=== PATIENT | female | born 1940 | race Caucasian/White ===

== ENCOUNTER 2023-04-06 23:38 | Emergency (ER) | payer MEDICARE, SELFPAY ==
[2023-04-06 23:49] VITALS: BP 177/73; PULSE 83; RESP 16; TEMP 36.4; O2SAT 98; BMI 25.0
--- NOTE | 2023-04-07 00:27 | ED.ABDPAIN ---
HPI - Abdominal Pain General Time Seen by Provider: 00:12 <Khushbu Higginbotham Filed: 04/07/23 02:26> Date Seen: 04/07/23 <Khushbu Higginbotham Filed: 04/07/23 02:26> Chief Complaint: Abdominal Pain <Khushbu Higginbotham Filed: 04/07/23 02:26> Stated Complaint: stomach ache, vomitting <Khushbu Luna Last Filed: 04/07/23 02:26> Time Seen by Provider: 04/06/23 23:41 <Khushbu Higginbotham Filed: 04/07/23 02:26> Source: patient <Khushbu Higginbotham Filed: 04/07/23 02:26> Mode of arrival: ambulatory <Khushbu Higginbotham Filed: 04/07/23 02:26> Limitations: no limitations <Khushbu Higginbotham Filed: 04/07/23 02:26> History of Present Illness HPI narrative: Patient is an 83-year-old female who presents with 1 episode of lower left-sided abdominal pain beginning this evening at 8:00 p.m. She notes the pain was diffuse and radiated around to her back. Patient described the pain as being ?stabbing? and lasted for approximately 1-2 hours. She tried taking 1 times and drinking water but was unable to keep that down and had 1 episode of emesis. Her pain was a 10/10 at that time but has since subsided to a 4/10. She has a history of appendectomy, hysterectomy, and a hernia that has never been operated on. Daughter states that at the time of the patients pain her abdomen was distended and hard as a rock. Patient denies any fevers, chills, chest pain, palpitations, shortness of breath, hematemesis, constipation, or any other complaints at this time. Denies any recent ill contacts. No recent travel. <Khushbu Higginbotham Filed: 04/07/23 02:26> Related Data Home Medications: Home Medications Medication Instructions Recorded Confirmed alendronate 70 mg tablet mg PO 04/06/23 amlodipine 5 mg tablet 5 mg PO DAILY 04/06/23 04/06/23 losartan 100 mg tablet 100 mg PO DAILY 04/06/23 04/06/23 metoprolol succinate 25 mg 25 mg PO DAILY 04/06/23 04/06/23 tablet,extended release 24 hr <Khushbu Zayas Filed: 04/07/23 02:26> Allergies/Adverse Reactions: Allergies Allergy/AdvReac Type Severity Reaction Status Date / Time No Known Drug Allergies Allergy Verified 04/06/23 23:53 <Khushbu Zayas Filed: 04/07/23 02:26> Review of Systems Const Denies: fever, chills or fatigue <Khushbu Miralupa Filed: 04/07/23 02:26> Cardio Denies: chest pain, palpitations, lightheadedness, shortness of breath with exertion or shortness of breath when lying down <Khushbu Miralupa - Last Filed: 04/07/23 02:26> Resp Denies: shortness of breath or cough <Khushbu Miralupa Filed: 04/07/23 02:26> GI Reports: abdominal pain, nausea and vomiting (one episode); Denies: heartburn, constipation or excessive passing of gas <Khushbu Miralupa Filed: 04/07/23 02:26> Denies: urinary frequency, urinary urgency or urinary incontinence <Khushbu Miralupa Filed: 04/07/23 02:26> Musculo Reports: back pain (resolved) <Khushbu [employer] Filed: 04/07/23 02:26> Endo Denies: fatigue <Khushbu Miralupa Filed: 04/07/23 02:26> PFSH PFSH Social History: Social History Smoking Status: Never smoker Do you use any of these nicotine containing products: None How often do you have a drink containing alcohol: never AUDIT-C Alcohol total score: 0 Non-prescribed substance use: denies use <Khushbu [employer] Filed: 04/07/23 02:26> Exam Const: Vital Signs, click to edit/add: Vital Signs - 24 hr 04/06/23 23:49 04/07/23 02:13 Temperature 97.6 F 97.6 F Pulse Rate [Pulse Oximeter] 83 74 Respiratory Rate 16 16 Blood Pressure [Ri ght Upper Arm] 177/73 H 155/74 H Pulse Oximetry 98 98 Oxygen Delivery Me thod Room Air Room Air <[employer] Last Filed: 04/07/23 02:26> Vital Signs, click to edit/add: Vital Signs - 24 hr 04/06/23 23:49 04/07/23 02:13 Temperature 97.6 F 97.6 F Pulse Rate [Pulse Oximeter] 83 74 Respiratory Rate 16 16 Blood Pressure [Ri ght Upper Arm] 177/73 H 155/74 H Pulse Oximetry 98 98 Oxygen Delivery Me thod Room Air Room Air <Addi Gauthier MD - Last Filed: 04/07/23 02:31> Documenting provider has reviewed patient's vital signs: yes <[employer] Last Filed: 04/07/23 02:26> Common normals: no apparent distress, average body habitus, oriented x3, no limitations, healthy appearing, alert and well nourished <[employer] Last Filed: 04/07/23 02:26> General appearance: well developed <[employer] Last Filed: 04/07/23 02:26> HENMT: Common normals: normocephalic, head/scalp atraumatic, hearing grossly normal bilaterally, external ears normal, external nose normal, moist oral mucous membranes, oropharynx normal, dentition normal and gingiva normal <[employer] Last Filed: 04/07/23 02:26> Head and scalp: normocephalic and atraumatic <[employer] Last Filed: 04/07/23 02:26> Nose: external nose normal <[employer] Last Filed: 04/07/23 02:26> External ear: external ears normal <[employer] Last Filed: 04/07/23 02:26> Neck & C-Spine: Common normals: no JVD <[employer] Last Filed: 04/07/23 02:26> Chest: Common normals: inspection of chest normal, palpation of chest normal, inspection of breasts normal and palpation of breasts normal <[employer] Last Filed: 04/07/23 02:26> Resp: Common normals: normal respiratory effort, no retractions, no use of accessory muscles and clear to auscultation bilaterally <[employer] Last Filed: 04/07/23 02:26> Auscultation: clear to auscultation bilaterally <Khushbu Miralupa - Last Filed: 04/07/23 02:26> Cardio: Common normals: no JVD, regular rate, regular rhythm, S1 normal heart sound, S2 normal heart sound, no gallops, no clicks, no murmurs, no rub and peripheral pulses 2+ throughout <[employer] Last Filed: 04/07/23 02:26> Rate: regular rate <Khushbu Miralupa - Last Filed: 04/07/23 02:26> Rhythm: regular rhythm <Khushbu Miralupa - Last Filed: 04/07/23 02:26> Heart sounds: S1 normal and S2 normal <Khushbu Miralupa - Last Filed: 04/07/23 02:26> Peripheral pulses: pulses 2+ throughout <Khushbu Miralupa - Last Filed: 04/07/23 02:26> GI: Common normals: Normal to inspection, nondistended, normoactive bowel sounds present and soft to palpation <Khushbu [employer] Last Filed: 04/07/23 02:26> Palpation: soft and hernia (reproducible left inguinal or femoral); non-tender, no guarding and not rigid <Khushbu [employer] Last Filed: 04/07/23 02:26> : Common normals: no CVA tenderness <Khushbu Miralupa - Last Filed: 04/07/23 02:26> Bladder/kidney exam: no CVA tenderness <[employer] Last Filed: 04/07/23 02:26> External Female Exam: hernia (reproducible left inguinal or femoral) <Khushbu [employer] Last Filed: 04/07/23 02:26> Back & Pelvis: Common normals: no CVA tenderness <Khushbu Miralupa - Last Filed: 04/07/23 02:26> Neuro: Common normals: oriented x3 <[employer] Last Filed: 04/07/23 02:26> Sensorium/orientation: alert <[employer] Last Filed: 04/07/23 02:26> Speech: speech normal <[employer] Last Filed: 04/07/23 02:26> Skin: Common normals: no rashes or lesions noted <Khushbu Gall - Last Filed: 04/07/23 02:26> General skin exam: no rashes or lesions noted <Khushbu Chana - Last Filed: 04/07/23 02:26> Course Course ED Course: I agree with the documentation above, I personally saw the patient, and was part of the HPI examination and treatment of this patient. All questions were answered for both the patient the patient's daughter. <Addi Gauthier MD - Last Filed: 04/07/23 02:31> Reevaluation(s) Time of Reevaluation #1: 00:26 <Khushbudavey Zayas - Last Filed: 04/07/23 02:26> Reevaluation #1: Patient evaluated by Dr. Gauthier, family updated on plan. <Khushbu Chana - Last Filed: 04/07/23 02:26> Time of Reevaluation #2: 02:00 <Khushbu Chana - Last Filed: 04/07/23 02:26> Reevaluation #2: Updated patient with lab and imaging results. Patient is doing well with mild residual discomfort at this time with resolved nausea. Discussed plan for follow-up and return precautions advised. <Khushbu Chana - Last Filed: 04/07/23 02:26> Vital Signs Vital signs: Initial Vital Signs Temperature 97.6 F 04/06/23 23:49 Temperature Source Temporal Artery Scan 04/06/23 23:49 Pulse Rate 83 04/06/23 23:49 Respiratory Rate 16 04/06/23 23:49 Blood Pressure 177/73 H 04/06/23 23:49 Blood Pressure Mean 107 H 04/06/23 23:49 Blood Pressure Position Sitting 04/06/23 23:49 Pulse Oximetry 98 04/06/23 23:49 Oxygen Delivery Method Room Air 04/06/23 23:49 Vital Signs Temperature 97.6 F 04/06/23 23:49 Pulse Rate 83 04/06/23 23:49 Respiratory Rate 16 04/06/23 23:49 Blood Pressure 177/73 H 04/06/23 23:49 Pulse Oximetry 98 04/06/23 23:49 Oxygen Delivery Method Room Air 04/06/23 23:49 Temperature 97.6 F 04/07/23 02:13 Pulse Rate 74 04/07/23 02:13 Respiratory Rate 16 04/07/23 02:13 Blood Pressure 155/74 H 04/07/23 02:13 Pulse Oximetry 98 04/07/23 02:13 Oxygen Delivery Method Room Air 04/07/23 02:13 <Khushbu Zayas - Last Filed: 04/07/23 02:26> Initial Vital Signs Temperature 97.6 F 04/06/23 23:49 Temperature Source Temporal Artery Scan 04/06/23 23:49 Pulse Rate 83 04/06/23 23:49 Respiratory Rate 16 04/06/23 23:49 Blood Pressure 177/73 H 04/06/23 23:49 Blood Pressure Mean 107 H 04/06/23 23:49 Blood Pressure Position Sitting 04/06/23 23:49 Pulse Oximetry 98 04/06/23 23:49 Oxygen Delivery Method Room Air 04/06/23 23:49 Vital Signs Temperature 97.6 F 04/06/23 23:49 Pulse Rate 83 04/06/23 23:49 Respiratory Rate 16 04/06/23 23:49 Blood Pressure 177/73 H 04/06/23 23:49 Pulse Oximetry 98 04/06/23 23:49 Oxygen Delivery Method Room Air 04/06/23 23:49 Temperature 97.6 F 04/07/23 02:13 Pulse Rate 74 04/07/23 02:13 Respiratory Rate 16 04/07/23 02:13 Blood Pressure 155/74 H 04/07/23 02:13 Pulse Oximetry 98 04/07/23 02:13 Oxygen Delivery Method Room Air 04/07/23 02:13 <Addi Gauthier MD - Last Filed: 04/07/23 02:31> MDM - Abdominal Pain MDM Narrative Medical decision making narrative: Patient is an 83-year-old female with a pertinent medical history of hypertension, hysterectomy, appendectomy, and known hernia who presents with one episode of diffuse stabbing abdominal pain radiating to her back beginning this evening at 20:00 lasting 1-2 hours. Patient tried 1 Tums tablet with no relief, followed by an episode of emesis. Her pain has since subsided and she is no longer nauseous. On exam, patient is afebrile and in no acute distress. Vitals are stable, but she is hypertensive upon arrival. Abdomen is soft, nontender and nondistended with normoactive bowel sounds. A reproducible left inguinal or femoral hernia was appreciated and reducible on exam. Will order Troponin, ECG, CBC, CRP, CMP, Lactate, Lipase, and CT abdomen to rule out SBO or bowel herniation. Will start patient on fluids for now as her pain is well controlled at this time. Discussed plan with patient and family, they understand and are in agreement. Lactate WNL. POC Troponin WNL, will repeat due to episode of emesis. Hgb, WBC, and RBCs mildly decreased. Glucose mildly elevated. Otherwise, no significant abnormal labs. CT findings consistent with a left inguinal hernia. Low suspicion of incarceration due to physical exam findings, patients level of pain, and absence of nausea and vomiting at this time. Patient passed ambulatory test. Accidental finding of a 4.4 cm adnexal cyst noted on CT, patient is aware and has been following with her PCP. Discussed the importance of following up with general surgery to discuss options for the hernia. Return precautions advised including fever, chills, increasing abdominal pain, nausea, and/or vomiting. Patient and family understand and are in agreement with the plan. <Khushbu Higginbotham Filed: 04/07/23 02:26> Differential Diagnosis Differential diagnosis: Likely abdominal pain, constipation, pancreatitis and small bowel obstruction <Khushbu Higginbotham Filed: 04/07/23 02:26> Lab Data Attestation: I reviewed the patient's lab results. <Khushbu Higginbotham Filed: 04/07/23 02:26> Labs: Lab Results 04/07/23 04/07/23 04/07/23 Range/Units 00:15 00:18 01:45 WBC 4.41 L (4.50-11.00) K/uL RBC 3.91 L (4.00-5.20) m/uL Hgb 10.5 L (12.0-16.0) gm/dL Hct 33.3 (33.0-51.0) % MCV 85 (80-100) fL MCH 27 (26-34) pg MCHC 32 (32-36) gm/dL RDW Coeff of Guillermo 14.1 (11.5-15.5) % Plt Count 155 (140-440) K/uL Neut % (Auto) 70.5 (42.0-72.0) % Lymph % (Auto) 16.6 L (20-44) % Simpson % (Auto) 7.7 (0.0-11.0) % Eos % (Auto) 4.5 (0.0-7.0) % Baso % (Auto) 0.7 (0.0-3.0) % Neut # (Auto) 3.10 (1.7-7.0) K/uL Lymph # (Auto) 0.70 L (0.90-2.90) K/uL Simpson # (Auto) 0.30 (0.00-0.90) K/UL Eos # (Auto) 0.20 (0.00-0.50) K/uL Baso # (Auto) 0.00 (0.00-0.30) K/uL Abs Immat Gran (auto) 0.00 (0.00-0.30) K/uL Imm/Tot Granulo (auto) 0.0 % Sodium 135 (135-149) mmol/L Potassium 3.6 (3.6-5.1) mmol/L Chloride 100 (96-114) mmol/L Carbon Dioxide 24 (20-32) mmol/L Anion Gap 11 (7-15) mEq/L BUN 28 (7-30) mg/dL Creatinine 0.7 (0.5-1.5) mg/dL Estimated Creat Clear 36.52 Estimated GFR 85 ml/min Glucose 182 H (60-115) mg/dL Lactate 0.9 (0.5-1.9) mmol/L Calcium 9.4 (8.4-10.6) mg/dL Total Bilirubin 0.3 (0.1-1.5) mg/dL Direct Bilirubin 0.0 (0.0-0.5) mg/dL AST 28 (12-35) U/L ALT 24 (4-35) U/L Alkaline Phosphatase 63 (40-150) U/L C-Reactive Protein 0.6 (0.5-1.0) mg/dL Total Protein 7.4 (6.0-8.3) g/dL Albumin 4.6 (3.3-5.0) g/dL Lipase 292 (23-300) U/L POC Troponin I 0.02 0.01 (0.01-0.04) ng/ml <Khushbu Zayas - Last Filed: 04/07/23 02:26> Lab Results 11/04/07/23 04/07/23 Range/Units 00:15 00:18 01:45 WBC 4.41 L (4.50-11.00) K/uL RBC 3.91 L (4.00-5.20) m/uL Hgb 10.5 L (12.0-16.0) gm/dL Hct 33.3 (33.0-51.0) % MCV 85 (80-100) fL MCH 27 (26-34) pg MCHC 32 (32-36) gm/dL RDW Coeff of Guillermo 14.1 (11.5-15.5) % Plt Count 155 (140-440) K/uL Neut % (Auto) 70.5 (42.0-72.0) % Lymph % (Auto) 16.6 L (20-44) % Simpson % (Auto) 7.7 (0.0-11.0) % Eos % (Auto) 4.5 (0.0-7.0) % Baso % (Auto) 0.7 (0.0-3.0) % Neut # (Auto) 3.10 (1.7-7.0) K/uL Lymph # (Auto) 0.70 L (0.90-2.90) K/uL Simpson # (Auto) 0.30 (0.00-0.90) K/UL Eos # (Auto) 0.20 (0.00-0.50) K/uL Baso # (Auto) 0.00 (0.00-0.30) K/uL Abs Immat Gran (auto) 0.00 (0.00-0.30) K/uL Imm/Tot Granulo (auto) 0.0 % Sodium 135 (135-149) mmol/L Potassium 3.6 (3.6-5.1) mmol/L Chloride 100 (96-114) mmol/L Carbon Dioxide 24 (20-32) mmol/L Anion Gap 11 (7-15) mEq/L BUN 28 (7-30) mg/dL Creatinine 0.7 (0.5-1.5) mg/dL Estimated Creat Clear 36.52 Estimated GFR 85 ml/min Glucose 182 H (60-115) mg/dL Lactate 0.9 (0.5-1.9) mmol/L Calcium 9.4 (8.4-10.6) mg/dL Total Bilirubin 0.3 (0.1-1.5) mg/dL Direct Bilirubin 0.0 (0.0-0.5) mg/dL AST 28 (12-35) U/L ALT 24 (4-35) U/L Alkaline Phosphatase 63 (40-150) U/L C-Reactive Protein 0.6 (0.5-1.0) mg/dL Total Protein 7.4 (6.0-8.3) g/dL Albumin 4.6 (3.3-5.0) g/dL Lipase 292 (23-300) U/L POC Troponin I 0.02 0.01 (0.01-0.04) ng/ml <Addi Gauthier MD - Last Filed: 04/07/23 02:31> ECG Data Attestation: I personally reviewed and interpreted this ECG as follows: <Addi Gauthier MD - Last Filed: 04/07/23 02:31> Prior ECG tracings: not available for review <Addi Gauthier MD - Last Filed: 04/07/23 02:31> Interpretation: EKG shows normal sinus rhythm with a normal ventricular rate, some non does script ST wave abnormalities are notable laterally inferiorly. <Addi Gauthier MD - Last Filed: 04/07/23 02:31> Discharge Plan Discharge Clinical Impression: Inguinal hernia of left side without obstruction or gangrene <Khushbu Luna Last Filed: 04/07/23 02:26> Patient Disposition: Home w/ Parent or Adult <Khushbu Luna Last Filed: 04/07/23 02:26> Condition: Stable <Khushbu Luna Last Filed: 04/07/23 02:26> Instructions: Open Herniorrhaphy (DC), Laparoscopic Herniorrhaphy (DC), Inguinal Hernia (ED), Inguinal Hernia Repair (DC) <Khushbu Luna Last Filed: 04/07/23 02:26> Additional Instructions: Home, rest, follow-up with general surgery, return here if increasing abdominal pain vomiting, or other issues. Recommend clear fluids times 12 hours, then and slowly increase diet <Khushbu Luna Last Filed: 04/07/23 02:26> Activity Level: Light activity <Khushbu Zayas - Last Filed: 04/07/23 02:26> Light activity <Addi Gauthier MD - Last Filed: 04/07/23 02:31> Prescriptions: No Action alendronate 70 mg tablet PO Patient Comments: PLEASE SEE ATTACHED FOR DETAILED DIRECTIONS amlodipine 5 mg tablet 5 mg PO DAILY metoprolol succinate 25 mg tablet extended release 24 hr 25 mg PO DAILY losartan 100 mg tablet 100 mg PO DAILY <Khushbu Zayas - Last Filed: 04/07/23 02:26> Follow Up/Referrals: Maritza Silva MD [Staff Physician] - Gui Woo MD [Staff Physician] - Krys Murillo PA-C [Primary Care Provider] - Juli Poole MD [Staff Physician] - <Khushbu Zayas - Last Filed: 04/07/23 02:26> Stand Alone Forms: MyHealth Info Instructions <Khushbu Zayas - Last Filed: 04/07/23 02:26>
--- NOTE | 2023-04-07 00:34 | CRLHL7_ITS ---
For Patients: As a result of the Century Cures Act, medical imaging exams and procedure reports are released immediately into your electronic medical record. You may view this report before your referring provider. If you have questions, please contact your health care provider. INDICATION: Left lower quadrant pain. TECHNIQUE: CT abdomen and pelvis without contrast. COMPARISON: None. FINDINGS: Lower chest: Scattered atelectasis. 5 millimeter right middle lobe pulmonary nodule. Liver: Normal in size and attenuation. No suspicious masses. Gallbladder and bile ducts: No stones or inflammation. No biliary dilatation. Pancreas: Unremarkable. No mass or inflammation. Spleen: Normal in size. No masses. Adrenal glands: Normal in size. No nodules. Kidneys: Normal in size. No suspicious masses, stones, or hydronephrosis. GI tract: Colonic diverticulosis. Normal in caliber. No sign of mass or inflammation. Vasculature: Moderate aorto iliac arterial calcifications. Abdominal aorta is normal in caliber. Lymph nodes: No lymphadenopathy. Peritoneum/Abdominal Wall: Left inguinal hernia containing a loop of small bowel without obstruction. No sign of mass or infiltration. No free air or significant free fluid. Pelvis: Incidental 4.4 centimeter multiloculated cystic lesion in the right adnexa.. No pelvic masses. Bones: Right hip arthroplasty causing streak artifact. Degenerative changes. IMPRESSION: Left inguinal hernia containing loop of small bowel without obstruction. Unfortunately unable to evaluate for strangulation/ischemia secondary to the noncontrast nature of the study, although no secondary findings seen on this examination. Recommend correlation with lactic acid and with physical examination to evaluate for incarceration. Colonic diverticulosis without diverticulitis. Incidental 4.4 centimeter multiloculated cystic lesion in the right adnexa. Recommend correlation with prior imaging if available. If not, consider outpatient nonemergent pelvic ultrasound. Please note that all CT scans at this facility use dose modulation, iterative reconstruction, and/or weight-based dosing when appropriate to reduce radiation dose to as low as reasonably achievable. Dictated by Ladarius Zaidi MD @ 04/07/2023 1:45:14 AM (Electronically Signed)
[2023-04-07 00:38] LABS: Troponin, Point-of-Care* 0.02 ng/ml (0.01-0.04)
[2023-04-07 00:48] LABS: Lactate* 0.9 mmol/L (0.5-1.9)
[2023-04-07 00:50] LABS: Basophils Percent Auto 0.7 % (0.0-3.0); Eosinophils Percent Auto 4.5 % (0.0-7.0); Hematocrit 33.3 % (33.0-51.0); Hemoglobin* 10.5 gm/dL (12.0-16.0); Lymphocytes Percent Auto 16.6 % (20-44); Mean Corpuscular HGB Conc 32 gm/dL (32-36); Mean Corpuscular Hemoglobin 27 pg (26-34); Mean Corpuscular Volume 85 fL (80-100); Monocytes Percent Auto 7.7 % (0.0-11.0); Neutrophils Percent Auto 70.5 % (42.0-72.0); Platelet Count* 155 K/uL (140-440); RDW Coefficient of Variation % 14.1 % (11.5-15.5); Red Blood Count 3.91 m/uL (4.00-5.20); White Blood Count* 4.41 K/uL (4.50-11.00)
[2023-04-07 00:58] LABS: Albumin* 4.6 g/dL (3.3-5.0); Chloride* 100 mmol/L (96-114)
[2023-04-07 00:59] LABS: Sodium* 135 mmol/L (135-149)
[2023-04-07 01:00] LABS: Potassium* 3.6 mmol/L (3.6-5.1)
[2023-04-07 01:01] LABS: Creatinine* 0.7 mg/dL (0.5-1.5); Est. Creatinine Clearance* 36.52; Estimated Glomerular Filt Rate 85 ml/min
[2023-04-07 01:02] LABS: Alanine Aminotransferase* 24 U/L (4-35); Alkaline Phosphatase* 63 U/L (40-150); Anion Gap 11 mEq/L (7-15); Aspartate Amino Transferase* 28 U/L (12-35); Bilirubin Total* 0.3 mg/dL (0.1-1.5); Blood Urea Nitrogen* 28 mg/dL (7-30); Calcium* 9.4 mg/dL (8.4-10.6); Carbon Dioxide* 24 mmol/L (20-32); Glucose* 182 mg/dL (60-115); Lipase* 292 U/L (23-300); Total Protein* 7.4 g/dL (6.0-8.3)
[2023-04-07 01:05] LABS: C Reactive Protein* 0.6 mg/dL (0.5-1.0); Slide Review Reflex No
[2023-04-07 01:57] LABS: Troponin, Point-of-Care* 0.01 ng/ml (0.01-0.04)
[2023-04-07 02:13] VITALS: BP 155/74; PULSE 74; RESP 16; TEMP 36.4; O2SAT 98
== END 2023-04-07 02:20 | disposition home or self-care (01) ==
PROVIDERS: Emergency Provider Family Medicine; PCP Physician Assistant
DX: K40.90 Unilateral inguinal hernia, without obstruction or gangrene, not specified as recurrent (principal)
CPT/HCPCS: 36415; 74176; 80048; 80076; 83605; 83690; 84484; 85025; 86140; 93005; 99284; 99285

== ENCOUNTER 2023-05-09 12:49 | Emergency (ER) | payer MEDICARE, SELFPAY ==
[2023-05-09 13:03] VITALS: BP 185/87; PULSE 85; RESP 18; TEMP 36.6; O2SAT 96; BMI 24.8
--- OUTSIDE RECORDS SUMMARY | 2023-05-09 13:19 | XMS_ITS | Continuity of Care Document ---
Author Name Unknown Organization [facility] Address [address] [address] [place] [address] Phone Care Team Providers Care Water Filter Cleaner Name Role Phone Unavailable Unavailable Unavailable Allergies, Adverse Reactions, Alerts Substance Reaction Status Criticality No Known Allergies Active No Inform ation Medications Medication Instructions Dosage Effective Dates (start - stop) Status Comments estradiol 0.01% (0.1 mg/gram) vaginal cream insert (1G) by vaginal route every week 1 G - Active losartan 100 mg tablet take 1 tablet by oral route every day 100 MG - Active amlodipine 5 mg tablet take 1 tablet by oral route every day 5 MG - Active Co Q-10 100 mg capsule take 1 by oral route every evening 1 - Active Vitamin D3 50 mcg (2,000 unit) capsule - Active Tylenol Extra Strength 500 mg tablet take 2 tablet by oral route 2 times every day as needed 1000 MG - Active Vazalore 81 mg capsule take 1 capsule by oral route every day 81 MG - Active Dulcolax Stool Softener (docusate) 100 mg capsule take 1 capsule by oral route every day at bedtime as needed 100 MG - Active Procedures Procedure Date Offic/outpt E&m Estab Mod-hi 2 22 Ugi Endo; W/us Guid Asp/bx Advance Directives Directive Yes / No Effective Date File Name No Information Encounters Encounter Description Practice Location Reason(s) For Visit Diagnoses Date Provider Providers Copied on Encounter Offic/outpt E&m Estab Mod-hi 2 [facility], [address] [address], [place], [id number], [place] tel:[phone] [facility] GI Symptoms or Concerns (chief complaint) Pancreas cystGeneralized abdominal painRight ovarian cyst 2 No Information Referring Provider: Referral Self, USE FOR SELF REFERRALS. [facility], [address] [address], [place], [id number], [place] tel:[phone] [facility] Pancreas cyst Jan-0 1 Oscar Melendez [address] [facility], [facility] [address], [place], [address], [place]. tel:[phone] [facility], [address] [address], [place], [id number], [place] tel:[phone] [facility] No Information 1 Oscar Melendez [address] [facility], [facility] [address], [place], [place], [id number], [place]. tel:[phone] Referring Provider: Kandis Moore MD, [address] [facility] [address], [place], [address] . tel:[phone] [facility], [address] [address], [place], [id number], [place] tel:[phone] [facility] No Information 1 Oscar Melendez [address] [place] [address], [facility] [address], [place], [id number], [place]. tel:[phone] Family History Family Member Type Diagnosis Age At Onset Brother Problem (finding) Cancer, skin Immunizations Vaccine Date Status Comments influenza, high dose seasona l, preservative-free administered Note: [facility] bi-direct ional interface ; Source: Other Registry influenza, high dose seasona l, preservative-free administered Note: [facility] bi-direct ional interface ; Source: Other Registry influenza, high dose seasona l, preservative-free administered Note: [facility] bi-direct ional interface ; Source: Other Registry Influenza, seasonal, injecta ble, preservative free administered Note: [facility] bi-direct ional interface ; Source: Other Registry Novel [id number], injectable administered Note: [facility] bi-direct ional interface ; Source: Other Registry Influenza, seasonal, injecta ble, preservative free administered Note: [facility] bi-direct ional interface ; Source: Other Registry Influenza, seasonal, injecta ble, preservative free administered Note: [facility] bi-direct ional interface ; Source: Other Registry Influenza, seasonal, injecta ble, preservative free administered Note: [facility] bi-direct ional interface ; Source: Other Registry Influenza, seasonal, injectable administe red Note: [facility] bi- directional interface ; Source: Other Registry Influenza, seasonal, injectable administe red Note: [facility] bi- directional interface ; Source: Other Registry tetanus and diphtheria toxoi ds, adsorbed, preservative free, for adult use (2 Lf of tetanus toxoid and 2 Lf of diphtheria toxoid) administered Note: [facility] bi-direct ional interface ; Source: Other Registry Pneumovax 23 administered Note: [facility] bi-d irectional interface ; Source: Other Registry Influenza, seasonal, injectable administe red Note: [facility] bi- directional interface ; Source: Other Registry Influenza, seasonal, injectable administe red Note: [facility] bi- directional interface ; Source: Other Registry Influenza, seasonal, injectable administe red Note: [facility] bi- directional interface ; Source: Other Registry Payers Payer name Insurance type Covered alliance party ID Authoriza tion(s) Blue [employer] Medicare Advantage [id number] Social History Type Description Quantity Date Captured Comments Alcohol Use Details No Caffeine Use Details Unknown Tobacco Use Status undefined Smoking Status Former smoker Sex Female Vital Signs Date / Time: Height Weight BMI Pulse Rate Blood Pressure Temperature Respiratory Rate Body Surface Area Head Circumference Head Circ. Percentile Wt./David. Percentile BMI percentile Pulse Ox Inhaled Ox 1:49 PM 60.00 in 58.786 kg (129.60 lbs) 25.3 1 kg/m eter (2) 81 /min 158/72 mm[Hg] Chief Complaint And Reason For Visit From encounter dated '05/11/2022 14:15'. GI Symptoms or Concerns (chief complaint). Description: Sarah is a pleasant 82-year-old female who is an established patient with our service having last had a endoscopy with ultrasound 01/22/[address] Moore for evaluation of pancreatic cyst. Pt returns today for recurrent symptoms of abdominal pain. Patient describes a 5-6 month history of abdominal pain that had increased severity 2 weeks ago. Due to increased pain she presented to her primary care provider. She describes symptoms as feeling heavy and was aggravated with standing. She also stated that at times she would feel her abdomen was bloated and hard. She denies changes in her bowel pattern noting that she has a bowel movement every day. She denies bloody or black stools. She denies nausea or vomiting. Patient is symptom-free today noting symptoms spontaneously resolved one week ago. Reviewed 05/05/22 abdominal x-ray negativefor bowel obstruction. Reports unchanged from previous x-ray 10/30/2020.Reviewed 2020 MRI with pancr eatic cyst measuring 16 millimeters in the uncinate process of the pancreas. Communication with themain pancreatic duct was suspected. This was followed by the above noted EUS biopsy was negative for cancer in the pancreas cyst. Due to presenting symptoms PCP ordered repeat CT of her abdomen and pelvis scheduled on 05/12/2022. There was an ultrasound of the pelvis complete transabdominal and transvaginal also recommended for evaluation of noted right ovarian cyst. At the end of our conversation the patient then noted that she thought she was here for evaluation of that ovarian cyst. Reason For Referral Reason For Referral No Information Plan Of Treatment Date Type Action Status Referral Ordered: MRI Pancreas WITH Contrast Appointment date/timeframe: 04/23/2021 ordered History Of Present Illness Encounter Date Complaint History Of Prese nt Illness GI Symptoms or Concerns Sarah is a pleasant 82-year-old female who is an established patient with our service having last had a endoscopy with ultrasound 01/22/[address] Moore for evaluation of pancreatic cyst. Pt returns today for recurrent symptoms of abdominal pain. Patient describes a 5-6 month history of abdominal pain that had increased severity 2 weeks ago. Due to increased pain she presented to her primary care provider. She describes symptoms as feeling heavy and was aggravated with standing. She also stated that at times she would feel her abdomen was bloated and hard. She denies changes in her bowel pattern noting that she has a bowel movement every day. She denies bloody or black stools. She denies nausea or vomiting. Patient is symptom-free today noting symptoms spontaneously resolved one week ago. Reviewed 05/05/22 abdominal x-ray negative for bowel obstruction. Reports unchanged from previous x-ray 10/30/2020.Reviewed 2020 MRI with pancreatic cyst measuring 16 millimeters in the uncinate process of the pancreas. Communication with the main pancreatic duct was suspected. This was followed by the above noted EUS biopsy was negative for cancer in the pancreas cyst. Due to presenting symptoms PCP ordered repeat CT of her abdomen and pelvis scheduled on 05/12/2022. There was an ultrasound of the pelvis complete transabdominal and transvaginal also recommended for evaluation of noted right ovarian cyst. At the end of our conversation the patient then noted that she thought she was here for evaluation of that ovarian cyst. Functional Status Date Functional Assessmen t No Information Instructions Date Instruction Additional Infor jazlyn Sarah it was nice leonardo ting you today. I am glad to hear your symptoms have improved and you are feeling well. I will have you proceed with the abdominal CT scan and US of the pelvis with TA and TV as recommended/ordered by your primary provider. Follow up is pending review of these imaging studies. If there are changes or progression of the pancreatic cyst evaluation with endoscopic ultrasound could be considered. For your suspected ovarian cyst I will have you follow up with gynecology specialty or whomever your primary recommends. As discussed I Related to Generalized abdominal pain Assessments Type Assessment Date assessment Pancreas cyst assessment Generalized abdominal pain Apr- assessment Right ovarian cyst impression 82-year-old female s elf-referred for complaints of persistent on and off abdominal pain. Patient has history of previous noted pancreatic cyst evaluated by our service on 01/22/2021 with EUS biopsy negative for cancer. Patient presents to clinic asymptomatic. She states that she is had no abdominal symptoms now for 1 week. She is questioning if symptoms could be related to either the known pre-existing pancreatic cyst or the ovarian cyst. Patient has abdominal CT scan scheduled for 05/12/2022 for further evaluation also noted is order for an ultrasound transabdominal and transvaginal to evaluate the ovarian cyst. I encouraged patient to follow-up with her primary care provider in regards to both of the result of these tests if further follow-up or evaluation needs to be completed through our office she was instructed to give us a call.Advised pt pending results of pelvic ultrasound, follow up with gynecology would be most appropriate. Patient Care Teams Name Effective Dates (start - stop) Status Members No Information
--- OUTSIDE RECORDS SUMMARY | 2023-05-09 13:19 | XMS_ITS | Continuity of Care Document ---
Author Name Unknown Organization [facility] Address [address] [address] [place] [address] Phone Care Team Providers Care Therapist Rrt Name Role Phone Unavailable Unavailable Unavailable Allergies, [...] on Encounter Offic/outpt E&m Estab Mod-hi 2 [facility], [address] [address], [place], [id number], [place] tel:[phone] [facility] GI Symptoms or Concerns (chief complaint) Pancreas cystGeneralized abdominal painRight ovarian cyst 2 No Information Referring Provider: Referral Self, USE FOR SELF REFERRALS. [facility], [address] [address], [place], [id number], [place] tel:[phone] [facility] Pancreas cyst Jan-0 1 Oscar Melendez [address] [facility], [facility] [address], [place], [id number], [place]. tel:[phone] [facility], [address] [address], [place], [id number], [place] tel:[phone] [facility] No Information 1 Oscar Melendez [address] [facility], [facility] [address], [place], [place], [id number], [place]. tel:[phone] Referring Provider: Kandis Moore MD, [address] [facility] [address], [place], [address] . tel:[phone] [facility], [address] [address], [place], [id number], [place] tel:[phone] [facility] No Information 1 Oscar Melendez [address] [place] [address], [facility] [address], [place], [id number], [place]. tel:[phone] Family History Family Member Type Diagnosis Age [...] ional interface ; Source: Other Registry Novel [id number], injectable administered Note: [facility] bi-direct ional interface [...] Registry Payers Payer name Insurance type Covered democrat ID Authoriza tion(s) Blue Cross Medicare Advantage [id number] Social History Type Description Quantity Date [...]
--- NOTE | 2023-05-09 13:22 | ED_ITS ---
HPI - General Adult General Date Seen: 05/09/23 Chief complaint: Abdominal Pain Stated complaint: hernia pain Time Seen by Provider: 05/09/23 12:57 Source: patient Mode of arrival: ambulatory Limitations: no limitations History of Present Illness HPI narrative: Patient is an 83-year-old female that she of hypertension, presenting to the emergency department for left groin pain. She is scheduled to have hernia repair tomorrow but noticed left lower groin pain that started this morning around 08:00. Roughly 30 minutes prior to arrival she noticed swelling in a hard mass in her left inguinal region. She has been unable to reduce the area. She states the only time she has had this mass was a month ago when she came in for the hernia initially. It was reducible at that time. Denies fevers, chills, diarrhea, constipation, lightheadedness, dizziness, weakness, fatigue. Related Data Home Medications Medication Instructions Recorded Confirmed alendronate 70 mg tablet mg PO 04/06/23 04/13/23 amlodipine 5 mg tablet 5 mg PO DAILY 04/06/23 04/13/23 losartan 100 mg tablet 100 mg PO DAILY 04/06/23 04/13/23 aspirin 81 mg tablet 81 mg PO DAILY 05/05/23 05/05/23 calcium carbonate 600 mg calcium 300 mg PO DAILY 05/05/23 05/05/23 (1,500 mg) tablet cholecalciferol (vitamin D3) .ROUTE 05/05/23 coenzyme Q10 100 mg capsule 100 mg PO DAILY 05/05/23 05/05/23 docusate sodium 100 mg capsule 100 mg PO DAILY 05/05/23 05/05/23 (Colace) estradiol 0.01% (0.1 mg/gram) 2 g vaginal DAILY 05/05/23 05/05/23 vaginal cream (Estrace) hydrocortisone 2.5 % topical cream 1 applic topical DAILY PRN 05/05/23 05/05/23 losartan 100 mg tablet 100 mg PO DAILY 05/05/23 05/05/23 prednisolone acetate 1 % eye 1 drp ophthalmic (eye) QID 05/05/23 05/05/23 drops,suspension Allergies Allergy/AdvReac Type Severity Reaction Status Date / Time phenytoin Allergy Seizure Verified 05/05/23 09:53 Review of Systems Status of ROS: Reports: 10 or more systems reviewed and unremarkable except as noted in History and below PFSH PFSH Surgical History History of lumpectomy of right breast ?Z98.890 - Other specified postprocedural states (ICD-10) Hx of tonsillectomy ?Z90.89 - Acquired absence of other organs (ICD-10) History of open reduction and internal fixation (ORIF) procedure ?Z98.890 - Other specified postprocedural states (ICD-10) History of left knee replacement ?Z96.652 - Presence of left artificial knee joint (ICD-10) History of right hip replacement ?Z96.641 - Presence of right artificial hip joint (ICD-10) Hx of hysterectomy ?Z90.710 - Acquired absence of both cervix and uterus (ICD-10) Hx of bilateral cataract extraction ?Z98.41 - Cataract extraction status, right eye (ICD-10) ?Z98.42 - Cataract extraction status, left eye (ICD-10) History of appendectomy ?Z90.49 - Acquired absence of other specified parts of digestive tract (ICD- 10) History of radiofrequency ablation (RFA) procedure for cardiac arrhythmia ?Z98.890 - Other specified postprocedural states (ICD-10) S/P hysterectomy ?Z90.710 - Acquired absence of both cervix and uterus (ICD-10) Social History Narrative: Patient lives independently. 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 Smoking Status: Never smoker Do you use any of these nicotine containing products: None How often do you have a drink containing alcohol: never AUDIT-C Alcohol total score: 0 Non-prescribed substance use: denies use Exam Narrative: Exam Narrative: Const: Well-nourished, Well-developed, in mild distress Eyes: PERRL, no conjunctival injection, and symmetrical lids HENT: Atraumatic external nose and ears. Moist mucous membranes. Neck: Symmetric, trachea midline, No thyromegaly. CVS: RRR, No murmurs or gallops. Peripheral pulses 2+ and equal in all extremities RESP: Unlabored respiratory effort. Clear to auscultation bilaterally. GI: Tender left inguinal hernia that is not reducible and tender to palpation. Masses hard but no overlying skin changes. MSK:Extremities w/o deformity, Normal Active ROM Skin: Warm, Dry. No rashes or lesions. Neuro: Normal Muscle tone, No focal neurological deficits. Psych: Awake, Alert, & Oriented x3. Appropriate mood and affect. Const: Vital Signs, click to edit/add: Vital Signs - 24 hr 05/09/23 13:03 Temperature 98 F Pulse Rate [Pulse Oximeter] 85 Respiratory Rate 18 Blood Pressure [Le ft Upper Arm] 185/87 H Pulse Oximetry 96 Oxygen Delivery Me thod Room Air Course Vital Signs Vital signs: Initial Vital Signs Temperature 98 F 05/09/23 13:03 Temperature Source Temporal Artery Scan 05/09/23 13:03 Pulse Rate 85 05/09/23 13:03 Pulse Rhythm Regular 05/09/23 13:03 Respiratory Rate 18 05/09/23 13:03 Blood Pressure 185/87 H 05/09/23 13:03 Blood Pressure Mean 119 H 05/09/23 13:03 Blood Pressure Position Supine 05/09/23 13:03 Pulse Oximetry 96 05/09/23 13:03 Oxygen Delivery Method Room Air 05/09/23 13:03 Vital Signs Temperature 98 F 05/09/23 13:03 Pulse Rate 85 05/09/23 13:03 Respiratory Rate 18 05/09/23 13:03 Blood Pressure 185/87 H 05/09/23 13:03 Pulse Oximetry 96 05/09/23 13:03 Oxygen Delivery Method Room Air 05/09/23 13:03 Temperature 98 F 05/09/23 13:03 Pulse Rate 85 05/09/23 13:03 Respiratory Rate 18 05/09/23 13:03 Blood Pressure 185/87 H 05/09/23 13:03 Pulse Oximetry 96 05/09/23 13:03 Oxygen Delivery Method Room Air 05/09/23 13:03 Medications Administered Medications: Discontinued Medications Generic Name Dose Route Start Last Admin Trade Name Freq PRN Reason Stop Dose Admin Morphine Sulfate 4 mg 05/09/23 13:13 05/09/23 13:51 Morphine 4 Mg/Ml Inj IVP 05/09/23 13:14 4 mg ONCE ONE Administration Medical Decision Making MDM Narrative Medical decision making narrative: Patient is a 3-year-old female presenting for an incarcerated left inguinal hernia. At this time and does not appear to be strangulated hernia I was unable to initially reduce the hernia so patient was placed in Trendelenburg with an ice pack and given IV morphine. But time we got the IV and gave her morphine the hernia reduced started own and her symptoms have resolved. I did o rder order CBC and BMP for possible eating CT scan and to look for signs of elevated white count as that could be another sign of strangulation. We then ambulated the patient in to tolerate this well. The hernia did come back out but is easily reducible with no pain. I informed the patient she needs to reduce the hernia every time she gets up and moves around. She does have surgery tomorrow so I do not believe is necessary to keep her in the hospital for this and she is with her son. CBC and BMP showed no concerning abnormalities other than a slightly low sodium at 129. This is abnormal for her but she is not having any symptoms from this and I do not believe this has to be worked up further at this time. She will be discharged home. Lab Data Labs: Lab Results 05/09/23 Range/Units 13:40 WBC 4.50 (4.50-11.00) K/uL RBC 4.23 (4.00-5.20) m/uL Hgb 11.4 L (12.0-16.0) gm/dL Hct 35.3 (33.0-51.0) % MCV 84 (80-100) fL MCH 27 (26-34) pg MCHC 32 (32-36) gm/dL RDW Coeff of Guillermo 14.5 (11.5-15.5) % Plt Count 246 (140-440) K/uL Neut % (Auto) 69.5 (42.0-72.0) % Lymph % (Auto) 17.6 L (20-44) % [place] % (Auto) 8.2 (0.0-11.0) % Eos % (Auto) 3.1 (0.0-7.0) % Baso % (Auto) 0.9 (0.0-3.0) % Neut # (Auto) 3.13 (1.7-7.0) K/uL Lymph # (Auto) 0.80 L (0.90-2.90) K/uL [place] # (Auto) 0.40 (0.00-0.90) K/UL Eos # (Auto) 0.14 (0.00-0.50) K/uL Baso # (Auto) 0.04 (0.00-0.30) K/uL Abs Immat Gran (auto) 0.03 (0.00-0.30) K/uL Imm/Tot Granulo (auto) 0.7 % Sodium 129 L (135-149) mmol/L Potassium 4.0 (3.6-5.1) mmol/L Chloride 95 L (96-114) mmol/L Carbon Dioxide 21 (20-32) mmol/L Anion Gap 13 (7-15) mEq/L BUN 17 (7-30) mg/dL Creatinine 0.6 (0.5-1.5) mg/dL Estimated Creat Clear 36.23 Estimated GFR 88 ml/min Glucose 122 H (60-115) mg/dL Calcium 9.9 (8.4-10.6) mg/dL Discharge Plan Discharge Clinical Impression: Hernia, inguinal, left Patient Disposition: Home, Self-Care Condition: Improved Instructions: Inguinal Hernia (ED) Additional Instructions: Make sure every time he get up and walk around that when he sits down again or lay down to reduce the hernia. If you are unable to reduce it return to emergency department for re-evaluation. Of note your sodium was also low. Is not at a concerning point at this time but do recommend follow-up with primary care provider for this Prescriptions: No Action alendronate 70 mg tablet PO Patient Comments: PLEASE SEE ATTACHED FOR DETAILED DIRECTIONS amlodipine 5 mg tablet 5 mg PO DAILY losartan 100 mg tablet 100 mg PO DAILY aspirin 81 mg tablet 81 mg PO DAILY calcium carbonate 600 mg calcium (1,500 mg) tablet 300 mg PO DAILY cholecalciferol (vitamin D3) .ROUTE coenzyme Q10 100 mg capsule 100 mg PO DAILY docusate sodium [Colace] 100 mg capsule 100 mg PO DAILY estradiol [Estrace] 0.01 % (0.1 mg/gram) cream 2 g vaginal DAILY Rx Instructions: for 7 days hydrocortisone 2.5 % cream 1 applic topical DAILY PRN losartan 100 mg tablet 100 mg PO DAILY prednisolone acetate 1 % drops,suspension 1 drp ophthalmic (eye) QID Follow Up/Referrals: Krys Murillo PA-C [Primary Care Provider] - Stand Alone Forms: Celery Info Instructions
[2023-05-09] MEDS: MORPHINE 4 MG/ML INJ IVP (13:51)
[2023-05-09 14:02] LABS: Basophils Absolute Auto 0.04 K/uL (0.00-0.30); Basophils Percent Auto 0.9 % (0.0-3.0); Eosinophils Absolute Auto 0.14 K/uL (0.00-0.50); Eosinophils Percent Auto 3.1 % (0.0-7.0); Hematocrit 35.3 % (33.0-51.0); Hemoglobin* 11.4 gm/dL (12.0-16.0); Immature Granulocytes Abs Auto 0.03 K/uL (0.00-0.30); Immature Granulocytes Pct Auto 0.7 %; Lymphocytes Percent Auto 17.6 % (20-44); Mean Corpuscular HGB Conc 32 gm/dL (32-36); Mean Corpuscular Hemoglobin 27 pg (26-34); Mean Corpuscular Volume 84 fL (80-100); Monocytes Percent Auto 8.2 % (0.0-11.0); Neutrophils Absolute Auto 3.13 K/uL (1.7-7.0); Neutrophils Percent Auto 69.5 % (42.0-72.0); Platelet Count* 246 K/uL (140-440); RDW Coefficient of Variation % 14.5 % (11.5-15.5); Red Blood Count 4.23 m/uL (4.00-5.20)
[2023-05-09 14:16] LABS: Slide Review Reflex No
[2023-05-09 14:28] LABS: Chloride* 95 mmol/L (96-114); Sodium* 129 mmol/L (135-149)
[2023-05-09 14:31] LABS: Anion Gap 13 mEq/L (7-15); Blood Urea Nitrogen* 17 mg/dL (7-30); Carbon Dioxide* 21 mmol/L (20-32); Creatinine* 0.6 mg/dL (0.5-1.5); Est. Creatinine Clearance* 36.23; Estimated Glomerular Filt Rate 88 ml/min
[2023-05-09 14:32] LABS: Calcium* 9.9 mg/dL (8.4-10.6); Glucose* 122 mg/dL (60-115)
== END 2023-05-09 14:45 | disposition home or self-care (01) ==
PROVIDERS: Emergency Provider Student in an Organized Health Care Education/Training Program; PCP Physician Assistant
DX: K40.31 Unilateral inguinal hernia, with obstruction, without gangrene, recurrent (principal)
CPT/HCPCS: 36415; 80048; 85025; 96374; 99283; J2270

== ENCOUNTER 2023-05-10 06:03 | Day surgery (SDC) | payer MEDICARE, SELFPAY ==
--- OUTSIDE RECORDS SUMMARY | 2023-05-10 06:07 | XMS_ITS | Continuity of Care Document ---
Author Name Unknown Organization [facility] Address [address] [address] [place] [address] Phone Care Team Providers Care Homeland Security Program Specialist Name Role Phone Unavailable Unavailable Unavailable Allergies, [...] on Encounter Offic/outpt E&m Estab Mod-hi 2 [facility], [address] [address], [place], [id number], [place] tel:[phone] [facility] GI Symptoms or Concerns (chief complaint) Pancreas cystGeneralized abdominal painRight ovarian cyst 2 No Information Referring Provider: Referral Self, USE FOR SELF REFERRALS. [facility], [address] [address], [place], [id number], [place] tel:[phone] [facility] Pancreas cyst Jan-0 1 Oscar Melendez [address] [facility], [facility] [address], [place], [id number], [place]. tel:[phone] [facility], [address] [address], [place], [id number], [place] tel:[phone] [facility] No Information 1 Oscar Melendez [address] [facility], [facility] [address], [place], [place], [id number], [place]. tel:[phone] Referring Provider: Kandis Moore MD, [address] [facility] [address], [place], [address] . tel:[phone] [facility], [address] [address], [place], [id number], [place] tel:[phone] [facility] No Information 1 Oscar Melendez [address] [place] [address], [facility] [address], [place], [id number], [place]. tel:[phone] Family History Family Member Type Diagnosis Age [...] ional interface ; Source: Other Registry Novel [id number], injectable administered Note: [facility] bi-direct ional interface [...] Registry Payers Payer name Insurance type Covered constitution party ID Authoriza tion(s) Blue [employer] Medicare Advantage [id number] Social History Type Description Quantity Date [...]
--- OUTSIDE RECORDS SUMMARY | 2023-05-10 06:07 | XMS_ITS | Continuity of Care Document ---
Author Name Unknown Organization [facility] Address [address] [address] [place] [address] Phone Care Team Providers Care Psychology Assistant Name Role Phone Unavailable Unavailable Unavailable Allergies, [...] on Encounter Offic/outpt E&m Estab Mod-hi 2 [facility], [address] [address], [place], [id number], [place] tel:[phone] [facility] GI Symptoms or Concerns (chief complaint) Pancreas cystGeneralized abdominal painRight ovarian cyst 2 No Information Referring Provider: Referral Self, USE FOR SELF REFERRALS. [facility], [address] [address], [place], [id number], [place] tel:[phone] [facility] Pancreas cyst Jan-0 [address] [facility], [facility] [address], [place], [id number], [place]. tel:[phone] [facility], [address] [address], [place], [id number], [place] tel:[phone] [facility] No Information [address] [facility], [facility] [address], [place], [place], [id number], [place]. tel:[phone] Referring Provider: Kandis Moore MD, [address] [facility] [address], [place], [address] . tel:[phone] [facility], [address] [address], [place], [id number], [place] tel:[phone] [facility] No Information 1 Oscar Melendez [address] [place] [address], [facility] [address], [place], [id number], [place]. tel:[phone] Family History Family Member Type Diagnosis Age [...] ional interface ; Source: Other Registry Novel [id number], injectable administered Note: [facility] bi-direct ional interface [...] Registry Payers Payer name Insurance type Covered republican ID Authoriza tion(s) Blue Cross Medicare Advantage [id number] [id number] Social History Type Description Quantity Date [...]
[2023-05-10] MEDS: LACTATED RINGERS 1000 ML 1,000 ML 100 ML IV (06:10)
[2023-05-10] MEDS: SODIUM CHLORIDE 0.9 % (FLUSH) 10 ML SYRINGE IVF (06:25)
[2023-05-10 06:31] VITALS: BP 139/67; PULSE 65; RESP 16; TEMP 37.2; O2SAT 96; BMI 24.8
--- NOTE | 2023-05-10 07:24 | W.PM.H&PU ---
History & Physical Update History & Physical Update H&P Reviewed and patient assessed: No changes noted
--- NOTE | 2023-05-10 07:24 | PM.GSPRC ---
Operative Note Date of procedure: 05/10/23 Pre-op diagnosis: 1. Symptomatic left inguinal hernia Post-op diagnosis: 1. Incarcerated left inguinal hernia containing small bowel. Type of Procedure: 1. Open left inguinal hernia repair with mesh. Indications: 83-year-old female was seen in clinic after she presented to emergency room with incarcerated left inguinal hernia. Patient had a known history of left inguinal hernia for at least 1 year. She was seen in the emergency room after her left inguinal bulge became painful and she was vomiting. By the time she came to the emergency room, her pain improved. An abdominal CT was obtained that showed an incarcerated hernia containing large intestine with no evidence of obstruction. Patient was discharged home. Patient states that she usually notices a small left inguinal bulge. She does not do heavy lifting. Her bowel movements are almost daily but she usually takes laxatives. On clinical exam in the left lower quadrant she had a moderately-sized inguinal bulge that was reducible. Patient did not have any pain with reduction. Given patient's clinical history and her physical exam, I recommended to proceed with an open left inguinal hernia repair. The procedure was discussed in detail. The risks associated procedure including infection, bleeding, injury to intra-abdominal organs, and hernia recurrence were all discussed with the patient, and she agreed to proceed. Procedure Description: After discussing the risks and benefits of the procedure, the patient signed informed consent.? The operative site was marked and the patient was brought to the operating room and placed on the operating table in supine position.? Care was taken to pad the patient's pressure points.?? The patient was then sedated by anesthesia.?? The operative site was then prepped and draped in the usual sterile fashion.? A time-out was then performed. Surgical site was prepped and draped in sterile fashion. Site of the incision was marked with a marking pen and local anesthetic was injected. An oblique incision was made just above and medial to left inguinal ligament. Subcutaneous tissue was dissected to external obliques. Preperitoneal fat was protruding through the external oblique and the external oblique layer was difficult to define. The soft tissues and muscle aponeurosis were weakened and stretched out. What was thought to be in external oblique was incised with Metzenbaum scissors and mosquito clamps were placed on the external oblique edges. Preperitoneal tissues and hernia sac and preperitoneal fat were all protruding through this external oblique layer. The inguinal floor was stretched out and nonexistent. Thin muscle tissue overlying the hernia sac was divided and retracted inferiorly. The hernia sac near the internal ring was identified and thickened inflamed fat was attached to the hernia sac. The hernia sac was entered with Metzenbaum scissors and small intestine was incarcerated in the hernia sac. The small intestine was then reduced after thin adhesions to the peritoneum were lysed with cautery. The thickened inflamed fat appeared to be part of the hernia sac. This was excised with a clamp and cautery. This was sent to pathology as left inguinal hernia sac fat. The rest of the hernia sac was then reduced from the soft tissues of the left groin. The hernia sac was dissected away from the soft tissues with cautery. The round ligament was identified and was thin. It was clamped proximally and distally with right angle clamp and a segment of round ligament was excised. The free ends were tied with Vicryl suture. The hernia sac was then excised with cautery and oversewn/closed with a running Vicryl suture. The peritoneum was very thin. Preperitoneal space was developed around the hernia sac and good space was seen for preperitoneal mesh placement. I then used 3D max Bard mesh and placed it into the preperitoneal space. It was secured to the external oblique with 3-0 Vicryl suture. The external oblique layer and fat was reapproximated over the mesh with interrupted Nurolon sutures to cover the mesh with [place] tissues. Additional local anesthetic was injected in subcutaneous fat and external oblique. Subcutaneous fat was then reapproximated in layers with 3-0 Vicryl suture. The dermis was closed with interrupted 3-0 Vicryl sutures. Skin incision was closed with 4-0 Monocryl subcuticular stitch. Steri strips and sterile dressing were applied over incision. All counts were correct at the end of the case. Patient tolerated this procedure well and was transferred to same-day surgery in stable condition. Findings: Severely weakened and nonexistent inguinal floor with direct hernia. Anesthesia: MAC and local Surgeon: Gui Woo MD Estimated blood loss (mL): 10 Additional Specimen Information: 1. Inflamed right inguinal hernia sac fat. Condition: stable Disposition: same day
[2023-05-10] MEDS: CEFAZOLIN 2 GM INJ IVP (07:30)
[2023-05-10] MEDS: BUPIVACAINE 0.25% 30 ML 20 ML INJECTION (07:39)
--- NOTE | 2023-05-10 07:39 | SUR.OPER ---
PATIENT QUESTIONS ANSWERED SATISFACTORILY PREOPERATIVELY. PATIENT BROUGHT TO OR #1 PER CART. Patient positioned supine on OR #1 bed. The perioperative team supported arms bilaterally on arm boards. Final approval of positioning by surgeon.
--- NOTE | 2023-05-10 07:41 | P.ANES_ITS ---
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
[2023-05-10 09:15] VITALS: BP 137/76; PULSE 65; RESP 16; TEMP 36.5; O2SAT 93
[2023-05-10 09:30] VITALS: BP 132/77; PULSE 66; RESP 16; O2SAT 96
[2023-05-10 09:45] VITALS: BP 135/74; PULSE 67; RESP 16; O2SAT 96
[2023-05-10 10:00] VITALS: BP 133/71; PULSE 62; RESP 16; O2SAT 95
== END 2023-05-10 10:26 | disposition home or self-care (01) ==
PROVIDERS: PCP Family Medicine; Visit Provider Surgery
PROC: (CPT 49507; principal; 2023-05-10 07:30)
DX: K40.30 Unilateral inguinal hernia, with obstruction, without gangrene, not specified as recurrent (principal)
CPT/HCPCS: 49507; 00830; 99100; C1781; J0330; J0665; J0690; J1100; J2405; J2704; J3010; J7120

== ENCOUNTER 2023-11-17 19:00 | Inpatient (IN) | payer MEDICARE, SELFPAY ==
[2023-11-17] VITALS (17 sets, daily range): BP systolic 128–190; BP diastolic 64–88; PULSE 67–88; RESP 16–20; TEMP 36.8–37.1; O2SAT 93–98; BMI 25.4; BMI 26.1
--- NOTE | 2023-11-17 19:15 | CRLHL7_ITS ---
For Patients: As a result of the Century Cures Act, medical imaging exams and procedure reports are released immediately into your electronic medical record. You may view this report before your referring provider. If you have questions, please contact your health care provider. Indication: Left leg heaviness Technique: Volumetric multidetector CT images of the head were obtained without the administration of low osmolar intravenous contrast. Comparison: None available Findings: There is no intra-axial or extra-axial fluid collection. There is no mass effect or midline shift. There is age-related cortical atrophy with mild sulcal widening and ex vacuo dilatation of the lateral ventricles. There are chronic small vessel disease changes in the subcortical and periventricular white matter without lost perez-white differentiation. The orbits and their contents are grossly within normal limits. The bony calvarium is grossly intact. The paranasal sinuses are clear. The mastoid air cells are well aerated. Impression: 1. Age-related changes of the brain without acute intracranial abnormality. A negative head report was sent to Dr. Nails at 7:36 p.m. November 17, 20[address] Please note that all CT scans at this facility use dose modulation, iterative reconstruction, and/or weight-based dosing when appropriate to reduce radiation dose to as low as reasonably achievable. Dictated by Wan Tan MD @ 11/17/2023 7:40:39 PM (Electronically Signed)
--- NOTE | 2023-11-17 19:17 | ED.NEUROSD ---
HPI - Neuro Symptoms/Deficit General Date Seen: 11/17/23 Chief Complaint: Neuro Symptoms/Altered Deficit Stated Complaint: stroke Time Seen by Provider: 11/17/23 19:04 Source: patient Mode of arrival: ambulatory Limitations: no limitations History of Present Illness HPI Narrative: Patient is an 83-year-old female presenting to the emergency department for weakness of her left leg. She states around 16:00 she got out of her chair realize she could barely move her left leg. This has never happened before. Symptoms are not getting better sure she called her daughter who brought her to the emergency department. A daughter initially also thought she noticed some slowed and slurred speech that has since resolved. Patient has no history of strokes. Does have hypertension. Read as normal she did not have symptoms before she sat down but is unsure how long she was sitting down for. She thinks maybe an hour but cannot say for certain. States all day she has been watching TV with intermittently getting up to walk around. She lives alone and he is is able to move around department normally without any assistance. Denies headache, vision changes, numbness, upper extremity weakness, abdominal pain, chest pain, shortness of breath. No other concerns noted. Related Data Home Medications ?Medication ?Instructions ?Recorded ?Confirmed alendronate 70 mg tablet 70 mg PO Q7D 04/06/23 11/17/23 amlodipine 5 mg tablet 5 mg PO DAILY 04/06/23 11/17/23 aspirin 81 mg tablet 81 mg PO DAILY 05/05/23 11/17/23 calcium carbonate 300 mg PO DAILY 05/05/23 11/17/23 cholecalciferol (vitamin D3) 1 tab PO DAILY 05/05/23 11/17/23 coenzyme Q10 100 mg capsule 100 mg PO DAILY 05/05/23 11/17/23 docusate sodium 100 mg capsule 100 mg PO DAILY 05/05/23 11/17/23 (Colace) losartan 100 mg tablet 100 mg PO DAILY 05/05/23 11/17/23 Allergies Allergy/AdvReac Type Severity Reaction Status Date / Time phenytoin Allergy Severe Seizure Verified 11/17/23 19:32 Review of Systems Status of ROS: Reports: 10 or more systems reviewed and unremarkable except as noted in History and below [facility] Surgical History History of lumpectomy of right breast ?Z98.890 - Other specified postprocedural states (ICD-10) Hx of tonsillectomy ?Z90.89 - Acquired absence of other organs (ICD-10) History of open reduction and internal fixation (ORIF) procedure ?Z98.890 - Other specified postprocedural states (ICD-10) History of left knee replacement ?Z96.652 - Presence of left artificial knee joint (ICD-10) History of right hip replacement ?Z96.641 - Presence of right artificial hip joint (ICD-10) Hx of hysterectomy ?Z90.710 - Acquired absence of both cervix and uterus (ICD-10) Hx of bilateral cataract extraction ?Z98.41 - Cataract extraction status, right eye (ICD-10) ?Z98.42 - Cataract extraction status, left eye (ICD-10) History of appendectomy ?Z90.49 - Acquired absence of other specified parts of digestive tract (ICD-10) History of radiofrequency ablation (RFA) procedure for cardiac arrhythmia ?Z98.890 - Other specified postprocedural states (ICD-10) S/P hysterectomy ?Z90.710 - Acquired absence of both cervix and uterus (ICD-10) Social History Narrative: Patient lives independently. 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 Smoking Status: Never smoker Do you use any of these nicotine containing products: None How often do you have a drink containing alcohol: never AUDIT-C Alcohol total score: 0 Non-prescribed substance use: denies use Caffeine: Yes Are you using contraception or practicing any form of control: No service: No Exam Narrative: Exam Narrative: Const: Well-nourished, Well-developed, in for distress Eyes: PERRL, no conjunctival injection, and symmetrical lids HENT: Atraumatic external nose and ears. Moist mucous membranes. Neck: Symmetric, trachea midline, No thyromegaly. CVS: RRR, No murmurs or gallops. Peripheral pulses 2+ and equal in all extremities RESP: Unlabored respiratory effort. Clear to auscultation bilaterally. GI: Nontender/Nondistended, No rebound or guarding. MSK:Extremities w/o deformity, Normal Active ROM Skin: Warm, Dry. No rashes or lesions. Neuro: Normal Muscle tone, Cranial nerves 2-12 grossly intact, normal fxtl-nt-hcey, normal [id number], difficulty moving left leg when walking, normal strength 5/5 upper extremities bilaterally, initially strength 5/5 lower extremities bilaterally. We then checked again later or when the head of her bed was positioned higher in then she noticed weakness in her left leg. This resolved again we put the head back down. normal sensation upper and lower extremities bilaterally, normal rapid alternating movements. Psych: Awake, Alert, & Oriented x3. Appropriate mood and affect. Const: Vital Signs, click to edit/add: Vital Signs - 24 hr 11/17/23 19:07 11/17/23 19:24 11/17/23 19:29 Temperature 98.2 F Pulse Rate 74 Pulse Rate [Right Pulse Oximeter] 80 Respiratory Rate 18 20 Blood Pressure 136/79 Blood Pressure [Ri ght Upper Arm] 190/88 H Pulse Oximetry 95 96 98 Oxygen Delivery Me thod Room Air 11/17/23 19:31 11/17/23 19:52 11/17/23 20:01 Temperature Pulse Rate 69 74 78 Pulse Rate [Right Pulse Oximeter] Respiratory Rate 20 20 20 Blood Pressure 150/77 H 159/72 H 152/69 H Blood Pressure [Ri ght Upper Arm] Pulse Oximetry 95 97 97 Oxygen Delivery Me thod 11/17/23 20:12 11/17/23 20:22 11/17/23 20:31 Temperature Pulse Rate 72 74 75 Pulse Rate [Right Pulse Oximeter] Respiratory Rate 20 20 20 Blood Pressure 149/79 H 138/66 128/75 Blood Pressure [Ri ght Upper Arm] Pulse Oximetry 94 93 94 Oxygen Delivery Me thod Course Vital Signs Vital signs: Initial Vital Signs Temperature 98.2 F 11/17/23 19:07 Temperature Source Temporal Artery Scan 11/17/23 19:07 Pulse Rate 80 11/17/23 19:07 Respiratory Rate 18 11/17/23 19:07 Blood Pressure 190/88 H 11/17/23 19:07 Blood Pressure Mean 122 H 11/17/23 19:07 Blood Pressure Position Sitting 11/17/23 19:07 Pulse Oximetry 95 11/17/23 19:07 Oxygen Delivery Method Room Air 11/17/23 19:07 Vital Signs Temperature 98.2 F 11/17/23 19:07 Pulse Rate 80 11/17/23 19:07 Respiratory Rate 18 11/17/23 19:07 Blood Pressure 190/88 H 11/17/23 19:07 Pulse Oximetry 95 11/17/23 19:07 Oxygen Delivery Method Room Air 11/17/23 19:07 Temperature 98.2 F 11/17/23 19:07 Pulse Rate 75 11/17/23 20:31 Respiratory Rate 20 11/17/23 20:31 Blood Pressure 128/75 11/17/23 20:31 Pulse Oximetry 94 11/17/23 20:31 Oxygen Delivery Method Room Air 11/17/23 19:07 Medications Administered Medications: Discontinued Medications Generic Name Dose Route Start Last Admin Trade Name Aracelis PRN Reason Stop Dose Admin Aspirin 324 mg 11/17/23 19:28 11/17/23 19:32 Aspirin 81 Mg Tab.Chew PO 11/17/23 19:29 324 mg ONCE ONE Administration MDM - Neuro Symptoms/Deficit MDM Narrative Medical decision making narrative: Patient is an 83-year-old female presenting for concerns of a stroke. I cannot say definitively what time she was last normal so as precautionary I will call a code stroke. I spoke to Dr. Nails explained to her the situation. This time she states due to the unconfirmed last known well in the relatively mild an unconventional symptoms she is not a candidate for fibrinolytic. CT of the head was immediately ordered though and this was done showing no concerning abnormalities as reviewed by myself and the radiologist. Immediate the me also did a point of care glucose which was 131. Pt care troponin was 0.01 and point of care creatinine was 1.1. Also ordered a CBC, COVID/flu/RSV, magnesium, urinalysis, CMP. Aspirin given. On my exam I did give her NIH stroke scale 1 due to the left leg weakness seen with positional change and when trying to ambulate Patient's CBC shows no concerning abnormalities. CMP shows no concerning abnormalities. Urinalysis shows positive for nitrite but she is not having any urinary symptoms. COVID/flu/RSV is negative. CTA was ordered and shows no acute abnormalities. The are some stenosis areas of the M1 and M2 segments of the right but no occlusions. EKG shows no concerning abnormalities. Head this time patient will be admitted for MRI per Neurology recommendation. Patient is agreeable to this plan. Lab Data Labs: Lab Results 11/17/23 11/17/23 11/17/23 Range/Units 19:19 19:20 19:27 WBC (4.50-11.00) K/uL RBC (4.00-5.20) m/uL Hgb (12.0-16.0) gm/dL Hct (33.0-51.0) % MCV (80-100) fL MCH (26-34) pg MCHC (32-36) gm/dL RDW Coeff of Guillermo (11.5-15.5) % Plt Count (140-440) K/uL Neut % (Auto) (42.0-72.0) % Lymph % (Auto) (20-44) % [place] % (Auto) (0.0-11.0) % Eos % (Auto) (0.0-7.0) % Baso % (Auto) (0.0-3.0) % Neut # (Auto) (1.7-7.0) K/uL Lymph # (Auto) (0.90-2.90) K/uL [place] # (Auto) (0.00-0.90) K/UL Eos # (Auto) (0.00-0.50) K/uL Baso # (Auto) (0.00-0.30) K/uL Abs Immat Gran (auto) (0.00-0.30) K/uL Imm/Tot Granulo (auto) % Sodium (135-149) mmol/L Potassium (3.6-5.1) mmol/L Chloride (96-114) mmol/L Carbon Dioxide (20-32) mmol/L Anion Gap (7-15) mEq/L BUN (7-30) mg/dL Creatinine (0.5-1.5) mg/dL Estimated Creat Clear Estimated GFR ml/min Glucose (60-115) mg/dL Calcium (8.4-10.6) mg/dL Magnesium (1.5-2.6) mg/dL Total Bilirubin (0.1-1.5) mg/dL AST (12-35) U/L ALT (4-35) U/L Alkaline Phosphatase (40-150) U/L Total Protein (6.0-8.3) g/dL Albumin (3.3-5.0) g/dL Urine Color Yellow (Yellow) Urine Appearance Slightly Cloudy A (Clear) Urine pH 7.5 (5.0-8.5) Ur Specific [place] 1.015 (1.000-1.030) Urine Protein Negative (Negative) Urine Glucose (UA) Negative (Negative) Urine Ketones Negative (Negative) Urine Blood Negative (Negative) Urine Nitrite Positive A (Negative) Urine Bilirubin Negative (Negative) Urine Urobilinogen 0.2 (0.2-1.0) Ur Leukocyte Esterase Negative (Negative) Urine RBC 0-2 (0-2) Urine WBC 2-5 (0-5) Ur Squamous Epith Cells Few (None-Few) Urine Bacteria Many A (None) SARS-CoV-2 (PCR) (Negative) Influenza Type A (PCR) (Negative) Influenza Type B (PCR) (Negative) RSV (PCR) (Negative) POC Glucose 131 H (60-115) mg/dl POC Creatinine 1.1 (0.6-1.3) mg/dl POC Troponin I 0.01 (0.01-0.04) ng/ml 11/17/23 Range/Units 19:30 WBC 3.87 L (4.50-11.00) K/uL RBC 4.07 (4.00-5.20) m/uL Hgb 11.3 L (12.0-16.0) gm/dL Hct 34.8 (33.0-51.0) % MCV 86 (80-100) fL MCH 28 (26-34) pg MCHC 33 (32-36) gm/dL RDW Coeff of Guillermo 13.9 (11.5-15.5) % Plt Count 233 (140-440) K/uL Neut % (Auto) 57.1 (42.0-72.0) % Lymph % (Auto) 25.3 (20-44) % [place] % (Auto) 11.4 H (0.0-11.0) % Eos % (Auto) 4.9 (0.0-7.0) % Baso % (Auto) 1.0 (0.0-3.0) % Neut # (Auto) 2.20 (1.7-7.0) K/uL Lymph # (Auto) 1.00 (0.90-2.90) K/uL [place] # (Auto) 0.40 (0.00-0.90) K/UL Eos # (Auto) 0.20 (0.00-0.50) K/uL Baso # (Auto) 0.00 (0.00-0.30) K/uL Abs Immat Gran (auto) 0.00 (0.00-0.30) K/uL Imm/Tot Granulo (auto) 0.3 % Sodium 132 L (135-149) mmol/L Potassium 4.1 (3.6-5.1) mmol/L Chloride 100 (96-114) mmol/L Carbon Dioxide 23 (20-32) mmol/L Anion Gap 9 (7-15) mEq/L BUN 21 (7-30) mg/dL Creatinine 0.9 (0.5-1.5) mg/dL Estimated Creat Clear 37.11 Estimated GFR 63 ml/min Glucose 134 H (60-115) mg/dL Calcium 9.5 (8.4-10.6) mg/dL Magnesium 2.3 (1.5-2.6) mg/dL Total Bilirubin 0.4 (0.1-1.5) mg/dL AST 26 (12-35) U/L ALT 17 (4-35) U/L Alkaline Phosphatase 58 (40-150) U/L Total Protein 7.4 (6.0-8.3) g/dL Albumin 4.9 (3.3-5.0) g/dL Urine Color (Yellow) Urine Appearance (Clear) Urine pH (5.0-8.5) Ur Specific [place] (1.000-1.030) Urine Protein (Negative) Urine Glucose (UA) (Negative) Urine Ketones (Negative) Urine Blood (Negative) Urine Nitrite (Negative) Urine Bilirubin (Negative) Urine Urobilinogen (0.2-1.0) Ur Leukocyte Esterase (Negative) Urine RBC (0-2) Urine WBC (0-5) Ur Squamous Epith Cells (None-Few) Urine Bacteria (None) SARS-CoV-2 (PCR) Negative SARS-CoV-2 (Negative) Influenza Type A (PCR) Negative PCR FLU A (Negative) Influenza Type B (PCR) Negative PCR FLU B (Negative) RSV (PCR) Negative PCR RSV (Negative) POC Glucose (60-115) mg/dl POC Creatinine (0.6-1.3) mg/dl POC Troponin I (0.01-0.04) ng/ml Imaging Data CTA head and neck: Attestation: I have reviewed the pertinent imaging results. Radiologist's impression: Preliminary Report: CTA head: 1. No large vessel occlusion. 2. Mild multifocal stenosis of the M1 segments and moderate multifocal stenosis of the right inferior M2 segment. 3. No intracranial aneurysm or vascular malformation. CTA neck: 1. No traumatic arterial injury or dissection. 2. Atherosclerotic calcification at the carotid bifurcations with <50% stenosis by NASCET-like criteria. 3. Short anatomic variant retropharyngeal course of the ICAs. Read by:?Olman Grace MD @11/17/2023 7:56:[address] scan - head: Attestation: I have reviewed the pertinent imaging results. Radiologist's impression: 1. Age-related changes of the brain without acute intracranial abnormality. A negative head report was sent to Dr. Nails at 7:36 p.m. November 17, 2023 Please note that all CT scans at this facility use dose modulation, iterative reconstruction, and/or weight-based dosing when appropriate to reduce radiation dose to as low as reasonably achievable. Dictated by Wan Tan MD @ 11/17/2023 7:40:39 PM ECG Data Attestation: I personally reviewed and interpreted this ECG as follows: Prior ECG tracings: available for review Interpretation: Normal sinus rhythm with a rate of 68 beats per minute, normal intervals, normal axis, no ST or T-wave abnormalities. Appears similar to previous EKG on file. Discharge Plan Discharge Clinical Impression: Left leg weakness Patient Disposition: Admitted As Observation Condition: Stable
[2023-11-17 19:20] LABS: Glucose, Point-of-Care* 131 mg/dl (60-115)
--- NOTE | 2023-11-17 19:28 | CRLHL7_ITS ---
For Patients: As a result of the Century Cures Act, medical imaging exams and procedure reports are released immediately into your electronic medical record. You may view this report before your referring provider. If you have questions, please contact your health care provider. DATE: 11/17/2023 CLINICAL HISTORY: Patient with focal neurological deficits. TECHNIQUE: Standard helical CT image acquisition through the intracranial circulation following intravenous administration of contrast material with bolus tracking. 2D and 3D MIP images for post-processing were performed and interpreted on an independent workstation and 3D images were permanently archived. COMPARISON: CT same day. FINDINGS: There is no cerebral aneurysm or large vessel occlusion. There is intracranial atherosclerosis with focal severe right M2 and right P3 segment stenoses, as well as multifocal moderate stenoses in the right M1 and right P1 segments. The right vertebral artery is dominant. The basilar artery is patent and appears normal. The visualized venous structures are patent. IMPRESSION: 1. No cerebral aneurysm or large vessel occlusion. 2. Intracranial atherosclerosis with focal severe right M2 and right P3 segment stenoses, as well as multifocal moderate stenoses in the right M1 and right P1 segments. Please note that all CT scans at this facility use dose modulation, iterative reconstruction, and/or weight-based dosing when appropriate to reduce radiation dose to as low as reasonably achievable. Dictated by Lorraine Santana MD @ 11/17/2023 9:29:45 PM (Electronically Signed)
--- NOTE | 2023-11-17 19:28 | CRLHL7_ITS ---
For Patients: As a result of the Century Cures Act, medical imaging exams and procedure reports are released immediately into your electronic medical record. You may view this report before your referring provider. If you have questions, please contact your health care provider. DATE: 11/17/2023 CLINICAL HISTORY: Patient with focal neurological deficits. TECHNIQUE: Standard helical CT image acquisition of the neck up to the skull base after bolus intravenous contrast enhancement. 2D and 3D MIP images for post-processing were performed and interpreted on an independent workstation and 3D images were permanently archived. COMPARISON: None. FINDINGS: The origins of the great vessels from the aortic arch are patent. The origin of the right vertebral artery is patent. The origin of the left vertebral artery is patent. The common carotid arteries are patent. There is a mild (<50%) stenosis at the origin of the right internal carotid artery by NASCET criteria. This is caused by calcified plaque with a <2mm residual lumen. There is plaque without stenosis at the origin of the left internal carotid artery by NASCET criteria. The rest of the cervical segments of the internal carotid arteries are patent up to the skull base. The right vertebral artery is dominant. The cervical segments of the vertebral arteries are patent up to the skull base. The visualized lung apices are unremarkable. The thyroid gland is unremarkable. The soft tissues of the neck are unremarkable. There are degenerative changes in the cervical spine. IMPRESSION: Mild (<50%) stenosis at the origin of the right internal carotid artery by NASCET criteria. This is caused by calcified plaque with a <2mm residual lumen. Please note that all CT scans at this facility use dose modulation, iterative reconstruction, and/or weight-based dosing when appropriate to reduce radiation dose to as low as reasonably achievable. Dictated by Lorraine Santana MD @ 11/17/2023 9:25:17 PM (Electronically Signed)
--- OUTSIDE RECORDS SUMMARY | 2023-11-17 19:28 | XMS_ITS | Continuity of Care Document ---
Author Organization [facility] Address [address] [address] [place] [address] Phone Care Team Providers Care Cider Maker Name Role Phone Unavailable Unavailable Unavailable Allergies, [...] on Encounter Offic/outpt E&m Estab Mod-hi 2 [facility], [address] [address], [place], [id number], [place] tel:[phone] [facility] GI Symptoms or Concerns (chief complaint) Pancreas cystGeneralized abdominal painRight ovarian cyst 2 No Information Referring Provider: Referral Self, USE FOR SELF REFERRALS. [facility], [address] [address], [place], [id number], [place] tel:[phone] [facility] Pancreas cyst Jan-0 1 Oscar Melendez [address] [facility] [facility] [address], [place], [id number], [place]. tel:[phone] [facility], [address] [address], [place], [id number], [place] tel:[phone] [facility] No Information 1 Oscar Melendez [address] [facility] [facility] [address], [place], [place], [id number], [place]. tel:[phone] Referring Provider: Kandis Moore MD, [address] [facility] [address], [place], [address] . tel:[phone] [facility], [address] [address], [place], [id number], [place] tel:[phone] [facility] No Information 1 Oscar Melendez [address] [facility] [facility] [address], [place], [id number], [place]. tel:[phone] Family History Family Member Type Diagnosis Age [...] ional interface ; Source: Other Registry Novel [id number], injectable administered Note: [facility] bi-direct ional interface [...] Payer name Insurance type Covered republican ID Authorchua tiálvaro(s) [employer] Medicare Advantage [id number] Social History Type Description Quantity Date [...]
--- OUTSIDE RECORDS SUMMARY | 2023-11-17 19:28 | XMS_ITS | Clinical Summary ---
Author Organization [facility] Address [address] [place] [id number] Care Team Providers Care Interpreter Deaf Name Role Phone MihaelaverafigueroaAngeline Donavan HOLLOWAY Primary Care Provider [phone] Allergies Active Allergy Reactions Criticality Noted Date Comments Phenytoin 10/17/2002 rash with dilantin Medications Medication Sig Dispensed Refills Start Date End Date Status CALCIUM /VITAMIN D TABS OR 1 TABLET DAILY 10/17/2002 Active ASPIRIN 81 MG OR TABS 1 tab po QD (Once per day) 10/17/2002 Active VITAMIN D 1000 UNIT OR CAPS 1 CAPSULE DAILY Active amLODIPine (NORVASC) 5 MG tablet Take 5 mg by mouth 02/28/2020 Active estradiol (ESTRACE) 0.1 MG/GM vaginal cream 06/12/2020 Active losartan (COZAAR) 100 MG tablet Take 100 mg by mouth daily 02/28/2020 Active omeprazole (PRILOSEC OTC) 20 MG EC tablet Take 20 mg by mouth 11/12/2020 Active ciprofloxacin (CIPRO) 250 MG tabletIndications:Ozuna creas cyst Take 1 tablet (250 mg) by mouth 2 times daily 10 tablet 01/22/2021 Active Active Problems Problem Noted Date Diagnosed Date 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 Provider to review Osteoporosis 06/21/2003 Overview: Problem list name updated by automated process. Provider to review Essential hypertension, benign Resolved Problems Problem Noted Date Diagnosed Date Resolved Date Pain in joint, lower leg 03/22/200703/2007 Pain in joint, lower leg 03/17/200706/2006 Immunizations Name Administration Dates Next Due Influenza (IIV3) PF 02/05/2009,03/11/2005,2003,04/16/2003 TD,PF 7+ (Tenivac) 01/22/2005,06/14/1994 Family History Medical History Relation Comments Diabetes Brother 1 Circulatory Brother 2 carotid artery s urgery Heart Disease Father [place] Circulatory Mother hypotension Relation Status Comments Brother 1 Brother 2 Father Mother Social History Tobacco Use Types Packs/Day Years Used Date Smoking Tobacco: Former Cigarettes Q uit: 01/21/1979 Smokeless Tobacco: Never Alcohol Use Standard Drinks/Week Comments Never 0 (1 standard drink = 0.6 oz pur e alcohol) Adolescent Education Answer Date Record ed Getting School Help Needed Not on file 02/20 Sex and Gender Information Value Date Recorded Sex Assigned at Not on file Gender Identity Not on file Sexual Orientation Not on file Last Filed Vital Signs Vital Sign Reading Time Taken Comments Blood Pressure 146/64 01/22/2021 3:00 PM CDT Pulse 66 01/22/2021 2:30 PM CDT Temperature 36.3 ??C (97.3 ??F) 01/22/2021 3:00 PM CD T Respiratory Rate 16 01/22/2021 3:00 PM CDT Oxygen Saturation 93% 01/22/2021 3:00 PM CDT Inhaled Oxygen Concentration - - Weight 54.9 kg (121 lb) 01/22/2021 11:13 AM CDT Height 149.9 cm (4' 11) 01/22/2021 11:13 AM CDT Body Mass Index 24.44 01/22/2021 11:13 AM CDT Plan of Treatment Health Maintenance Due Date Last Done Comments ADVANCE CARE PLANNING 1940 ANNUAL REVIEW OF HM ORDERS 1940 CT COLONOGRAPHY 1940 FLEX SIG 1940 sDNA (Cologuard) 1940 ZOSTER IMMUNIZATION (1 of 2) 01/17/1988 RSV VACCINE ( & 60+) (1 - 1-dose 60+ series) 1998 FALL RISK ASSESSMENT 2003 DTAP/TDAP/TD IMMUNIZATION (1 - Tdap) 01/23/2005 01/22/2005, 01/22/2005, 06/14/1994 Pneumococcal Vaccine: 65+ Years (2 of 2 - PCV) 05/21/2005 05/21/2004 DEXA 03/01/2008 03/01/2005, 08/16/2002 LIPID 07/31/2009 07/31/2008, 09/15, 02/10/2007, Additional history exists MAMMO SCREENING 10/01/2009 10/01/2008, 10/2008, 09/28/2006, Additional history exists COLONOSCOPY 07/19/2012 07/19/2002 MEDICARE ANNUAL WELLNESS VISIT 02/27/2021 02/28/2020 COLORECTAL CANCER SCREENING 11/05/2021 FIT 11/05/2021 11/05/2020, 05/04/2018 COVID-19 Vaccine ( season) 2023 PHQ-2 (once per calendar year) 2023 INFLUENZA VACCINE (Season Ended) 2024 01/01/2016, 04/08/2015, 04/17/2014, Additional history exists HPV IMMUNIZATION Aged Out No longer e ligible based on patient's age to complete this topic IPV IMMUNIZATION Aged Out No longer e ligible based on patient's age to complete this topic MENINGITIS IMMUNIZATION Aged Out No l onger eligible based on patient's age to complete this topic RSV MONOCLONAL ANTIBODY Aged Out No l onger eligible based on patient's age to complete this topic Procedures Procedure Name Priority Date/Time Associated Diagnosis Comments C DIAGNOSTIC MAMMO DIGITAL LEFT, INCL CAD WHEN PERF Routine 10/01/2008 10:20 AM CDT CL AFF A.M.A. LIPID PANEL Routine 07/31/2008 11:55 AM CDT Other and Unspecified Hyperlipidemia C DEXA, BONE DENSITY, AXIAL SKEL Routine 03/01/2005 4:10 PM CDT OSTEOPOROSIS NOS COLONOSCOPY Routine 07/19/2002 DIAGNOSIS NOT YET DEFINED from Last 3 Months or Most Recently Relevant to Health Maintenance Results * DIAGNOSTIC MAMMO DIGITAL LEFT (10/01/2008 10:20 AM CDT) Anatomical Region Laterality Modality Other 10/01/2008 10:2 0 AM CDT Impressions 10/01/2008 10:35 AM CDT DIAGNOSTIC MAMMOGRAM LEFT DIGITAL w/CAD; ULTRASOUND LEFT BREAST October 01, 2008 10:20:00 AM HISTORY/COMPARISON: ??Left breast nodule. [facility] call back. 09/18/2008, 09/28/2006 FINDINGS: Suggestive density in the 12:00 position of the left breast on the screening mammogram is less prominent on today's diagnostic exam. There is a small nodular density in this area which is shown to be a simple cyst on ultrasound. IMPRESSION: BI-RADS 2, benign findings. Brii Laughlin MD [facility] I[facility] * A.M.A. LIPID PANEL (07/31/2008 11:55 AM CDT) Cholesterol 193 0 - 200 mg/dL [facility] Comment: LDL Cholesterol is the primary guide to therapy: LDL-cholesterol goal in high risk patients is <100 mg/dL and in very high risk patients is <70 mg/dL. The NCEP recommends further evaluation of: patients with cholesterol <200 mg/dL if additional risk factors are present, cholesterol >240 mg/dL, triglycerides >150 mg/dL, or HDL <40 mg/dL. Triglycerides 94 0 - 150 mg/dL [facility] HDL Cholesterol 70 50 - 110 mg/dL [facility] LDL Cholesterol Calculated 104 0 - 129 mg/dL [facility] Comment: LDL Cholesterol is the primary guide to therapy: LDL-cholesterol goal in high risk patients is <100 mg/dL and in very high risk patients is <70 mg/dL. VLDL-Cholesterol 19 0 - 30 mg/dL [facility] Cholesterol/HDL Ratio 2.8 0.0 - 5.0 [facility] 07/31/2008 11:5 5 AM CDT 07/31/2008 12:00 PM CDT Brii Laughlin MD LABORATORY [facility] * (ABNORMAL) DEXA, BONE DENSITY, AXIAL SKEL (03/01/2005 4:10 PM CDT) Anatomical Region Laterality Modality Bone Mineral Den sity Impressions 03/01/2005 4:10 PM CDT BONE DENSITOMETRY [facility] February 18, 2005 PATIENT: ??Sarah Alberto CHART: [id number] : ??1940 AGE: ??65 year old SEX: ??female REFERRING PHYSICIAN: ??Brii Laughlin M.D., ?? PROCEDURE: ??Bone density scanning was performed using DEXA technology performed on a [employer] Scanner. ??Reporting is completed in the form of a T-score. ??The T-score represents the standard deviation from peak bone mass based on a young healthy adult. Conveyor Belt Repairer performing scan: ??Brii Cohen REFERENCE T-SCORES: ? Normal ? Greater than -1.0 ? Osteopenia ?-1.0 to -2.5 ? Osteoporosis ?? Less than -2.5 ? RISK FACTORS: ??Post-menopausal, Follow-up osteopenia, wrist fracture ??(details not noted). CURRENT TREATMENT: ??Calcium with Vitamin D, Fosamax FINDINGS: ? Lumbar Spine L1-L4: ??T-score -2.2 ? Left Femoral Neck: ??T-score -2.6 ? Right Total Hip: ??T-score -2.2 ? Comparison is performed to previous DEXA performed on a [employer] Scanner on 10/23/1999. Electronically filed by Brii Cohen ??02/18/2005 ??2:06 PM In the interim, allowing for standardization calculations, there is suggestion of no significant change of the lumbar spine, and no significant change of the femoral neck. IMPRESSION: Osteoporosis Degenerative lumbar changes Follow up can be considered within three years. For patients eligible for Medicare, routine testing is allowed once every two years. The testing frequency can be increased to one year for patients who have rapidly progressing disease, those who are receiving or discontinuing medical therapy to restore bone mass, or have additional risk factors. Brii Laughlin M.D. Electronically signed Brii Laughlin MD [facility] * COLONOSCOPY (07/19/2002) Impressions Stacey Lee - 07/19/2002 00:00 ??Operative Report-[facility] ??FLACO CABAN () [Signed: 19:27] ??[Entered: interfaces, interfaces (FV Interface) 19:27] ?? : ??36 1st ASS'T: 2nd ASS'T: PRE-OPERATIVE DIAGNOSIS: POST-OPERATIVE DIAGNOSIS: OPERATION: ??Colonoscopy. INDICATION: ??This is a 62 year old who was referred for screening colonoscopy. ??She is in good health. ??PHYSICAL EXAM: ??Blood pressure is 133/72, pulse was 71. ??Heart is normal. ??Lungs are clear. PROCEDURE: ??The patient was explained the risks, benefits and alternatives and appeared to understand. ??She was administered 100 micrograms of Fentanyl, 2 mg of Versed, 0.6 of Atropine. ??The Olympic colonoscope was introduced in the rectum and easily passed to the cecum. ??The cecum was identified by the ileocecal valve, the appendiceal orifice. ??Prep was good. ??Colonoscopy thought to be adequate and complete, colonoscope was slowly withdrawn. ??There were no masses, polyps or colitis identified. ??The colonoscope was withdrawn from the patient. ??The patient tolerated the procedure well. ??There were no apparent complications. IMPRESSION: 1. ??Normal colonoscopy. PLAN: ??The patient should have repeat colonoscopy in ten years. [id number] _ FLACO CABAN MD MT: Document: [id number] Electronically filed by Stacey Lee ??08/11/2006 ??8:44 AM Brii Laughlin MD PROCEDURES from Last 3 Months or Most Recently Relevant to Health Maintenance Care Teams Interpreter Deaf Relationship Specialty [place] [address] [place], [place] [id number] PCP - General Family Medicine 12/31/20
--- OUTSIDE RECORDS SUMMARY | 2023-11-17 19:28 | XMS_ITS | Clinical Summary ---
Author Organization [employer] [facility] Address [place], [place] [address] Care Team Providers Care Garment Presser Name Role Phone Angeline Sim Primary Care Provider [phone] Monik Sotelo MD Unavailable Denise Cisse NP Unavailable Allergies Active Allergy Reactions Criticality Noted Date Comments Phenytoin Rash,Seizures High 03/15/2012 Medications Medication Sig Dispensed Refills Start Date End Date Status aspirin enteric coated 81 mg tablet Take 1 tablet by mouth once daily with a meal. 0 01/13/2012 Active Cholecalciferol, Vitamin D3, (VITAMIN D-3) 2,000 unit tablet Take 1 tablet by mouth once daily. 0 11/07/2015 Active medication order composerIndications :Venous stasis Bilateral compression stockings - knee length 30-40mmHg Diagnosis: venous stasis 2 Units 11/14/2017 Active calcium carbonate (CALTRATE) 600 mg calcium (1,500 mg) tablet Take 1 tablet by mouth one time for 1 dose. 1 tablet 09/07/2018 Active hydrocortisone 2.5% creamIndications:De rmatitis Apply topically to affected area(s) 2 times daily. 28 g 09/21/2018 Active Blood Pressure Monitor (BLOOD PRESSURE KIT)Indications:Ess ential hypertension Diagnosis: hypertension Use as directed 1 Device 02/28/2020 Active acetaminophen (TYLENOL EXTRA STRGTH) 500 mg tablet Take by mouth two times daily. 05/11/2022 Active docusate (COLACE) 100 mg capsule Take 1 Capsule by mouth once daily. 05/11/2022 Active coenzyme q10 100 mg cap Take by mouth. 05/11/2022 Active estradioL (ESTRACE) 0.01% (0.1 mg/g) vaginal creamIndications:At rophic vaginitis INSERT INTO THE VAGINA AT BEDTIME. INSERT 2 GRAMS VAGINALLY AT BEDTIME FOR 1 WEEK, THEN 0.5 GRAM TWICE WEEKLY AT BEDTIME FOR 1 TO 2 MONTHS 42.5 g 1 07/28/2022 Active prednisoLONE acetate 1% ophthalmic (ECONOPRED PLUS, PRED FORTE, OMNIPRED) suspensionIndicatio ns:Nuclear sclerotic cataract of both eyes START DROPS IN AFFECTED EYE AFTER SURGERY, LEFT EYE 11/11/2022 RIGHT EYE 11/25/2022 . ONE DROP FOUR TIMES A DAY FOR THREE WEEKS. 5 mL 2 11/22/2022 Active losartan (COZAAR) 100 mg tabletIndications:E ssential hypertension Take 1 Tablet (100 mg) by mouth once daily. 90 Tablet 3 12/09/2022 Active alendronate (FOSAMAX) 70 mg tabletIndications:A ge-related osteoporosis without current pathological fracture Take 1 Tablet (70 mg) by mouth once a week in the morning. Take on empty stomach with full glass of water. Do not lie down for 1 hr. 12 Tablet 4 12/27/2022 Active amLODIPine (NORVASC) 5 mg tabletIndications:E ssential hypertension Take 1 Tablet (5 mg) by mouth once daily. 90 Tablet 3 04/28/2023 Active Active Problems Problem Noted Date Diagnosed Date Age-related osteoporosis wit hout current pathological fracture 12/24/2022 Overview: DEXA 12/2015. Recommend initiating Fosamax with hip FRAX 4.7. Total FRAX 19.6. T- score spine -2.1, T-score LFN -1.7. DEXA 05/18/18: T-scores AP: -1.7, LFN -2.1. Total FRAX 23.7. Hip FRAX 6.7% Recommend starting Fosamax. Patient declines. Repeat in 3-5 years. DEXA 12/22/22: T-scores AP: -2.1, LFN -2.5. advised starting pharmacotherapy. Cataract 11/11/2022 Paroxysmal SVT (supraventricular tachycardia) Other secondary neuroendocrine tumors 06/10/2022 Chronic diastolic heart failure 01/05/2021 Normochromic anemia 04/01/2020 Grade I diastolic dysfunction 08/23/2018 Pancreatic mass 05/19/2018 Overview: 11mm incidental mass on CT. Perform MRI abdomen/pelvis in 1 year (05/2019). Pulmonary nodules 05/18/2018 Overview: Repeat chest CT in 12 months (10/2021). 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 Uterine prolapse 04/30/2015 Overview: Cystocele and urethral insufficiency LVH (left ventricular hypertrophy) 04/30/2015 SI joint arthritis 04/30/2015 VALENTINA-inhibitor cough 04/30/2015 Myalgia 04/30/2015 Vitamin D deficiency 04/10/2015 Chronic kidney disease, stage III (moderate) Abnormal glucose 04/10/2015 Postoperative anemia due to acute blood loss 09/2012 Osteoarthritis of hip 05/17/2012 Essential hypertension Hypercholesteremia Resolved Problems Problem Noted Date Diagnosed Date Resolved Date Sustained SVT 07/29/2017 01/05/2021 Osteopenia of multiple sites 01/14/2016 12/24/2022 Overview: DEXA 12/2015. Recommend initiating Fosamax with hip FRAX 4.7. Total FRAX 19.6. T- score spine -2.1, T-score LFN -1.7. DEXA 05/18/18: T-scores AP: -1.7, LFN -2.1. Total FRAX 23.7. Hip FRAX 6.7% Recommend starting Fosamax. Patient declines. Repeat in 3-5 years. Immunizations Name Administration Dates Next Due Influenza A (H1N1), Inactivated (Age >=3 Years) 05/01/2012 Influenza, High-dose Inactivated 01/01/2016,03/17 Pneumococcal Poly,23-Valent (Pneumovax) 05/21/19 05 Td (Age >=7 Years) 01/22/2005 Family History Medical History Relation Name Comments Hypertension Brother 1 Heart Disease Brother 2 CABG Heart Disease Father NE Macular degeneration Other muncle Cancer-breast Sister Relation Name Status Comments Brother 1 Brother 2 Father Mother Other muncle Sister Social History Tobacco Use Types Packs/Day Years Used Date Smoking Tobacco: Former Cigarettes 0.3 15 0 09/13/1949 - 09/13/1964 Smokeless Tobacco: Never Tobacco Cessation:Counseling Given: Not Answered Alcohol Use Standard Drinks/Week Comments No 0 (1 standard drink = 0.6 oz pur e alcohol) PHQ-2 Answer Date Recorded PHQ-2 TOTAL SCORE 0 12/09/2022 Social Connections Answer Date Recorded Frequency of Communication with Friends and Fami ly 0 12/09/2022 Financial Resource Strain Answer Date R ecorded Difficulty of Paying Living Expenses 3 12/09/2022 Difficulty of Paying Living Expenses Not on file 12/09/2022 Food Insecurity Answer Date Recorded Worried About Running Out of Food in the Last Ye ar 1 12/09/2022 Transportation Needs Answer Date Record ed Lack of Transportation (Medical) 1 12/09/2022 Housing Stability Answer Date Recorded Unable to Pay for Housing in the Last Year 1 12/09/2022 Sex and Gender Information Value Date Recorded Sex Assigned at Not on file Gender Identity Not on file Sexual Orientation Not on file Obstetrics History Para Term AB IAB SAB Ectopic Multiple Livin g Live Births 7 1 6 6 Date Outcome GA Total Labor Labor/2nd/3rd Weight Sex Type Anes PTL Shereen A1 A5 Name Clin AB Demise Living Status Comments:still born Vag Living Vag Living Vag Living Vag Living Vag Living Vag Living Last Filed Vital Signs Vital Sign Reading Time Taken Comments Blood Pressure 124/64 04/28/2023 9:40 AM MANAGER OF HUMAN RESOURCES Pulse 76 04/28/2023 9:40 AM MANAGER OF HUMAN RESOURCES Temperature 36.7 ??C (98.1 ??F) 04/28/2023 9:40 AM CS T Respiratory Rate 14 11/25/2022 8:15 AM CDT Oxygen Saturation 98% 04/28/2023 9:40 AM MANAGER OF HUMAN RESOURCES Inhaled Oxygen Concentration - - Weight 55.8 kg (123 lb) 04/28/2023 9:40 AM MANAGER OF HUMAN RESOURCES Height 150.7 cm (4' 11.35) 04/28/2023 9:40 AM Maximino STALLINGS Body Mass Index 24.55 04/28/2023 9:40 AM MANAGER OF HUMAN RESOURCES Plan of Treatment Upcoming Encounters Date Type Department Care Team (Late st Contact Info) Description 12/26/2023 11:00 AM CDT Office Visit [facility] [address] [place], [place] [id number] [place] [address] [place], [place] [id number] Health Maintenance Due Date Last Done Comments COVID-19 vaccine series (#1) 1943 Tdap 1949 Zoster (shingles) series for age 50+ (1 of 2) 1957 Tetanus booster 01/22/2015 01/22/2005 Depression screening for age 12+ 12/10/2023 12/09/2022, 11/12/2022, 11/08/2022, Additional history exists Medicare Wellness for age 65+ 12/10/2023, 11/12/2021, 02/28/2020, Additional history exists Influenza for age 65+ 01/15/2024 01/01/2016 , 04/08/2015, 05/01/2012 BMI (ht and wt on same day) for age 18+ 04/28/2024 04/28/2023, 12/09/2022, 11/08/2022, Additional history exists Pneumococcal series for age 65+ Completed 05/21/2004, 10/29/[facility] DEXA/DXA scan for age 65+ Completed 2022, 05/18/2018, 01/08/2016 Goals Goal Patient Goal Type Associated Problems Recent Progress Patient-Stated? Author BLOOD PRESSURE - Maintains BP less than 130/80 Blood Pressure No Minna Loco BLOOD PRESSURE - Maintains BP less than 140/90 Blood Pressure No Minna Loco Medical Devices Implanted Type Area Stock Preparation Operator Device Identifier Shelf Expiration Date Model / Serial / Lot Iol Fillmore Preload 1 Pc Clear 6mm 24.00 Diopter Tecnis - [id number] Implanted:Qty : 1 on 11/25/2022 by Sukhi Edgar MD at [facility] Opthalmology Implants Right: Eye [employer] 07/31/2025 [id number] / [id number] 1 / NA Stem Hip Sz4 Profemur Tl Titnm - [id number] Implanted:Qty : 1 on 05/19/2012 by Ricco Woodruff MD at [facility] Right: Hip 06/19/2019 [id number]# / / [id number] Head Fem Metal 36mm -3.5 - [id number] Implanted:Qty : 1 on 05/19/2012 by Ricco Woodruff MD at [facility] Right: Hip 01/17/2018 [id number] # / / [id number] Profemur Neck 8deg V/V Shrt C - [id number] Implanted:Qty : 1 on 05/19/2012 by Ricco Woodruff MD at [facility] Right: Hip 11/17/2019 [id number]# / / [id number] Liner Hip Id36mm Dynasty A-Class Pe - [id number] Implanted:Qty : 1 on 05/19/2012 by Ricco Woodruff MD at [facility] Right: Hip [employer] 02/17/2020 [id number]# / / [id number] Screw Bone 2.0cm - [id number] Implanted:Qty : 1 on 05/19/2012 by Ricco Woodruff MD at [facility] Right: Hip [employer] 07/17/2012 [id number] # / / [id number] Shell 52mm Grp D Dyn - [id number] Implanted:Qty : 1 on 05/19/2012 by Ricco Woodruff MD at [facility] Right: Hip [employer] 03/19/2020 [id number] # / / [id number] Screw Bone 2.0cm - [id number] Implanted:Qty : 1 on 05/19/2012 by Ricco Woodruff MD at [facility] Right: Hip Luc[employer]ux 10/17/2018 [id number] # / / [id number] Pin Jason Thread 16in - [id number] Implanted:Qty : 1 on 05/19/2012 at [facility] Demi [employer]omet [id number] 3# / / [id number] 3# Iol Fillmore Preload 1 Pc Clear 6mm 23.00 Diopter [facility] - [id number] Implanted:Qty : 1 on 11/11/2022 by Sukhi Edgar MD at [facility] Left: Eye [employer] 07/25/2025 [id number] 0 / [id number] / NA Explanted Type Area Stock Preparation Operator Device Identifier Shelf Expiration Date Model / Serial / Lot Pin Jason Thread 16in - [id number] Explanted:Qty: 1 on 05/19/2012 at [facility] [employer] [id number]# / / [id number]# Procedures Procedure Name Priority Date/Time Associated Diagnosis Comments XR DXA BONE DENSITY 2 SITES AXIAL Routine 12/22/2022 9:23 AM CDT Osteopenia of multiple sites from Last 3 Months or Most Recently Relevant to Health Maintenance Results * XR DXA BONE DENSITY 2 SITES AXIAL (12/22/2022 9:23 AM CDT) Anatomical Region Laterality Modality Spine, HIPS, HIPL, HIPR Computed Radiography 12/22/2022 9:23 AM CDT Impressions 12/22/2022 1:41 PM CDT OSTEOPOROSIS with interval decrease in BMD. T score meets the WHO criteria for osteoporosis at one or more measured sites. The risk of osteoporotic fracture increases approximately two-fold for each standard deviation decrease in T-score. Narrative 12/22/2022 1:41 PM CDT For Patients: As a result of the Cures Act, medical imaging exams and procedure reports are released immediately into your electronic medical record. You may view this report before your referring provider. If you have questions, please contact your health care provider. EXAM: XR DXA BONE DENSITY 2 SITES AXIAL LOCATION: [facility] DATE: 12/22/2022 INDICATION: BMD screening. Follow-up. Diagnosis of osteopenia. History of bone mineralization medication use (Fosamax last dose 30+ years ago). DEMOGRAPHICS: Age- 82 years. Gender- Female. Menopausal status- Postmenopausal. COMPARISON: None. TECHNIQUE: Dual-energy x-ray absorptiometry (DXA) performed with routine technique. FINDINGS: DXA RESULTS -Lumbar Spine: L1-L4: BMD: 0.922 g/cm2. T-score: -2.1. Z-score: 0.0. -LEFT Hip Total: BMD: 0.710 g/cm2. T-score: -2.4. Z-score: 0.1. -LEFT Hip Femoral neck: BMD: 0.693 g/cm2. T-score: -2.5. Z-score: 0.1. WHO T-SCORE CRITERIA -Normal: T score at or above -1 SD -Osteopenia: T score between -1 and -2.5 SD -Osteoporosis: T score at or below -2.5 SD The World Health Organization (WHO) criteria is applicable to perimenopausal females, postmenopausal females, and men aged 50 years or older. INTERVAL CHANGE the previous DEXA scan was performed at an outside facility, therefore direct computer comparison values are not available. However, upon manual review, it appears as though the bone density has decreased. FRACTURE RISK -The FRAX risk calculator is not applicable due to osteoporosis. RECOMMENDATIONS The patient's BMD is consistent with osteoporosis, and he/she is at increased fracture risk. If not currently being treated for low BMD, this would merit treatment according to the Bone Health and Osteoporosis Foundation. Procedure Note Maryanne Pimentel PA - 12/22/2022 For Patients: As a result of the Century Cures Act, medical imagingexams and procedure reports are released immediately into your electronicmedical record. You may view this report before your referring provider.If you have questions, please contact your health care provider. EXAM: XR DXA BONE DENSITY 2 SITES AXIAL LOCATION: [facility] DATE: 12/22/2022 INDICATION: BMD screening. Follow-up. Diagnosis of osteopenia. History ofbone mineralization medication use (Fosamax last dose 30+ years ago). DEMOGRAPHICS: Age- 82 years. Gender- Female. Menopausal status-Postmenopausal. COMPARISON: None. TECHNIQUE: Dual-energy x-ray absorptiometry (DXA) performed with routinetechnique. FINDINGS: DXA RESULTS -Lumbar Spine: L1-L4: BMD: 0.922 g/cm2. T-score: -2.1. Z-score: 0.0. -LEFT Hip Total: BMD: 0.710 g/cm2. T-score: -2.4. Z-score: 0.1. -LEFT Hip Femoral neck: BMD: 0.693 g/cm2. T-score: -2.5. Z-score: 0.1. WHO T-SCORE CRITERIA -Normal: T score at or above -1 SD -Osteopenia: T score between -1 and -2.5 SD -Osteoporosis: T score at or below -2.5 SD The World Health Organization (WHO) criteria is applicable toperimenopausal females, postmenopausal females, and men aged 50 years orolder. INTERVAL CHANGE [facility] therefore direct computer comparison values are not available.However, upon manual review, it appears as though the bone density hasdecreased. FRACTURE RISK -The FRAX risk calculator is not applicable due to osteoporosis. RECOMMENDATIONS The patient's BMD is consistent with osteoporosis, and he/she is atincreased fracture risk. If not currently being treated for low BMD, thiswould merit treatment according to the Bone Health and OsteoporosisFoundation. IMPRESSION: OSTEOPOROSIS with interval decrease in BMD. T score meets the WHO criteriafor osteoporosis at one or more measured sites. The risk of osteoporoticfracture increases approximately two-fold for each standard deviationdecrease in T-score. Angeline Sim DO DEXA from Last 3 Months or Most Recently Relevant to Health Maintenance Advance Directives * Full Code (Latest Code Status on File) Date Activated Date Inactivated Comments 05/20/2012 8:26 AM 05/21/2012 4:32 PM * Full Code Date Activated Date Inactivated Comments 05/19/2012 9:07 AM 05/19/2012 3:49 PM Care Teams Garment Presser Relationship Specialty [place] [address] [place] [address] PCP - General Family Practice 04/08/15 Monik Sotelo MD [address] [place] [address] Hematology Hematology and Oncology 03/17/20 eDnise Cisse NP [address] [place] [address] Hematology Hematology and Oncology 03/17/20
--- OUTSIDE RECORDS SUMMARY | 2023-11-17 19:28 | XMS_ITS | Referral Summary ---
Author Organization [facility] Address [address] [place] [id number] Care Team Providers Care Alliance Director Name Role Phone MihaelaverafigueroaGerardodylan Go DO Primary Care Provider [phone] Allergies Active Allergy Reactions Criticality Noted Date [...] (IIV3) PF 02/05/2009,03/11/2005,2003,04/16/2003 TD,PF 7+ (Tenivac) 01/22/2005,06/14/1994 Social History Tobacco Use Types Packs/Day Years [...] 01/22/2021 11:13 AM CDT Plan of Treatment Not on file Procedures Procedure Name Priority Date/Time Associated Diagnosis [...] 2008 10:20:00 AM HISTORY/COMPARISON: ??Left breast nodule. [facility] call back. 09/18/2008, 09/28/2006 FINDINGS: Suggestive density [...] CDT) Cholesterol 193 0 - 200 mg/dL [facility] Comment: LDL Cholesterol is the primary guide to therapy: LDL-cholesterol goal in high risk patients is <100 mg/dL and in very high risk patients is <70 mg/dL. The NCEP recommends further evaluation of: patients with cholesterol <200 mg/dL if additional risk factors are present, cholesterol >240 mg/dL, triglycerides >150 mg/dL, or HDL <40 mg/dL. Triglycerides 94 0 - 150 mg/dL [facility] HDL Cholesterol 70 50 - 110 mg/dL [facility] LDL Cholesterol Calculated 104 0 - 129 mg/dL [facility] Comment: LDL Cholesterol is the primary guide to therapy: LDL-cholesterol goal in high risk patients is <100 mg/dL and in very high risk patients is <70 mg/dL. VLDL-Cholesterol 19 0 - 30 mg/dL [facility] Cholesterol/HDL Ratio 2.8 0.0 - 5.0 [facility] 07/31/2008 11:5 5 AM CDT 07/31/2008 12:00 PM CDT Brii Laughlin MD LABORATORY [facility] * (ABNORMAL) DEXA, BONE DENSITY, AXIAL SKEL (03/01/2005 4:10 PM CDT) Anatomical Region Laterality Modality Bone Mineral Den sity Impressions 03/01/2005 4:10 PM CDT BONE DENSITOMETRY [facility] February 18, 2005 PATIENT: ??Sarah Alberto CHART: [id number] : ??1940 AGE: ??65 year old SEX: ??female REFERRING PHYSICIAN: ??Brii Laughlin M.D., ?? PROCEDURE: ??Bone density scanning was performed using DEXA technology performed on a [email or web address] Scanner. ??Reporting is completed in the form of a T-score. ??The T-score represents the standard deviation from peak bone mass based on a young healthy adult. Residential Finish Carpenter performing scan: ??Brii Cohen REFERENCE T-SCORES: ? [...] performed to previous DEXA performed on a [employer] Scanner on 10/23/1999. Electronically filed by Brii [...] IMAGING STUD IES * COLONOSCOPY (07/19/2002) Impressions Jesus Stacey - 07/19/2002 00:00 ??Operative Report-FR ??FLACO CABAN () [Signed: 19:27] ??[Entered: interfaces, [...] [id number] _ FLACO CABAN MD MT: Document: [id number] Electronically filed by Stacey Lee ??08/11/2006 ??8:44 AM Brii Laughlin MD PROCEDURES from Last 3 Months or Most Recently Relevant to Health Maintenance Care Teams Alliance Director Relationship Specialty [place] [address] [place] [address] PCP - General Family Medicine 12/31/20
[2023-11-17] MEDS: ASPIRIN 81 MG TAB.CHEW 324 MG PO (19:32)
[2023-11-17 19:37] LABS: Creatinine, Point-of-Care* 1.1 mg/dl (0.6-1.3)
[2023-11-17 19:40] LABS: Troponin, Point-of-Care* 0.01 ng/ml (0.01-0.04)
[2023-11-17 19:46] LABS: Hematocrit 34.8 % (33.0-51.0); Hemoglobin* 11.3 gm/dL (12.0-16.0); Mean Corpuscular HGB Conc 33 gm/dL (32-36); Mean Corpuscular Hemoglobin 28 pg (26-34); Mean Corpuscular Volume 86 fL (80-100); Neutrophils Percent Auto 57.1 % (42.0-72.0); Platelet Count* 233 K/uL (140-440); RDW Coefficient of Variation % 13.9 % (11.5-15.5); Red Blood Count 4.07 m/uL (4.00-5.20); White Blood Count* 3.87 K/uL (4.50-11.00)
[2023-11-17 19:47] LABS: Eosinophils Percent Auto 4.9 % (0.0-7.0); Immature Granulocytes Pct Auto 0.3 %; Lymphocytes Percent Auto 25.3 % (20-44); Monocytes Percent Auto 11.4 % (0.0-11.0); Slide Review Reflex No
[2023-11-17 19:48] LABS: Albumin* 4.9 g/dL (3.3-5.0); Chloride* 100 mmol/L (96-114)
[2023-11-17 19:49] LABS: Potassium* 4.1 mmol/L (3.6-5.1); Sodium* 132 mmol/L (135-149)
[2023-11-17 19:51] LABS: Anion Gap 9 mEq/L (7-15); Aspartate Amino Transferase* 26 U/L (12-35); Bilirubin Total* 0.4 mg/dL (0.1-1.5); Blood Urea Nitrogen* 21 mg/dL (7-30); Carbon Dioxide* 23 mmol/L (20-32); Creatinine* 0.9 mg/dL (0.5-1.5); Est. Creatinine Clearance* 37.11; Estimated Glomerular Filt Rate 63 ml/min; Total Protein* 7.4 g/dL (6.0-8.3)
[2023-11-17 19:52] LABS: Alanine Aminotransferase* 17 U/L (4-35); Alkaline Phosphatase* 58 U/L (40-150); Calcium* 9.5 mg/dL (8.4-10.6); Glucose* 134 mg/dL (60-115); Magnesium* 2.3 mg/dL (1.5-2.6)
[2023-11-17 20:12] LABS: Appearance Urine Slightly Cloudy (Clear); Bilirubin Urine Negative (Negative); Blood Urine Negative (Negative); Color Urine Yellow (Yellow); Glucose Urine Negative (Negative); Ketones Urine Negative (Negative); Leukocyte Esterase Urine Negative (Negative); Nitrite Urine Positive (Negative); Protein Urine Negative (Negative); Specific Gravity Urine 1.015 (1.000-1.030); Urobilinogen Urine 0.2 (0.2-1.0); pH Urine 7.5 (5.0-8.5)
[2023-11-17 20:13] LABS: PCR FLU A Negative PCR FLU A (Negative); PCR FLU B Negative PCR FLU B (Negative); PCR RSV Negative PCR RSV (Negative); SARS PCR* Negative SARS-CoV-2 (Negative)
[2023-11-17 20:21] LABS: Bacteria Urine Many; RBC Urine 0-2 (0-2); Squamous Epithelial Cell Urine Few (None-Few)
--- NOTE | 2023-11-17 22:25 | PM.IMHP1 ---
Hospitalist- H&P: HPI History of Present Illness Time Seen by Provider: 22:30 Date Seen: 11/17/23 Chief complaint: stroke Narrative: Sarah Alberto is a 83 year old female with h/o diastolic CHF, HTN, hyperlipdemia, and CKD III who presented through the ER for LLE weakness and garbled speech. She got up early this morning and went over to her son's place to help him with laundry. When she was done, she went home and sat in her chair. She watched SNL for the rest of the morning and afternoon, occasionally getting up out of the chair. She notes that all day her head felt funny. She denies any vision changes, GONZALEZ, lightheadedness, dizziness or vertigo. Around 4pm she got up from the chair and noticed her legs felt very weak and heavy, especially the left one. This hadn't gotten better by 6pm, so she called her daughter, who brought her to the ER. Her daughter noted that Sarah had garbled speech on the way to the ER, but this had resolved by the time she arrived. Sarah also recalls having garbled speech. She tells me she was scared because she was at home alone when this all started and she feels like she lost her ability to be independent. At one point she had to use the bathroom, but that is on the second floor of her house, so she had to get herself up 7 steps, which was very difficult and she did not think she was going to be able to do it. She denies any recent illness, fevers or urinary symptoms. 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 - Other secondary neuroendocrine tumors (ICD-10) Paroxysmal SVT (supraventricular tachycardia) ?I47.10 - Supraventricular tachycardia, unspecified (ICD-10) Age-related osteoporosis without current pathological fracture ?M81.0 - Age-related osteoporosis without current pathological fracture (ICD-10) Pulmonary nodules ?R91.8 - Other nonspecific abnormal finding of lung field (ICD-10) Spondylosis of cervical region without myelopathy or radiculopathy ?M47.812 - Spondylosis without myelopathy or radiculopathy, cervical region (ICD-10) Myalgia ?M79.10 - Myalgia, unspecified site (ICD-10) VALENTINA-inhibitor cough ?R05.8 - Other specified cough (ICD-10) ?T46.4X5A - Adverse effect of siseiejttcv-lcmbinjepb-ffvdyu inhibitors, initial encounter (ICD-10) SI joint arthritis ?M47.818 - Spondylosis without myelopathy or radiculopathy, sacral and sacrococcygeal region (ICD-10) LVH (left ventricular hypertrophy) ?I51.7 - Cardiomegaly (ICD-10) Uterine prolapse ?N81.4 - Uterovaginal prolapse, unspecified (ICD-10) Abnormal glucose ?R73.09 - Other abnormal glucose (ICD-10) Vitamin D deficiency ?E55.9 - Vitamin D deficiency, unspecified (ICD-10) Chronic kidney disease, stage III (moderate) ?N18.30 - Chronic kidney disease, stage 3 unspecified (ICD-10) Hypercholesterolemia ?E78.00 - Pure hypercholesterolemia, unspecified (ICD-10) Echocardiogram abnormal ?R93.1 - Abnormal findings on diagnostic imaging of heart and coronary circulation (ICD-10) HTN (hypertension) ?I10 - Essential (primary) hypertension (ICD-10) Ovarian mass ?N83.8 - Other noninflammatory disorders of ovary, fallopian tube and broad ligament (ICD-10) Pancreatic mass ?K86.89 - Other specified diseases of pancreas (ICD-10) Surgical History (Updated 11/17/23 @ 22:22 by Libby Tran MD) H/O hernia repair ?Z98.890 - Other specified postprocedural states (ICD-10) ?Z87.19 - Personal history of other diseases of the digestive system (ICD-10) History of lumpectomy of right breast ?Z98.890 - Other specified postprocedural states (ICD-10) Hx of tonsillectomy ?Z90.89 - Acquired absence of other organs (ICD-10) History of open reduction and internal fixation (ORIF) procedure ?Z98.890 - Other specified postprocedural states (ICD-10) History of left knee replacement ?Z96.652 - Presence of left artificial knee joint (ICD-10) History of right hip replacement ?Z96.641 - Presence of right artificial hip joint (ICD-10) Hx of hysterectomy ?Z90.710 - Acquired absence of both cervix and uterus (ICD-10) Hx of bilateral cataract extraction ?Z98.41 - Cataract extraction status, right eye (ICD-10) ?Z98.42 - Cataract extraction status, left eye (ICD-10) History of appendectomy ?Z90.49 - Acquired absence of other specified parts of digestive tract (ICD-10) History of radiofrequency ablation (RFA) procedure for cardiac arrhythmia ?Z98.890 - Other specified postprocedural states (ICD-10) S/P hysterectomy ?Z90.710 - Acquired absence of both cervix and uterus (ICD-10) Family History (Updated 11/17/23 @ 22:24 by Libby Tran MD) Sister Breast cancer Brother Coronary artery disease High blood pressure Father Coronary artery disease Myocardial infarction Social History Narrative: Patient lives independently. 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 What is your current living situation?: I presently have a place to live Problems where you live: no known problems Problems where you live details: N/A In the past 12 months, utilities in danger of being shut off: no In past 12 months, lack of transportation kept you from medical appts, meetings, work, or getting things needed for daily living: no In the past 12 mos, have been you worried that your food would run out before you had money to buy more?: never true In the past 12 mos, the food you bought just didn't last and you didn't have money to buy more?: never true Highest level of school completed/degree received: 12th grade, no diploma Smoking Status: Never smoker Do you use any of these nicotine containing products: None Second hand tobacco smoke exposure: No How often do you have a drink containing alcohol: never AUDIT-C Alcohol total score: 0 Non-prescribed substance use: denies use Caffeine: Yes How often does anyone, including family, friends and others, physically hurt you: never How often does anyone, including family, friends and others, insult or talk down to you: never How often does anyone, including family, friends and others, threaten you with harm: never How often does anyone, including family, friends and others, scream or curse at you: never Are you using contraception or practicing any form of control: No service: No Meds Home Medications and Allergies Home Medications ?Medication ?Instructions ?Recorded ?Confirmed ?Type alendronate 70 mg tablet 70 mg PO Q7D 04/06/23 11/17/23 History amlodipine 5 mg tablet 5 mg PO DAILY 04/06/23 11/17/23 History aspirin 81 mg tablet 81 mg PO DAILY 05/05/23 11/17/23 History calcium carbonate 300 mg PO DAILY 05/05/23 11/17/23 History cholecalciferol (vitamin D3) 1 tab PO DAILY 05/05/23 11/17/23 History coenzyme Q10 100 mg capsule 100 mg PO DAILY 05/05/23 11/17/23 History docusate sodium 100 mg capsule 100 mg PO DAILY 05/05/23 11/17/23 History (Colace) losartan 100 mg tablet 100 mg PO DAILY 05/05/23 11/17/23 History Allergies Allergy/AdvReac Type Severity Reaction Status Date / Time phenytoin Allergy Severe Seizure Verified 11/17/23 19:32 VALENTINA Inhibitors AdvReac Unknown Cough Verified 11/17/23 22:18 Exam Narrative: Exam Narrative: General: No acute distress. Awake alert oriented x3. HEENT: Normocephalic atraumatic, pupils equally round and reactive to light and accommodation. Oropharynx clear. Mucous membranes are moist. No cervical lymphadenopathy, thyromegaly or carotid bruits. No JVD. Cardiovascular: Regular rate and rhythm. No murmurs, gallops, or rubs. Chest: No increased work of breathing. Clear to auscultation bilaterally. No crackles or wheezes. Abdomen: Bowel sounds present. Soft, nondistended, nontender. No hepatosplenomegaly or masses. Extremities: 1+ bilateral ankle edema, no cyanosis or clubbing. Skin: No jaundice, no pallor, no rashes. Neuro: Romberg is negative. Cranial nerves 2-12 are intact. Extraocular movements are full. No nystagmus. No facial asymmetry. Tongue is midline. Peripheral vision and vision are grossly intact. When pressing against my hands, strength seemed equal with flexion of both lower extremities, however when I asked her to bring her knees up, she got custodial up with her left leg and then was unable to bring it up any further. Strength is otherwise 5/5 in all 4 extremities. DTRs intact and symmetric. Light touch sensation is intact in face body and extremities. Coordination is intact in upper and lower extremities although she had difficulty with the left heel to right levin due to weakness of the left leg. Const: Vital Signs, click to edit/add: Vital Signs - 24 hr 11/17/23 19:07 11/17/23 19:24 11/17/23 19:29 Temperature 98.2 F Pulse Rate 74 Pulse Rate [Left P ulse Oximeter] Pulse Rate [Right Pulse Oximeter] 80 Respiratory Rate 18 20 Blood Pressure 136/79 Blood Pressure [Le ft Arm] Blood Pressure [Ri ght Upper Arm] 190/88 H Pulse Oximetry 95 96 [facility] 11/17/23 19:31 11/17/23 19:52 11/17/23 20:01 Temperature Pulse Rate 69 74 78 Pulse Rate [Left P ulse Oximeter] Pulse Rate [Right Pulse Oximeter] Respiratory Rate 20 20 20 Blood Pressure 150/77 H 159/72 H 152/69 H Blood Pressure [Le ft Arm] Blood Pressure [Ri ght Upper Arm] Pulse Oximetry 95 97 97 [facility] 11/17/23 20:12 11/17/23 20:22 11/17/23 20:31 Temperature Pulse Rate 72 74 75 Pulse Rate [Left P ulse Oximeter] Pulse Rate [Right Pulse Oximeter] Respiratory Rate 20 20 20 Blood Pressure 149/79 H 138/66 128/75 Blood Pressure [Le ft Arm] Blood Pressure [Ri ght Upper Arm] Pulse Oximetry 94 93 94 [facility] 11/17/23 20:42 11/17/23 20:52 11/17/23 21:01 Temperature 98.2 F Pulse Rate 75 72 Pulse Rate [Left P ulse Oximeter] Pulse Rate [Right Pulse Oximeter] 73 Respiratory Rate 20 20 20 Blood Pressure 136/70 150/76 H Blood Pressure [Le ft Arm] Blood Pressure [Ri ght Upper Arm] 153/76 H Pulse Oximetry 93 95 94 Oxygen Delivery [facility] Room Air 11/17/23 21:01 11/17/23 21:16 11/17/23 22:01 Temperature 98.2 F 98.7 F Pulse Rate 73 Pulse Rate [Left P ulse Oximeter] 88 Pulse Rate [Right Pulse Oximeter] 73 Respiratory Rate 20 20 16 Blood Pressure 153/70 H Blood Pressure [Le ft Arm] 150/70 H Blood Pressure [Ri ght Upper Arm] 153/76 H Pulse Oximetry 94 96 Oxygen Delivery [facility] Room Air 11/17/23 22:09 Temperature Pulse Rate Pulse Rate [Left P ulse Oximeter] Pulse Rate [Right Pulse Oximeter] Respiratory Rate 16 Blood Pressure Blood Pressure [Le ft Arm] Blood Pressure [Ri ght Upper Arm] Pulse Oximetry 96 Oxygen Delivery [facility] Room Air Hospitalist - H&P: Result Labs Labs: Short CBC 11/17/23 Range/Units 19:30 WBC 3.87 L (4.50-11.00) K/uL Hgb 11.3 L (12.0-16.0) gm/dL Hct 34.8 (33.0-51.0) % Plt Count 233 (140-440) K/uL BMP 11/17/23 19:30 Sodium 132 L Potassium 4.1 Chloride 100 Carbon Dioxide 23 BUN 21 Creatinine 0.9 Glucose 134 H Calcium 9.5 Liver Function 11/17/23 Range/Units 19:30 Total Bilirubin 0.4 (0.1-1.5) mg/dL AST 26 (12-35) U/L ALT 17 (4-35) U/L Alkaline Phosphatase 58 (40-150) U/L Albumin 4.9 (3.3-5.0) g/dL Urine 11/17/23 Range/Units 19:27 Urine Color Yellow (Yellow) Urine Appearance Slightly Cloudy A (Clear) Urine pH 7.5 (5.0-8.5) Ur Specific [place] 1.015 (1.000-1.030) Urine Protein Negative (Negative) Urine Glucose (UA) Negative (Negative) 11/17/2023 EKG: Normal sinus rhythm, 68 beats per minute, minimal voltage criteria for LVH, maybe normal variant. Nonspecific T-wave abnormality. Ordering Physician: García Modi D.O. Date of Service: 11/17/23 Procedure(s): CT head/brain wo con Accession Number(s): [id number] cc: García Modi D.O.; Angeline Sim D.O.~ For Patients: As a result of the Cures Act, medical imaging exams and procedure reports are released immediately into your electronic medical record. You may view this report before your referring provider. If you have questions, please contact your health care provider. Indication: Left leg heaviness Technique: Volumetric multidetector CT images of the head were obtained without the administration of low osmolar intravenous contrast. Comparison: None available Findings: There is no intra-axial or extra-axial fluid collection. There is no mass effect or midline shift. There is age-related cortical atrophy with mild sulcal widening and ex vacuo dilatation of the lateral ventricles. There are chronic small vessel disease changes in the subcortical and periventricular white matter without lost perez-white differentiation. The orbits and their contents are grossly within normal limits. The bony calvarium is grossly intact. The paranasal sinuses are clear. The mastoid air cells are well aerated. Impression: 1. Age-related changes of the brain without acute intracranial abnormality. A negative head report was sent to Dr. Nails at 7:36 p.m. November 17, 20[address] Please note that all CT scans at this facility use dose modulation, iterative reconstruction, and/or weight-based dosing when appropriate to reduce radiation dose to as low as reasonably achievable. Dictated by Wan Tan MD @ 11/17/2023 7:40:39 PM (Electronically Signed) Ordering Physician: García Modi D.O. Date of Service: 11/17/23 Procedure(s): CT angio head Accession Number(s): [id number] cc: García Modi D.O.; Angeline Sim D.O.~ For Patients: As a result of the Cures Act, medical imaging exams and procedure reports are released immediately into your electronic medical record. You may view this report before your referring provider. If you have questions, please contact your health care provider. DATE: 11/17/2023 CLINICAL HISTORY: Patient with focal neurological deficits. TECHNIQUE: Standard helical CT image acquisition through the intracranial circulation following intravenous administration of contrast material with bolus tracking. 2D and 3D MIP images for post-processing were performed and interpreted on an independent workstation and 3D images were permanently archived. COMPARISON: CT same day. FINDINGS: There is no cerebral aneurysm or large vessel occlusion. There is intracranial atherosclerosis with focal severe right M2 and right P3 segment stenoses, as well as multifocal moderate stenoses in the right M1 and right P1 segments. The right vertebral artery is dominant. The basilar artery is patent and appears normal. The visualized venous structures are patent. IMPRESSION: 1. No cerebral aneurysm or large vessel occlusion. 2. Intracranial atherosclerosis with focal severe right M2 and right P3 segment stenoses, as well as multifocal moderate stenoses in the right M1 and right P1 segments. Please note that all CT scans at this facility use dose modulation, iterative reconstruction, and/or weight-based dosing when appropriate to reduce radiation dose to as low as reasonably achievable. Dictated by Lorraine Santana MD @ 11/17/2023 9:29:45 PM (Electronically Signed) Ordering Physician: García Modi D.O. Date of Service: 11/17/23 Procedure(s): CT angio neck Accession Number(s): [id number] cc: García Modi D.O.; Angeline Sim D.O.~ For Patients: As a result of the Cures Act, medical imaging exams and procedure reports are released immediately into your electronic medical record. You may view this report before your referring provider. If you have questions, please contact your health care provider. DATE: 11/17/2023 CLINICAL HISTORY: Patient with focal neurological deficits. TECHNIQUE: Standard helical CT image acquisition of the neck up to the skull base after bolus intravenous contrast enhancement. 2D and 3D MIP images for post-processing were performed and interpreted on an independent workstation and 3D images were permanently archived. COMPARISON: None. FINDINGS: The origins of the great vessels from the aortic arch are patent. The origin of the right vertebral artery is patent. The origin of the left vertebral artery is patent. The common carotid arteries are patent. There is a mild (<50%) stenosis at the origin of the right internal carotid artery by NASCET criteria. This is caused by calcified plaque with a <2mm residual lumen. There is plaque without stenosis at the origin of the left internal carotid artery by NASCET criteria. The rest of the cervical segments of the internal carotid arteries are patent up to the skull base. The right vertebral artery is dominant. The cervical segments of the vertebral arteries are patent up to the skull base. The visualized lung apices are unremarkable. The thyroid gland is unremarkable. The soft tissues of the neck are unremarkable. There are degenerative changes in the cervical spine. IMPRESSION: Mild (<50%) stenosis at the origin of the right internal carotid artery by NASCET criteria. This is caused by calcified plaque with a <2mm residual lumen. Please note that all CT scans at this facility use dose modulation, iterative reconstruction, and/or weight-based dosing when appropriate to reduce radiation dose to as low as reasonably achievable. Dictated by Lorraine Santana MD @ 11/17/2023 9:25:17 PM (Electronically Signed) Assessment and Plan Assessment and plan (1) Left leg weakness: Problem comment: - This is persistent. Was associated with garbled speech, which has resolved. CT and CTA done, results above. ER provider d/w Dr. Nails from stroke neuro. - Due to unknown time of symptom onset, she is not a candidate for TPA. - Aspirin given in ER. Will continue 81 mg daily. - Allow for permissive HTN (hold home losartan and amlodipine). - Patient has previously not tolerated atorvastatin due to myalgias, so these were discontinued when she was 68y/o. Will hold off on starting statin. Await MRI and Neuro recommendations. - Admit for obs on tele, obtain ECHO (last one was in 2020) and MRI brain. - PT and OT to evaluate. She lives independently with 7 steps up to bathroom on 2nd floor (no bathroom on main floor). May need rehab. Status: Acute (2) Chronic kidney disease, stage III (moderate): Problem comment: - baseline Cr 0.8-0.9 - stable Status: Chronic (3) Hypercholesterolemia: Problem comment: - previously intolerant to statins. Await results of MRI and neuro consult Status: Chronic (4) HTN (hypertension): Problem comment: - allow for permissive hypertension, hold amlodipine and losartan Status: Chronic H&P: Quality Stroke Onset of Symptoms Date: 11/17/23 Symptom Onset Unknown: Yes
[2023-11-18] VITALS (13 sets, daily range): BP systolic 143–171; BP diastolic 64–102; PULSE 61–76; RESP 16–20; TEMP 36.6–37.1; O2SAT 93–97
--- NOTE | 2023-11-18 | CRLHL7_ITS ---
For Patients: As a result of the Century Cures Act, medical imaging exams and procedure reports are released immediately into your electronic medical record. You may view this report before your referring provider. If you have questions, please contact your health care provider. Indication: Left leg weakness, speech changes. Technique: Multisequence multiplanar MRI of the brain without the use of intravenous contrast. Comparison: Correlated with CT head dated 11/17/2023. Findings: Focal diffusion restriction involving the posterior limb right internal capsule and right putamen consistent with acute ischemia. Minimal associated T2/FLAIR hyperintensity. Scattered as well as confluent additional T2 prolongation within the supratentorial white matter typical of chronic small vessel ischemic changes. Punctate focus of susceptibility artifact in the right subinsular region. Mild diffuse parenchymal volume loss. No ventricular obstruction. Flow voids of the larger intracranial arteries are preserved. Normal calvarial bone marrow signal intensity. Bilateral pseudophakia. Mild diffuse paranasal sinus mucosal thickening. Impression: 1. Diffusion restriction involving the posterior limb right internal capsule and right putamen consistent with acute ischemia. Minimal associated T2/FLAIR hyperintensity suggests time course of less than 6 hours. No evidence of hemorrhagic conversion. 2. Mild diffuse parenchymal volume loss and moderate chronic small vessel ischemic changes. 3. Punctate focus of susceptibility in the right subinsular region consistent with sequela of prior microhemorrhage. 4. Mild diffuse paranasal sinus mucosal thickening. Findings were discussed with Dr. Tran on 11/18/2023 at 11:07 a.m.. Dictated by Olman Grace MD @ 11/18/2023 11:07:53 AM (Electronically Signed)
--- NOTE | 2023-11-18 05:20 | PC.NURSE ---
Shift note: Pt arrived at the unit at 2039 on wheelchair. Pt was conscious, alert and oriented but complained of heaviness in the left leg. Admitted to bed and oriented to room. Bp was elevated on arrival but went down after pt had rested. Pt was ambulated with A1. Pt complained of discomfort in the right leg but refused to take medication. No deterioration to cognitive and neuro check.
[2023-11-18] MEDS: ASPIRIN 81 MG TAB.CHEW PO (11:28)
[2023-11-18] MEDS: SODIUM CHLORIDE 0.9 % (FLUSH) 10 ML SYRINGE 5 ML IVF ×2 (11:28→20:40)
--- NOTE | 2023-11-18 13:54 | P.IMPN_ITS ---
Progress Note: A&P Assessment and plan (1) Ischemic stroke: Problem details: - This is persistent. Was associated with garbled speech, which has resolved. CT and CTA done, results above. ER provider d/w Dr. Nails from stroke neuro. - Due to unknown time of symptom onset, she is not a candidate for TPA. - Aspirin given in ER. - MRI brain shows stroke. ECHO complete. Results discussed with patient and daughter. Appreciate stroke neuro's recommendations - Allow for permissive HTN (hold home losartan and amlodipine). - Patient has previously not tolerated atorvastatin due to myalgias, so these were discontinued when she was 68y/o. Will hold off on starting statin. Ordered lipid panel. May need bile sequestrant. - Admit for stroke. - Continue PT and OT to evaluate. She lives independently with 7 steps up to bathroom on 2nd floor (no bathroom on main floor). Will need rehab. - Speech therapy. Status: Acute (2) Chronic kidney disease, stage III (moderate): Problem details: - baseline Cr 0.8-0.9 - stable Status: Chronic (3) Hypercholesterolemia: Problem details: - previously intolerant to statins. Await results of MRI and neuro consult Status: Chronic (4) HTN (hypertension): Problem details: - allow for permissive hypertension, hold amlodipine and losartan Status: Chronic Subjective Date Seen: 11/18/23 Interval history: Sarah had new symptoms this morning of ataxia, L lower face weakness, L arm weakness, worse L leg weakness. She denies headache, numbness or vision changes. Stroke neuro was called and notified. MRI completed this am. I spoke with the patient this morning, returned several times to talk with her daughter, Brii, and later to speak with her other daugther. I also reviewed the neurology note and recommendations in the EPIC records. I spent a total of 50 minutes caring for this patient today. Exam Narrative: Exam Narrative: General: No acute distress. Awake alert oriented x3. Cardiovascular: Regular rate and rhythm. No murmurs, gallops, or rubs. Chest: No increased work of breathing. Clear to auscultation bilaterally. No crackles or wheezes. Abdomen: Bowel sounds present. Soft, nondistended, nontender. No hep atosplenomegaly or masses. Extremities: 1+ bilateral ankle edema, unchanged, no cyanosis or clubbing. Neuro: Romberg positive. Left lower facial droop present. Cranial nerves 2-12 are otherwise intact. Extraocular movements are full. No nystagmus. Tongue is midline. Peripheral vision and vision are grossly intact. Left arm and leg strength are diminished, 3/5. Strength of R arm and leg are 5/5. Light touch sensation is intact in face body and extremities. Coordination is abnormal in left upper and lower extremity, intact in R upper and lower extremity. Const: Vital Signs, click to edit/add: Vital Signs - 24 hr 11/17/23 19:07 11/17/23 19:24 11/17/23 19:29 Temperature 98.2 F Pulse Rate 74 Pulse Rate [Left P ulse Oximeter] Pulse Rate [Right Pulse Oximeter] 80 Respiratory Rate 18 20 Blood Pressure 136/79 Blood Pressure [Le ft Arm] Blood Pressure [Ri ght Upper Arm] 190/88 H Pulse Oximetry 95 96 98 [facility] 11/17/23 19:31 11/17/23 19:52 11/17/23 20:01 Temperature Pulse Rate 69 74 78 Pulse Rate [Left P ulse Oximeter] Pulse Rate [Right Pulse Oximeter] Respiratory Rate 20 20 20 Blood Pressure 150/77 H 159/72 H 152/69 H Blood Pressure [Le ft Arm] Blood Pressure [Ri ght Upper Arm] Pulse Oximetry 95 97 97 [facility] 11/17/23 20:12 11/17/23 20:22 11/17/23 20:31 Temperature Pulse Rate 72 74 75 Pulse Rate [Left P ulse Oximeter] Pulse Rate [Right Pulse Oximeter] Respiratory Rate 20 20 20 Blood Pressure 149/79 H 138/66 128/75 Blood Pressure [Le ft Arm] Blood Pressure [Ri ght Upper Arm] Pulse Oximetry 94 93 94 [facility] 11/17/23 20:42 11/17/23 20:52 11/17/23 21:01 Temperature 98.2 F Pulse Rate 75 72 Pulse Rate [Left P ulse Oximeter] Pulse Rate [Right Pulse Oximeter] 73 Respiratory Rate 20 20 20 Blood Pressure 136/70 150/76 H Blood Pressure [Le ft Arm] Blood Pressure [Ri ght Upper Arm] 153/76 H Pulse Oximetry 93 95 94 [facility] 11/17/23 21:01 11/17/23 21:16 11/17/23 22:01 Temperature 98.2 F 98.7 F Pulse Rate 73 Pulse Rate [Left P ulse Oximeter] 88 Pulse Rate [Right Pulse Oximeter] 73 Respiratory Rate 20 20 16 Blood Pressure 153/70 H Blood Pressure [Le ft Arm] 150/70 H Blood Pressure [Ri ght Upper Arm] 153/76 H Pulse Oximetry 94 96 Oxygen Delivery Me od Room Air 11/17/23 22:09 11/17/23 22:24 11/17/23 23:00 Temperature Pulse Rate Pulse Rate [Left P ulse Oximeter] 71 71 Pulse Rate [Right Pulse Oximeter] Respiratory Rate 16 16 Blood Pressure Blood Pressure [Le ft Arm] Blood Pressure [Ri ght Upper Arm] Pulse Oximetry 96 [facility] 11/17/23 23:00 11/17/23 23:00 11/17/23 23:00 Temperature 98.7 F Pulse Rate 67 Pulse Rate [Left P ulse Oximeter] 71 Pulse Rate [Right Pulse Oximeter] Respiratory Rate 16 16 Blood Pressure Blood Pressure [Le ft Arm] 163/64 H Blood Pressure [Ri ght Upper Arm] Pulse Oximetry 96 96 Oxygen Delivery [facility] Room Air Room Air 11/18/23 02:24 11/18/23 03:00 11/18/23 05:19 Temperature 97.8 F Pulse Rate Pulse Rate [Left P ulse Oximeter] 61 62 64 Pulse Rate [Right Pulse Oximeter] Respiratory Rate 16 Blood Pressure Blood Pressure [Le ft Arm] 144/73 H Blood Pressure [Ri ght Upper Arm] Pulse Oximetry 93 [facility] 11/18/23 07:00 11/18/23 07:00 11/18/23 07:00 Temperature 98 F Pulse Rate 68 Pulse Rate [Left P ulse Oximeter] 70 Pulse Rate [Right Pulse Oximeter] Respiratory Rate 16 Blood Pressure Blood Pressure [Le ft Arm] 167/72 H Blood Pressure [Ri ght Upper Arm] Pulse Oximetry 97 97 [facility] Room Air 11/18/23 07:30 11/18/23 07:30 11/18/23 12:15 Temperature Pulse Rate Pulse Rate [Left P ulse Oximeter] 70 70 70 Pulse Rate [Right Pulse Oximeter] Respiratory Rate 16 Blood Pressure Blood Pressure [Le ft Arm] Blood Pressure [Ri ght Upper Arm] Pulse Oximetry Oxygen Delivery Me thod 11/18/23 12:15 Temperature 97.9 F Pulse Rate Pulse Rate [Left P ulse Oximeter] 68 Pulse Rate [Right Pulse Oximeter] Respiratory Rate 16 Blood Pressure Blood Pressure [Le ft Arm] 171/102 H Blood Pressure [Ri ght Upper Arm] Pulse Oximetry 95 Oxygen Delivery Me thod Room Air Labs Labs: Laboratory Results - last 24 hr 11/17/23 11/17/23 11/17/23 19:19 19:20 19:27 WBC RBC Hgb Hct MCV MCH MCHC RDW Coeff of Guillermo Plt Count Neut % (Auto) Lymph % (Auto) [place] % (Auto) Eos % (Auto) Baso % (Auto) Neut # (Auto) Lymph # (Auto) [place] # (Auto) Eos # (Auto) Baso # (Auto) Abs Immat Gran (auto) Imm/Tot Granulo (auto) Sodium Potassium Chloride Carbon Dioxide Anion Gap BUN Creatinine Estimated Creat Clear Estimated GFR Glucose Calcium Magnesium Total Bilirubin AST ALT Alkaline Phosphatase Total Protein Albumin Urine Color Yellow Urine Appearance Slightly Cloudy A Urine pH 7.5 Ur Specific [place] 1.015 Urine Protein Negative Urine Glucose (UA) Negative Urine Ketones Negative Urine Blood Negative Urine Nitrite Positive A Urine Bilirubin Negative Urine Urobilinogen 0.2 Ur Leukocyte Esterase Negative Urine RBC 0-2 Urine WBC 2-5 Ur Squamous Epith Cells Few Urine Bacteria Many A SARS-CoV-2 (PCR) Influenza Type A (PCR) Influenza Type B (PCR) RSV (PCR) POC Glucose 131 H POC Creatinine 1.1 POC Troponin I 0.01 11/17/23 19:30 WBC 3.87 L RBC 4.07 Hgb 11.3 L Hct 34.8 MCV 86 MCH 28 MCHC 33 RDW Coeff of Guillermo 13.9 Plt Count 233 Neut % (Auto) 57.1 Lymph % (Auto) 25.3 [place] % (Auto) 11.4 H Eos % (Auto) 4.9 Baso % (Auto) 1.0 Neut # (Auto) 2.20 Lymph # (Auto) 1.00 [place] # (Auto) 0.40 Eos # (Auto) 0.20 Baso # (Auto) 0.00 Abs Immat Gran (auto) 0.00 Imm/Tot Granulo (auto) 0.3 Sodium 132 L Potassium 4.1 Chloride 100 Carbon Dioxide 23 Anion Gap 9 BUN 21 Creatinine 0.9 Estimated Creat Clear 37.11 Estimated GFR 63 Glucose 134 H Calcium 9.5 Magnesium 2.3 Total Bilirubin 0.4 AST 26 ALT 17 Alkaline Phosphatase 58 Total Protein 7.4 Albumin 4.9 Urine Color Urine Appearance Urine pH Ur Specific [place] Urine Protein Urine Glucose (UA) Urine Ketones Urine Blood Urine Nitrite Urine Bilirubin Urine Urobilinogen Ur Leukocyte Esterase Urine RBC Urine WBC Ur Squamous Epith Cells Urine Bacteria SARS-CoV-2 (PCR) Negative SARS-CoV-2 Influenza Type A (PCR) Negative PCR FLU A Influenza Type B (PCR) Negative PCR FLU B RSV (PCR) Negative PCR RSV POC Glucose POC Creatinine POC Troponin I Progress Note: Quality Stroke Onset of Symptoms Date: 11/17/23 Symptom Onset Unknown: Yes
--- NOTE | 2023-11-18 14:06 | PC.SOCIAL ---
Met with pt. and daughter Gisela to discuss discharge plans. Pt. has had a stroke and will need a short-term rehab bed. Pt. prefers placement in the following order. 1. [facility]-They have no female beds available 2. [facility]- [facility] in admissions was not in the office at [phone] and a message could not be left. Left a message for the unit charge at [phone] on bed availability and secure emailed pt.'s referral to [facility] in admissions. 3. [facility]. -Left a message for Liam in Admissions at [phone] and secure emailed a referral for pt. for Tuesday.,
[2023-11-18] MEDS: CLOPIDOGREL 75 MG TABLET PO (14:30)
--- NOTE | 2023-11-18 15:19 | PC.NURSE ---
AT BEGINNING OF SHIFT, PATIENT NOTED TO HAVE LEFT FACIAL DROOP AND LEFT ARM DRIFT, WITH CONTINUED LEFT LOWER EXTREMITY WEAKNESS. MD UPDATED AND TELENEUROLOGY CONSULTED. NEURO ADVISED NO STROKE CODE BUT TO CONTINUE WITH PLAN FOR MRI THIS AM. MRI AND ECHO COMPLETED AND TELENEUROLOGY CONSULT COMPLETED AT 1145 IN ROOM. PATIENT'S DAUGHTERS PRESENT AT TIME OF CONSULT. UP WITH A1-2, WALKER AND GAIT BELT TO BATHROOM AND BSC. DENIES PAIN OR N/V. DENIES FEELING DIZZY OR LIGHTHEADED. SPEECH HAS BEEN CLEAR AND NO DIFFICULTY WITH SWALLOWING REPORTED BY PATIENT OR NOTED BY STAFF.
[2023-11-19] VITALS (16 sets, daily range): BP systolic 133–151; BP diastolic 57–96; PULSE 59–77; RESP 18; TEMP 35.6–37.1; O2SAT 93–96
--- NOTE | 2023-11-19 07:23 | PM.IMPN1 ---
Progress Note: A&P Assessment and plan (1) Ischemic stroke: Problem details: - Was initially associated with garbled speech, which has resolved. CT and CTA done, results above. ER provider d/w Dr. Nails from stroke neuro. - Due to unknown time of symptom onset, she was not a candidate for TPA. - Aspirin given in ER. - MRI brain shows stroke. ECHO complete. Results discussed with patient and daughter. Appreciate stroke neuro's recommendations - Allowing for permissive HTN (hold home losartan and amlodipine). - Patient has previously not tolerated atorvastatin due to myalgias, so these were discontinued when she was 68y/o. Due to this I will not start a statin. Lipid panel pending. May need bile sequestrant. - Speech therapy ordered. - Continue PT and OT. She lives independently with 7 steps up to bathroom on 2nd floor (no bathroom on main floor). Will need rehab. No options available this weekend; no safe discharge plan. Status: Acute (2) Hypercholesterolemia: Problem details: - previously intolerant to statins. Lipid panel pending. May need bile sequestrant. Status: Chronic (3) HTN (hypertension): Problem details: - allow for permissive hypertension, holding amlodipine and losartan Status: Chronic Subjective Date Seen: 11/19/23 Interval history: Sarah reports that she got a good night's sleep. She is feeling much better. She has not been up to walk yet this morning, but notes that her left leg and arm are moving much better. Exam Narrative: Exam Narrative: General: No acute distress. Awake alert oriented. Cardiovascular: Regular rate and rhythm. No murmurs, gallops, or rubs. Chest: No increased work of breathing. Clear to auscultation bilaterally. No crackles or wheezes. Neuro: Romberg slightly positive, improved from yesterday. Left lower facial droop persists. Cranial nerves 2-12 are otherwise intact. Tongue is midline. Left arm and leg strength are slightly diminished, 4+/5. Strength of R arm and leg are 5/5. Const: Vital Signs, click to edit/add: Vital Signs - 24 hr 11/18/23 07:30 11/18/23 07:30 11/18/23 12:15 Temperature Pulse Rate Pulse Rate [Left P ulse Oximeter] 70 70 70 Respiratory Rate 16 Blood Pressure [Le ft Arm] Pulse Oximetry Oxygen Delivery Me thod 11/18/23 12:15 11/18/23 15:00 11/18/23 15:00 Temperature 97.9 F Pulse Rate Pulse Rate [Left P ulse Oximeter] 68 75 Respiratory Rate 16 16 16 Blood Pressure [Le ft Arm] 171/102 H Pulse Oximetry 95 93 Oxygen Delivery Me thod Room Air Room Air 11/18/23 15:00 11/18/23 16:00 11/18/23 18:06 Temperature 97.9 F Pulse Rate 67 Pulse Rate [Left P ulse Oximeter] 75 70 Respiratory Rate 16 Blood Pressure [Le ft Arm] 168/91 H Pulse Oximetry 93 Oxygen Delivery Me thod Room Air 11/18/23 19:00 11/18/23 20:00 11/18/23 23:00 Temperature 98.7 F Pulse Rate Pulse Rate [Left P ulse Oximeter] 76 76 Respiratory Rate 18 20 Blood Pressure [Le ft Arm] 171/87 H Pulse Oximetry 96 95 Oxygen Delivery Me thod Room Air Room Air 11/18/23 23:00 11/18/23 23:00 11/18/23 23:36 Temperature 98.3 F Pulse Rate 65 Pulse Rate [Left P ulse Oximeter] 67 67 Respiratory Rate 20 20 Blood Pressure [Le ft Arm] 143/64 H Pulse Oximetry 95 Oxygen Delivery Me thod Room Air 11/19/23 00:00 11/19/23 03:00 11/19/23 04:00 Temperature 98.4 F Pulse Rate Pulse Rate [Left P ulse Oximeter] 67 64 64 Respiratory Rate 18 Blood Pressure [Le ft Arm] 133/58 L Pulse Oximetry 96 Oxygen Delivery Me thod Room Air Progress Note: Quality Stroke Onset of Symptoms Date: 11/17/23 Symptom Onset Unknown: Yes
--- NOTE | 2023-11-19 07:35 | PC.NURSE ---
End of shift note [id number]: Pt alert & oriented x 4 and able to make needs known. VSS and pt has been afebrile. PERRLA. Pt noted to have slight left-sided facial drooping and left arm drift noted which are not new findings. She safely transferred to bedside commode with assist of 1 and gait belt. Pt continent of bladder. Pt denied pain when asked with no nonverbal indications of pain noted. IV to R AC SL.
[2023-11-19] MEDS: SODIUM CHLORIDE 0.9 % (FLUSH) 10 ML SYRINGE 5 ML IVF ×2 (08:30→21:46)
[2023-11-19] MEDS: COENZYME Q10 100 MG CAPSULE PO (08:30)
[2023-11-19] MEDS: CLOPIDOGREL 75 MG TABLET PO (08:30)
[2023-11-19 08:49] LABS: Cholesterol* 288 mg/dL (90-199); HDL Cholesterol* 76 mg/dL (>=50); LDL Cholesterol Calculated 187 mg/dL (<100); Triglycerides* 127 mg/dL (40-149)
--- NOTE | 2023-11-19 18:10 | PC.NURSE ---
Patient VSS. Alert and oriented. Patient tolerated a regular diet. SBA with walker, gait belt with transfer and ambulation. Patient is feeling stronger today. Neuros intact and strength and mobility in left arm and leg have improved. Was able to ambulate to the bathroom without complications. Patient pleasant. Family in and out throughout the day visiting.
--- NOTE | 2023-11-19 23:23 | PC.NURSE ---
End of Shift: Patient pleasant and cooperative. Afebrile. Denies pain. Weakness to left arm and leg that patient states has improved. Up with 1 assist, walker and gait belt. Tolerating regular diet with no nausea.
[2023-11-20] VITALS (14 sets, daily range): BP systolic 125–160; BP diastolic 52–96; PULSE 64–78; RESP 16–20; TEMP 35.9–37.2; O2SAT 95–97
--- NOTE | 2023-11-20 06:27 | PC.NURSE ---
End of shift note [id number]: Pt noted to be alert & oriented x 4 and able to make needs known.?Pt has been afebrile. Pt has been denying pain when asked. She is transferring/ambulating with assist of 1 using walker and gait belt. Pt on telemetry with asymptomatic sinus bradycardia noted. Pt continent of bowel and bladder. PERRLA. Slight left sided facial drooping continues to be noted (not a new finding).
[2023-11-20] MEDS: EZETIMIBE 10 MG TABLET PO (09:06)
[2023-11-20] MEDS: CLOPIDOGREL 75 MG TABLET PO (09:06)
[2023-11-20] MEDS: COENZYME Q10 100 MG CAPSULE PO (09:06)
[2023-11-20] MEDS: SODIUM CHLORIDE 0.9 % (FLUSH) 10 ML SYRINGE 5 ML IVF (09:25)
--- NOTE | 2023-11-20 14:32 | PM.IMPN1 ---
Progress Note: A&P Assessment and plan (1) Ischemic stroke: Problem details: - Was initially associated with garbled speech, which has resolved. CT and CTA done, results above. ER provider d/w Dr. Nails from stroke neuro. - Due to unknown time of symptom onset, she was not a candidate for TPA. - Aspirin given in ER. - MRI brain shows stroke. ECHO complete. Results discussed with patient and daughter. Appreciate stroke neuro's recommendations - Allowing for permissive HTN (hold home losartan and amlodipine). - Patient has previously not tolerated atorvastatin due to myalgias, so these were discontinued when she was 68y/o. Due to this I will not start a statin. Lipids elevated. Zetia started 11/19. - Speech therapy ordered. - Continue PT and OT. She lives independently with 7 steps up to bathroom on 2nd floor (no bathroom on main floor). Will need rehab. No options available this weekend; no safe discharge plan. Status: Acute (2) Hypercholesterolemia: Problem details: - previously intolerant to statins. Lipid panel abnormal. Zetia started 11/19. Status: Chronic (3) HTN (hypertension): Problem details: - allow for permissive hypertension for 72 hours, holding amlodipine and losartan. Restart these tomorrow. Status: Chronic Subjective Time Seen by Provider: 08:10 Date Seen: 11/20/23 Interval history: Sarah tells me that she looked in a mirror for the first time since coming in, and she notices the left lower facial droop. She has no new complaints and feels that her left arm and leg weakness are getting better each day. She recognizes that she will be able to go home just yet and would like to go to rehab so she has the ability to get stronger and be independent at home in the future. Exam Narrative: Exam Narrative: General: No acute distress. Awake alert oriented. Cardiovascular: Regular rate and rhythm. No murmurs, gallops, or rubs. Chest: No increased work of breathing. Clear to auscultation bilaterally. No crackles or wheezes. Neuro: Left lower facial droop persists. Cranial nerves 2-12 are otherwise intact. Tongue is midline. Left arm and leg strength are slightly diminished, 4+/5. Strength of R arm and leg are 5/5. Const: Vital Signs, click to edit/add: Vital Signs - 24 hr 11/19/23 15:00 11/19/23 15:00 11/19/23 15:00 Temperature Pulse Rate 77 Pulse Rate [Left P ulse Oximeter] 74 Respiratory Rate 18 18 Blood Pressure [Le ft Arm] Pulse Oximetry 93 Oxygen Delivery Me od Room Air 11/19/23 15:00 11/19/23 16:00 11/19/23 19:00 Temperature 98.3 F 98.1 F Pulse Rate Pulse Rate [Left P ulse Oximeter] 74 74 72 Respiratory Rate 18 18 Blood Pressure [Le ft Arm] 135/75 143/96 H Pulse Oximetry 94 94 Oxygen Delivery Me od Room Air Room Air 11/19/23 20:00 11/19/23 23:00 11/19/23 23:20 Temperature Pulse Rate 59 L Pulse Rate [Left P ulse Oximeter] 72 74 Respiratory Rate 18 Blood Pressure [Le ft Arm] Pulse Oximetry Oxygen Delivery Me thod 11/19/23 23:45 11/19/23 23:46 11/19/23 23:46 Temperature 96.1 F L Pulse Rate Pulse Rate [Left P ulse Oximeter] 74 74 Respiratory Rate 18 18 Blood Pressure [Le ft Arm] 136/57 L Pulse Oximetry 96 [facility] 11/20/23 03:00 11/20/23 04:00 11/20/23 07:00 Temperature 96.6 F L 98.5 F Pulse Rate Pulse Rate [Left P ulse Oximeter] 67 67 64 Respiratory Rate 16 20 Blood Pressure [Le ft Arm] 125/52 L 155/70 H Pulse Oximetry 96 96 Oxygen Delivery Me od Room Air Room Air 11/20/23 07:00 11/20/23 07:00 11/20/23 08:00 Temperature Pulse Rate Pulse Rate [Left P ulse Oximeter] 64 72 Respiratory Rate 20 20 Blood Pressure [Le ft Arm] Pulse Oximetry 96 [facility] 11/20/23 09:34 11/20/23 11:00 11/20/23 12:00 Temperature 99.0 F Pulse Rate 78 Pulse Rate [Left P ulse Oximeter] 72 72 Respiratory Rate 18 Blood Pressure [Le ft Arm] 139/83 Pulse Oximetry 97 Oxygen Delivery Me od Room Air Progress Note: Quality Stroke Onset of Symptoms Date: 11/17/23 Symptom Onset Unknown: Yes
[2023-11-21] VITALS (12 sets, daily range): BP systolic 138–160; BP diastolic 72–89; PULSE 63–84; RESP 16–20; TEMP 35.9–36.9; O2SAT 94–97
--- NOTE | 2023-11-21 06:48 | PC.NURSE ---
End of shift note [id number]: Pt noted to be alert & oriented x 4 and able to make needs known. She is transferring/ambulating with assist of 1 using walker and gait belt. OMAIRA. Pt has been denying pain when asked throughout the shift. Pt has been afebrile throughout the shift. She remains on permissive HTN protocol. Pt has been continent of bladder this shift. ?
[2023-11-21] MEDS: COENZYME Q10 100 MG CAPSULE PO (09:11)
[2023-11-21] MEDS: CLOPIDOGREL 75 MG TABLET PO (09:11)
[2023-11-21] MEDS: AMLODIPINE 5 MG TABLET PO (09:11)
[2023-11-21] MEDS: EZETIMIBE 10 MG TABLET PO (09:12)
--- NOTE | 2023-11-21 11:56 | NUTR.NU ---
RDN with nutrition screen for low fat/low cholesterol diet. [employer] completed evaluation and is recommending regular texture/consistency. Patient reports a good appetite and intakes have been adequate and stable with eating on average 75-100% of most meals since admission. Weight stable per patient report and per weight records. Current weight is at 125lbs 11/21/23 with BMI 25.4 kg/m2. Per weight records weight was 123lbs 05/10/23. Heart healthy diet education provided.Patient declined verbal education for designated caregiver and will pass along the handout provided. Discussed following a Mediterranean-style diet using the plate method that includes ? plate non-starchy vegetables and fruit, ? plate whole grains/starch, ? plate healthy protein (fish, poultry, legumes, nuts/seeds), and healthy fats. Discussed limiting saturated fat and sodium intake. Handouts provided to support discussion. RDN contact information provided and encouraged patient to call with questions. RDN to follow up as needed.
--- NOTE | 2023-11-21 13:45 | PC.NURSE ---
End of Shift Note: Patient has done well today. She has been up in the chair most of this shift. She has had SBA to ambulate to the bathroom without difficulty. No complaints of pain. Did do some educations on her medications as she had some questions regarding her blood pressure medications. will continue to monitor until next shift arrives.
--- NOTE | 2023-11-21 13:56 | PC.SOCIAL ---
Pt. has been accepted to [facility] for tomorrow pending insurance authorization. Pt.'s daughter Sheba will transport and arrive at 10am.
[2023-11-21] MEDS: LOSARTAN POTASSIUM 50 MG TABLET 100 MG PO (14:39)
--- NOTE | 2023-11-21 19:53 | PC.NURSE ---
Nursing Care Hours: [id number] Pt this shift calm and cooperative, alert and oriented. SB assist to bathroom. No c/o pain. VSS. Tolerating meal.
[2023-11-22] VITALS: PULSE 63
[2023-11-22 03:00] VITALS: BP 162/77; PULSE 71; RESP 16; TEMP 36.9; O2SAT 97
[2023-11-22 04:00] VITALS: PULSE 71
--- NOTE | 2023-11-22 06:35 | PC.NURSE ---
End of shift note : Pt alert & oriented x 4 and able to make needs known. She is transferring/ambulating with SBA using gait belt and FWW. VSS and pt has been afebrile. PERRLA. Pt has been denying pain when asked throughout the shift. Pt continent of bladder. ?
[2023-11-22 08:00] VITALS: BP 147/78; PULSE 64; RESP 18; TEMP 36.8; O2SAT 95; O2SAT 99
--- NOTE | 2023-11-22 08:06 | PM.DS1 ---
DS: Providers Provider Time Seen by Provider: 07:20 Date Seen: 11/22/23 Date of admission: 11/18/23 11:22 Primary care physician: Angeline Sim DO Admitting Clinician: Libby Tran MD Consults: 11/17/23 22:09 Consult to Physical Therapy [CONS] Routine Comment: Reason(s) for PT Consult:: Evaluate and Treat Any Restrictions?:: No Restrictions 11/17/23 22:11 Consult to Occupational Therapy [CONS] Routine Comment: Reason(s) for OT Consult:: Evaluate and Treat Any Restrictions?:: No Restrictions 11/18/23 13:51 Consult to Speech Therapy [CONS] Routine Comment: Reason(s) for Speech Consult:: Speaking Difficulty Attending Physician on discharge: Libby Tran MD Date of Discharge: 11/22/23 DS: Diagnosis Discharge Diagnosis (1) Ischemic stroke: Status: Acute Problem details: - Left leg weakness initially associated with garbled speech, which has resolved. Now persistent ataxia, facial droop, left arm weakness, and left leg weakness. - Due to unknown time of symptom onset, she was not a candidate for TPA. - Aspirin given in ER. - CT and CTA done, results above. ER provider d/w Dr. Nails from stroke neuro. - MRI brain shows stroke. ECHO complete. Results discussed with patient and daughter. Appreciate stroke neuro's recommendations - Allowed for permissive HTN for 72 hours (held home losartan and amlodipine). - Patient has previously not tolerated atorvastatin due to myalgias, so these were discontinued when she was 68y/o. Due to this I did not start a statin. Lipids elevated. Zetia started 11/19. - Speech therapy, PT, OT consulted. - Continue Speech, PT and OT at rehab. She lives independently with 7 steps up to bathroom on 2nd floor (no bathroom on main floor). (2) Hypercholesterolemia: Status: Chronic Problem details: - previously intolerant to statins. Lipid panel abnormal. Zetia started 11/19. (3) Chronic kidney disease, stage III (moderate): Status: Chronic Problem details: - baseline Cr 0.8-0.9 - stable (4) HTN (hypertension): Status: Chronic Problem details: - allowed for permissive hypertension for 72 hours. Restarting home meds. (5) Normochromic anemia: Status: Acute Problem details: - Stable at 11.2 (6) Chronic diastolic heart failure: Status: Acute Problem details: - Grade 1 diastolic dysfunction - Stable, chronic - ECHO 11/18/23 unchanged from 01/20/21. DS: Summary Hospital Course Hospital Course: This is an 83-year-old female who presented with left leg weakness and garbled speech. Garbled speech resolved prior to her getting to the emergency department. Time of onset was unknown, so she was not a candidate for tPA. Stroke symptoms did evolve ultimately with ataxia, left lower facial weakness, left arm and leg weakness. Please see diagnoses above for full details. She is discharged to rehab at [facility] today in stable condition. Time Spent with Patient Time attestation: Total time spent providing and/or coordinating discharge services: Exam Narrative: Exam Narrative: General: No acute distress. Awake alert oriented. Cardiovascular: Regular rate and rhythm. No murmurs, gallops, or rubs. Chest: No increased work of breathing. Clear to auscultation bilaterally. No crackles or wheezes. Neuro: Left lower facial droop persists. Cranial nerves 2-12 are otherwise intact. Tongue is midline. Left arm and leg strength are slightly diminished, 4+/5, improving. Strength of R arm and leg are 5/5. Const: Vital Signs, click to edit/add: Vital Signs - 24 hr 11/21/23 11:00 11/21/23 12:00 11/21/23 14:38 Temperature 96.6 F L Pulse Rate [Left P ulse Oximeter] 77 77 84 Respiratory Rate 20 20 Blood Pressure [Le ft Arm] 160/77 H 147/76 H Pulse Oximetry 94 96 Oxygen Delivery In thod Room Air Room Air 11/21/23 15:00 11/21/23 15:00 11/21/23 16:00 Temperature Pulse Rate [Left P ulse Oximeter] 73 73 Respiratory Rate 20 20 Blood Pressure [Le ft Arm] Pulse Oximetry 94 [facility] 11/21/23 19:00 11/21/23 20:00 11/21/23 23:00 Temperature 98.4 F Pulse Rate [Left P ulse Oximeter] 72 72 72 Respiratory Rate 18 18 Blood Pressure [Le ft Arm] 148/75 H Pulse Oximetry 95 [facility] 11/21/23 23:00 11/21/23 23:00 11/22/23 00:00 Temperature 97.2 F L Pulse Rate [Left P ulse Oximeter] 63 63 Respiratory Rate 16 16 Blood Pressure [Le ft Arm] 141/75 H Pulse Oximetry 96 96 Oxygen Delivery Me thod Room Air Room Air 11/22/23 03:00 11/22/23 04:00 Temperature 98.4 F Pulse Rate [Left P ulse Oximeter] 71 71 Respiratory Rate 16 Blood Pressure [Le ft Arm] 162/77 H Pulse Oximetry 97 Oxygen Delivery Me thod Room Air DS: Data Data Completed and Pending Completed studies during hospitalization: 11/17/2023 EKG: Normal sinus rhythm, 60 beats per minute, minimal voltage criteria for LVH, maybe normal variant. Nonspecific T-wave abnormality. 11/18/2023 echocardiogram: Normal LV size, normal wall thickness, hyperdynamic global systolic function with an estimated EF of greater than 75%. Right ventricular cavity size is normal, global systolic RV function is normal. Grade 1 pattern of LV diastolic filling. No significant valve disease detected. Ordering Physician: García Modi D.O. Date of Service: 11/17/23 Procedure(s): CT head/brain wo [facility] Accession Number(s): [id number] cc: García Modi D.O.; Angeline Sim D.O.~ For Patients: As a result of the Cures Act, medical imaging exams and procedure reports are released immediately into your electronic medical record. You may view this report before your referring provider. If you have questions, please contact your health care provider. Indication: Left leg heaviness Technique: Volumetric multidetector CT images of the head were obtained without the administration of low osmolar intravenous contrast. Comparison: None available Findings: There is no intra-axial or extra-axial fluid collection. There is no mass effect or midline shift. There is age-related cortical atrophy with mild sulcal widening and ex vacuo dilatation of the lateral ventricles. There are chronic small vessel disease changes in the subcortical and periventricular white matter without lost perez-white differentiation. The orbits and their contents are grossly within normal limits. The bony calvarium is grossly intact. The paranasal sinuses are clear. The mastoid air cells are well aerated. Impression: 1. Age-related changes of the brain without acute intracranial abnormality. A negative head report was sent to Dr. Nails at 7:36 p.m. November 17, 20[address] note that all CT scans at this facility use dose modulation, iterative reconstruction, and/or weight-based dosing when appropriate to reduce radiation dose to as low as reasonably achievable. Dictated by Wan Tan MD @ 11/17/2023 7:40:39 PM (Electronically Signed) Ordering Physician: García Modi D.O. Date of Service: 11/17/23 Procedure(s): CT angio head Accession Number(s): [id number] cc: García Modi D.O.; Angeline Sim D.O.~ For Patients: As a result of the Century Cures Act, medical imaging exams and procedure reports are released immediately into your electronic medical record. You may view this report before your referring provider. If you have questions, please contact your health care provider. DATE: 11/17/2023 CLINICAL HISTORY: Patient with focal neurological deficits. TECHNIQUE: Standard helical CT image acquisition through the intracranial circulation following intravenous administration of contrast material with bolus tracking. 2D and 3D MIP images for post-processing were performed and interpreted on an independent workstation and 3D images were permanently archived. COMPARISON: CT same day. FINDINGS: There is no cerebral aneurysm or large vessel occlusion. There is intracranial atherosclerosis with focal severe right M2 and right P3 segment stenoses, as well as multifocal moderate stenoses in the right M1 and right P1 segments. The right vertebral artery is dominant. The basilar artery is patent and appears normal. The visualized venous structures are patent. IMPRESSION: 1. No cerebral aneurysm or large vessel occlusion. 2. Intracranial atherosclerosis with focal severe right M2 and right P3 segment stenoses, as well as multifocal moderate stenoses in the right M1 and right P1 segments. Please note that all CT scans at this facility use dose modulation, iterative reconstruction, and/or weight-based dosing when appropriate to reduce radiation dose to as low as reasonably achievable. Dictated by Lorraine Santana MD @ 11/17/2023 9:29:45 PM (Electronically Signed) Ordering Physician: García Modi D.O. Date of Service: 11/17/23 Procedure(s): CT angio neck Accession Number(s): [id number] cc: García Modi D.O.; Angeline Sim D.O.~ For Patients: As a result of the Cures Act, medical imaging exams and procedure reports are released immediately into your electronic medical record. You may view this report before your referring provider. If you have questions, please contact your health care provider. DATE: 11/17/2023 CLINICAL HISTORY: Patient with focal neurological deficits. TECHNIQUE: Standard helical CT image acquisition of the neck up to the skull base after bolus intravenous contrast enhancement. 2D and 3D MIP images for post-processing were performed and interpreted on an independent workstation and 3D images were permanently archived. COMPARISON: None. FINDINGS: The origins of the great vessels from the aortic arch are patent. The origin of the right vertebral artery is patent. The origin of the left vertebral artery is patent. The common carotid arteries are patent. There is a mild (<50%) stenosis at the origin of the right internal carotid artery by NASCET criteria. This is caused by calcified plaque with a <2mm residual lumen. There is plaque without stenosis at the origin of the left internal carotid artery by NASCET criteria. The rest of the cervical segments of the internal carotid arteries are patent up to the skull base. The right vertebral artery is dominant. The cervical segments of the vertebral arteries are patent up to the skull base. The visualized lung apices are unremarkable. The thyroid gland is unremarkable. The soft tissues of the neck are unremarkable. There are degenerative changes in the cervical spine. IMPRESSION: Mild (<50%) stenosis at the origin of the right internal carotid artery by NASCET criteria. This is caused by calcified plaque with a <2mm residual lumen. Please note that all CT scans at this facility use dose modulation, iterative reconstruction, and/or weight-based dosing when appropriate to reduce radiation dose to as low as reasonably achievable. Dictated by Lorraine Santana MD @ 11/17/2023 9:25:17 PM (Electronically Signed) Ordering Physician: Libby Tran M.D. Date of Service: 11/18/23 Procedure(s): MR head/brain wo con Accession Number(s): [id number] cc: Libby Tran M.D.; Angeline Sim D.O.~ For Patients: As a result of the Cures Act, medical imaging exams and procedure reports are released immediately into your electronic medical record. You may view this report before your referring provider. If you have questions, please contact your health care provider. Indication: Left leg weakness, speech changes. Technique: Multisequence multiplanar MRI of the brain without the use of intravenous contrast. Comparison: Correlated with CT head dated 11/17/2023. Findings: Focal diffusion restriction involving the posterior limb right internal capsule and right putamen consistent with acute ischemia. Minimal associated T2/FLAIR hyperintensity. Scattered as well as confluent additional T2 prolongation within the supratentorial white matter typical of chronic small vessel ischemic changes. Punctate focus of susceptibility artifact in the right subinsular region. Mild diffuse parenchymal volume loss. No ventricular obstruction. Flow voids of the larger intracranial arteries are preserved. Normal calvarial bone marrow signal intensity. Bilateral pseudophakia. Mild diffuse paranasal sinus mucosal thickening. Impression: 1. Diffusion restriction involving the posterior limb right internal capsule and right putamen consistent with acute ischemia. Minimal associated T2/FLAIR hyperintensity suggests time course of less than 6 hours. No evidence of hemorrhagic conversion. 2. Mild diffuse parenchymal volume loss and moderate chronic small vessel ischemic changes. 3. Punctate focus of susceptibility in the right subinsular region consistent with sequela of prior microhemorrhage. 4. Mild diffuse paranasal sinus mucosal thickening. Findings were discussed with Dr. Tran on 11/18/2023 at 11:07 a.m.. Dictated by Olman Grace MD @ 11/18/2023 11:07:53 AM (Electronically Signed) Discharge Plan Discharge Disposition: [facility] Discharge Location: [facility] Date of Admission: 11/18/23 11:22 Attending Provider on Discharge: Libby Tran Primary Care Provider: Angeline Sim Condition: Stable Discharge Medications: New clopidogrel 75 mg Tablet 75 mg PO DAILY Qty: 30 0RF ezetimibe 10 mg Tablet 10 mg PO DAILY Qty: 30 0RF Continued alendronate 70 mg tablet 70 mg PO Q7D Patient Comments: PLEASE SEE ATTACHED FOR DETAILED DIRECTIONS; takes on SUNDAYS amlodipine 5 mg tablet 5 mg PO DAILY calcium carbonate 600 mg calcium (1,500 mg) tablet 300 mg PO DAILY cholecalciferol (vitamin D3) 1 tab PO DAILY coenzyme Q10 100 mg capsule 100 mg PO DAILY docusate sodium [Colace] 100 mg capsule 100 mg PO DAILY Changed losartan 100 mg tablet 100 mg PO DAILY@1500 Qty: 30 0RF Discontinued aspirin 81 mg tablet 81 mg PO DAILY Discharge Orders: Discharge Order (Routine); Ordered 11/22/23 Ordered By: Libby Tran Additional Instructions: Follow-up in stroke clinic in 1 to 2 months Activity Level: Up with assist Discharge Diet: Low Fat/Low Cholesterol Follow Up Appointments: Angeline Sim DO [Primary Care Provider] - [facility] Discharge Potential: Good Length of Stay: <30 days Can use facility standing orders?: Yes Code Status: DNR/DNI TEDs: Bilateral Knee Rehab Potential: Good Therapy: Physical Therapy, Occupational Therapy and Speech Therapy Therapy Orders: Evaluate and Treat Oxygen: No Urinary Catheter: No Orders are good >30 days: No Signature: Libby Tran MD
[2023-11-22] MEDS: EZETIMIBE 10 MG TABLET PO (08:51)
[2023-11-22] MEDS: AMLODIPINE 5 MG TABLET PO (08:51)
[2023-11-22] MEDS: COENZYME Q10 100 MG CAPSULE PO (08:51)
[2023-11-22] MEDS: CLOPIDOGREL 75 MG TABLET PO (08:52)
[2023-11-22 09:00] VITALS: PULSE 64
--- NOTE | 2023-11-22 10:02 | PC.SOCIAL ---
Discharge planning: Pt has been accepted to [facility] for admission today. Dtr is at the hospital ready to transport pt at discharge. Waiting on prior authorization from insurance for rehab stay. Met with pt and dtr and updated them on this process. Dtr states she is available all day to transport pt to [facility] when prior authorization is received. shop worker to follow up as needed.
[2023-11-22 11:05] VITALS: BP 149/80; PULSE 75; RESP 20; O2SAT 94
--- NOTE | 2023-11-22 12:16 | PC.NURSE ---
Discharge: Patient pleasant and cooperative. Up with SBA and gait belt, up in halls walking with staff. Vitals stable and WNL. Tolerating regular diet, denies nausea, no difficulty with swallowing or chewing noted. No IV present at time of discharge. Patient d/c via wheelchair @ 1209, family to drive to [facility]. Nurse to nurse report given to Hailee SARKAR.
--- NOTE | 2023-11-23 15:07 | PM.IMPN1 ---
Progress Note: A&P Assessment and plan (1) Ischemic stroke: Problem details: - Left leg weakness initially associated with garbled speech, which has resolved. Now persistent ataxia, facial droop, left arm weakness, and left leg weakness. - Due to unknown time of symptom onset, she was not a candidate for TPA. - Aspirin given in ER. - CT and CTA done, results above. ER provider d/w Dr. Nails from stroke neuro. - MRI brain shows stroke. ECHO complete. Results discussed with patient and daughter. Appreciate stroke neuro's recommendations - Allowed for permissive HTN for 72 hours (held home losartan and amlodipine). - Patient has previously not tolerated atorvastatin due to myalgias, so these were discontinued when she was 68y/o. Due to this I did not start a statin. Lipids elevated. Zetia started 11/19. - Speech therapy, PT, OT consulted. - Continue Speech, PT and OT at rehab. She lives independently with 7 steps up to bathroom on 2nd floor (no bathroom on main floor). Will need rehab; accepted at [place] for Tuesday. Status: Acute (2) Hypercholesterolemia: Problem details: - previously intolerant to statins. Lipid panel abnormal. Zetia started 11/19. Status: Chronic (3) HTN (hypertension): Problem details: - allow for permissive hypertension for 72 hours. Status: Chronic Subjective Date Seen: 11/21/23 Interval history: Sarah has no new complaints. Exam Narrative: Exam Narrative: General: No acute distress. Awake alert oriented. Cardiovascular: Regular rate and rhythm. No murmurs, gallops, or rubs. Chest: Clear to auscultation bilaterally. No crackles or wheezes. Neuro: Left lower facial droop persists. Cranial nerves 2-12 are otherwise intact. Tongue is midline. Left arm and leg strength are slightly diminished, 4+/5, improving. Strength of R arm and leg are 5/5. Const: Vital Signs, click to edit/add: Vital Signs - 24 hr 11/21/23 11:00 11/21/23 12:00 11/21/23 14:38 Temperature 96.6 F L Pulse Rate [Left P ulse Oximeter] 77 77 84 Respiratory Rate 20 20 Blood Pressure [Le ft Arm] 160/77 H 147/76 H Pulse Oximetry 94 96 Oxygen Delivery Me thod Room Air Room Air 11/21/23 15:00 11/21/23 15:00 11/21/23 16:00 Temperature Pulse Rate [Left P ulse Oximeter] 73 73 Respiratory Rate 20 20 Blood Pressure [Le ft Arm] Pulse Oximetry 94 Oxygen Delivery Me thod Room Air 11/21/23 19:00 11/21/23 20:00 11/21/23 23:00 Temperature 98.4 F Pulse Rate [Left P ulse Oximeter] 72 72 72 Respiratory Rate 18 18 Blood Pressure [Le ft Arm] 148/75 H Pulse Oximetry 95 Oxygen Delivery Me thod Room Air 11/21/23 23:00 11/21/23 23:00 11/22/23 00:00 Temperature 97.2 F L Pulse Rate [Left P ulse Oximeter] 63 63 Respiratory Rate 16 16 Blood Pressure [Le ft Arm] 141/75 H Pulse Oximetry 96 96 Oxygen Delivery Me thod Room Air Room Air 11/22/23 03:00 11/22/23 04:00 Temperature 98.4 F Pulse Rate [Left P ulse Oximeter] 71 71 Respiratory Rate 16 Blood Pressure [Le ft Arm] 162/77 H Pulse Oximetry 97 Oxygen Delivery Me thod Room Air Progress Note: Quality Stroke Onset of Symptoms Date: 11/17/23 Symptom Onset Unknown: Yes
== END 2023-11-22 12:09 | DRG 65 ==
LOC: ED 20:34 → MEDSURG 21:10
PROVIDERS: Admitting Provider Family Medicine; Emergency Provider Student in an Organized Health Care Education/Training Program; PCP Family Medicine; Visit Provider Family Medicine
DX: I63.531 Cerebral infarction due to unspecified occlusion or stenosis of right posterior cerebral artery (principal); C7B.8 Other secondary neuroendocrine tumors; G81.94 Hemiplegia, unspecified affecting left nondominant side; I13.0 Hypertensive heart and chronic kidney disease with heart failure and stage 1 through stage 4 chronic kidney disease, or unspecified chronic kidney disease; I50.32 Chronic diastolic (congestive) heart failure; R47.89 Other speech disturbances; R27.0 Ataxia, unspecified; R29.810 Facial weakness; E78.00 Pure hypercholesterolemia, unspecified; N18.30 Chronic kidney disease, stage 3 unspecified; D64.9 Anemia, unspecified
CPT/HCPCS: 36415; 70450; 70496; 70498; 70551; 80053; 80061; 81001; 82565; 82947; 83735; 84484; 85025; 87086; 87186; 87631; 92523; 93005; 93306; 94761; 97110; 97112; 97116; 97162; 97165; 97530; 97535; 99283; 99285; G0378; A9270; Q9967

== ENCOUNTER 2024-02-21 20:43 | Emergency (ER) | payer MEDICARE, SELFPAY ==
[2024-02-21 20:52] VITALS: BP 189/69; PULSE 82; RESP 18; TEMP 36.7; O2SAT 96; BMI 25.9
--- NOTE | 2024-02-21 21:07 | ED.GENADULT ---
HPI - General Adult General Chief complaint: Diarrhea Stated complaint: diarrhea - sent from Time Seen by Provider: 02/21/24 21:02 History of Present Illness HPI narrative: pt reports having diarrhea for past two weeks. Pt was seen at Urgent Care, pt was told has low hemoglobin. provider was concerned about pt having internal bleeding. Diarrhea is fowl smelling and icky brown in color. 84-year-old woman presenting to the emergency department with concern of 2 weeks of diarrhea. Sister visited in December apparently has colitis. Started off with much more frequent diarrhea but now less and has been taking some Imodium as recommended by her sister. Last diarrhea bowel movement was actually more like oatmeal she says. Has had a few days of here and there of relatively normal stools. Called to make an appointment with her primary but was recommended for evaluation prior to that. 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 Cbc was done apparently at urgent care and noting hemoglobin of 9.9 as far as I can determine. Concerns of internal bleeding were discussed and recommended to be seen in the emergency department and that thought to be too weak and unsteady to be safe at home where she typically lives independently. Enquiring more about this lightheadedness, Mrs. Alberto reports that she always feels a little lightheaded, seems to be describing somewhat orthostatics symptoms, has been chronic as addressed with primary care provider. Otherwise feels in usual state of health. She is not having any abdominal pain. No fevers. No shortness of breath. Related Data Home Medications ?Medication ?Instructions ?Recorded ?Confirmed alendronate 70 mg tablet 70 mg PO Q7D 04/06/23 02/21/24 amlodipine 5 mg tablet 5 mg PO DAILY 04/06/23 02/21/24 calcium carbonate 300 mg PO DAILY 05/05/23 02/21/24 cholecalciferol (vitamin D3) 1 tab PO DAILY 05/05/23 02/21/24 coenzyme Q10 100 mg capsule 100 mg PO DAILY 05/05/23 02/21/24 docusate sodium 100 mg capsule 100 mg PO DAILY 05/05/23 02/21/24 (Colace) Previous Rx's ?Medication ?Instructions ?Recorded clopidogrel 75 mg tablet 75 mg PO DAILY #30 tabs 11/22/23 ezetimibe 10 mg tablet 10 mg PO DAILY #30 tabs 11/22/23 losartan 100 mg tablet 100 mg PO DAILY@1500 #30 tabs 11/22/23 Allergies Allergy/AdvReac Type Severity Reaction Status Date / Time phenytoin Allergy Severe Seizure Verified 02/21/24 18:13 VALENTINA Inhibitors AdvReac Unknown Cough Verified 02/21/24 18:13 Review of Systems Status of ROS: Reports: 6 or more systems reviewed and unremarkable except as noted in History and below [facility] Medical History Normochromic anemia ?D64.9 - Anemia, unspecified (ICD-10) Chronic diastolic heart failure ?I50.32 - Chronic diastolic (congestive) heart failure (ICD-10) 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 - Other secondary neuroendocrine tumors (ICD-10) Paroxysmal SVT (supraventricular tachycardia) ?I47.10 - Supraventricular tachycardia, unspecified (ICD-10) Age-related osteoporosis without current pathological fracture ?M81.0 - Age-related osteoporosis without current pathological fracture (ICD-10) Pulmonary nodules ?R91.8 - Other nonspecific abnormal finding of lung field (ICD-10) Spondylosis of cervical region without myelopathy or radiculopathy ?M47.812 - Spondylosis without myelopathy or radiculopathy, cervical region (ICD-10) Myalgia ?M79.10 - Myalgia, unspecified site (ICD-10) VALENTINA-inhibitor cough ?R05.8 - Other specified cough (ICD-10) ?T46.4X5A - Adverse effect of appslxxxkuo-idjhmkowud-hovqbr inhibitors, initial encounter (ICD-10) SI joint arthritis ?M47.818 - Spondylosis without myelopathy or radiculopathy, sacral and sacrococcygeal region (ICD-10) LVH (left ventricular hypertrophy) ?I51.7 - Cardiomegaly (ICD-10) Uterine prolapse ?N81.4 - Uterovaginal prolapse, unspecified (ICD-10) Abnormal glucose ?R73.09 - Other abnormal glucose (ICD-10) Vitamin D deficiency ?E55.9 - Vitamin D deficiency, unspecified (ICD-10) Chronic kidney disease, stage III (moderate) ?N18.30 - Chronic kidney disease, stage 3 unspecified (ICD-10) Hypercholesterolemia ?E78.00 - Pure hypercholesterolemia, unspecified (ICD-10) Echocardiogram abnormal ?R93.1 - Abnormal findings on diagnostic imaging of heart and coronary circulation (ICD-10) HTN (hypertension) ?I10 - Essential (primary) hypertension (ICD-10) Ovarian mass ?N83.8 - Other noninflammatory disorders of ovary, fallopian tube and broad ligament (ICD-10) Pancreatic mass ?K86.89 - Other specified diseases of pancreas (ICD-10) Surgical History H/O hernia repair ?Z98.890 - Other specified postprocedural states (ICD-10) ?Z87.19 - Personal history of other diseases of the digestive system (ICD-10) History of lumpectomy of right breast ?Z98.890 - Other specified postprocedural states (ICD-10) Hx of tonsillectomy ?Z90.89 - Acquired absence of other organs (ICD-10) History of open reduction and internal fixation (ORIF) procedure ?Z98.890 - Other specified postprocedural states (ICD-10) History of left knee replacement ?Z96.652 - Presence of left artificial knee joint (ICD-10) History of right hip replacement ?Z96.641 - Presence of right artificial hip joint (ICD-10) Hx of hysterectomy ?Z90.710 - Acquired absence of both cervix and uterus (ICD-10) Hx of bilateral cataract extraction ?Z98.41 - Cataract extraction status, right eye (ICD-10) ?Z98.42 - Cataract extraction status, left eye (ICD-10) History of appendectomy ?Z90.49 - Acquired absence of other specified parts of digestive tract (ICD-10) History of radiofrequency ablation (RFA) procedure for cardiac arrhythmia ?Z98.890 - Other specified postprocedural states (ICD-10) S/P hysterectomy ?Z90.710 - Acquired absence of both cervix and uterus (ICD-10) Family History Sister Breast cancer Brother Coronary artery disease High blood pressure Father Coronary artery disease Myocardial infarction Social History Narrative: Patient lives independently. 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 What is your current living situation?: I presently have a place to live Problems where you live: no known problems Problems where you live details: N/A In the past 12 months, utilities in danger of being shut off: no In past 12 months, lack of transportation kept you from medical appts, meetings, work, or getting things needed for daily living: no In the past 12 mos, have been you worried that your food would run out before you had money to buy more?: never true In the past 12 mos, the food you bought just didn't last and you didn't have money to buy more?: never true Highest level of school completed/degree received: 12th grade, no diploma Smoking Status: Never smoker Do you use any of these nicotine containing products: None Second hand tobacco smoke exposure: No How often do you have a drink containing alcohol: never AUDIT-C Alcohol total score: 0 Non-prescribed substance use: denies use Caffeine: Yes How often does anyone, including family, friends and others, physically hurt you: never How often does anyone, including family, friends and others, insult or talk down to you: never How often does anyone, including family, friends and others, threaten you with harm: never How often does anyone, including family, friends and others, scream or curse at you: never Are you using contraception or practicing any form of control: No service: No Exam Narrative: Exam Narrative: Very pleasant. NAD. Jace in description, conversation. Breathing easily. Heart in regular rate and rhythm. Abdomen a little protuberant, soft and nontender. Skin is warm and dry. Trace lower extremity dependent edema, nonpitting. Cranial nerves 2-12 intact. Appears to be moving all extremities without difficulty. Const: Vital Signs, click to edit/add: Vital Signs - 24 hr 02/21/24 20:52 Temperature 98.0 F Pulse Rate [Left P ulse Oximeter] 82 Respiratory Rate 18 Blood Pressure [Ri ght Upper Arm] 189/69 H Pulse Oximetry 96 Oxygen Delivery Me thod Room Air Documenting provider has reviewed patient's vital signs: yes Course Vital Signs Vital signs: Initial Vital Signs Temperature 98.0 F 02/21/24 20:52 Temperature Source Temporal Artery Scan 02/21/24 20:52 Pulse Rate 82 02/21/24 20:52 Pulse Rhythm Regular 10/08/24 20:52 Respiratory Rate 18 02/21/24 20:52 Blood Pressure 189/69 H 02/21/24 20:52 Blood Pressure Mean 109 H 02/21/24 20:52 Blood Pressure Position Sitting 02/21/24 20:52 Pulse Oximetry 96 02/21/24 20:52 Oxygen Delivery Method Room Air 02/21/24 20:52 Vital Signs Temperature 98.0 F 02/21/24 20:52 Pulse Rate 82 02/21/24 20:52 Respiratory Rate 18 02/21/24 20:52 Blood Pressure 189/69 H 02/21/24 20:52 Pulse Oximetry 96 02/21/24 20:52 Oxygen Delivery Method Room Air 02/21/24 20:52 Temperature 98.0 F 02/21/24 20:52 Pulse Rate 82 02/21/24 20:52 Respiratory Rate 18 02/21/24 20:52 Blood Pressure 189/69 H 02/21/24 20:52 Pulse Oximetry 96 02/21/24 20:52 Oxygen Delivery Method Room Air 02/21/24 20:52 Medical Decision Making MDM Narrative Medical decision making narrative: I did spend some time reviewing record. Three months ago hemoglobin was 11.3 and last year around this time actually was 10.5. May be having some mild hemoglobin drift and possibly related to some irritation with recent diarrhea in the setting of recent Plavix. I would not discontinue Plavix however. Was sent from urgent care with stool collection kit. Overall seems to be improved with regard to diarrhea. I would not intervene at this time pending stool culture. Doubtful C diff given definition of stools. Overall seems at baseline. Demonstrated ability to ambulate with her usual cane about the emergency department without apparent difficulty. I think can be safely discharged home without further evaluation. See patient discharge plan for further discussion Medical Records Medical records reviewed: Yes I reviewed the patient's medical records Discharge Plan Discharge Clinical Impression: Anemia, Orthostatic lightheadedness Patient Disposition: Home w/ Parent or Adult Condition: Stable Instructions: Anemia (ED) Additional Instructions: Take care in transitions. Yes, I would follow-up with your primary care clinic/provider to consider further evaluation for this drifting hemoglobin. Can continue with Imodium I think as needed; as long as not having a fever or seeing blood in your stool. I would also take in a sample of your stool if continues to be diarrheal. Prescriptions: No Action alendronate 70 mg tablet 70 mg PO Q7D Patient Comments: PLEASE SEE ATTACHED FOR DETAILED DIRECTIONS; takes on SUNDAYS amlodipine 5 mg tablet 5 mg PO DAILY calcium carbonate 600 mg calcium (1,500 mg) tablet 300 mg PO DAILY cholecalciferol (vitamin D3) 1 tab PO DAILY coenzyme Q10 100 mg capsule 100 mg PO DAILY docusate sodium [Colace] 100 mg capsule 100 mg PO DAILY clopidogrel 75 mg Tablet 75 mg PO DAILY Qty: 30 0RF ezetimibe 10 mg Tablet 10 mg PO DAILY Qty: 30 0RF losartan 100 mg tablet 100 mg PO DAILY@1500 Qty: 30 0RF Follow Up/Referrals: Angeline Sim DO [Primary Care Provider] - Stand Alone Forms: [employer] Info Instructions
--- OUTSIDE RECORDS SUMMARY | 2024-02-21 21:39 | XMS_ITS | Continuity of Care Document ---
Author Organization [facility] Address [address] [address] [place] [address] Phone Care Team Providers Care Rural Carrier Associate Name Role Phone Unavailable Unavailable Unavailable Allergies, [...] on Encounter Offic/outpt E&m Estab Mod-hi 2 [facility], [address] [address], [place], [id number], [place] tel:[phone] [facility] GI Symptoms or Concerns (chief complaint) Pancreas cystGeneralized abdominal painRight ovarian cyst 2 No Information Referring Provider: Referral Self, USE FOR SELF REFERRALS. [facility], [address] [address], [place], [id number], [place] tel:[phone] [facility] Pancreas cyst Jan-0 1 Oscar Melednez [address] [facility] [address], [place], [id number], [place]. tel:[phone] [facility], [address] [address], [place], [id number], [place] tel:[phone] [employer] No Information 1 Oscar Melendez [address] [facility], [facility] [address], [place], [place], [id number], [place]. tel:[phone] Referring Provider: Kandis Moore MD, [address] [facility] [address], [place], [address] . tel:[phone] [facility], [address] [address], [place], [id number], [place] tel:[phone] [facility] No Information 1 Oscar Melendez [address] [facility], [facility] [address], [place], [id number], [place]. tel:[phone] Family History Family Member Type Diagnosis Age [...] ional interface ; Source: Other Registry Novel [id number], injectable administered Note: [facility] bi-direct ional interface [...] name Insurance type Covered alliance party ID Authorchua tiálvaro(s) [employer] Medicare Advantage [id number] Social History Type Description Quantity Date [...]
--- OUTSIDE RECORDS SUMMARY | 2024-02-21 21:39 | XMS_ITS | Clinical Summary ---
Author Organization [facility] Address [address] [place] [address] Care Team Providers Care Branch Banker Name Role Phone MihaelaverafigueroaAngeline Donavan HOLLOWAY Primary Care Provider [phone] Allergies Active Allergy Reactions Criticality Noted Date [...] carotid artery s urgery Heart Disease Father [place] Circulatory Mother hypotension Relation Status Comments Brother [...] CDT Plan of Treatment Not on file Care Teams Branch Banker Relationship Specialty [place] [address] [place] [address] PCP - General Family Medicine 12/31/20
--- OUTSIDE RECORDS SUMMARY | 2024-02-21 21:39 | XMS_ITS | Referral Summary ---
Author Organization [facility] Address [address] [place] [address] Care Team Providers Care Production Supervisor Name Role Phone MihaelaverafigueroaGerardodylan Go DO Primary Care Provider [phone] Allergies Active Allergy Reactions Criticality Noted Date [...] of Treatment Not on file Care Teams Production Supervisor Relationship Specialty [place] [address] [place] [address] PCP - General Family Medicine 12/31/20
--- OUTSIDE RECORDS SUMMARY | 2024-02-21 21:39 | XMS_ITS | Clinical Summary ---
Author Organization [facility] Address [place], [place] [address] Care Team Providers Care Construction Producer Name Role Phone ChiquisAngeline Stephanie Primary Care Provider Monik Sotelo MD Unavailable [phone] Denise Cisse NP Unavailable Allergies Active Allergy Reactions Criticality Noted Date Comments Ricardo Inhibitors Cough 11/17/2023 Phenytoin Rash,Seizures High 03/15/2012 Medications Medication Sig [...] 2 MONTHS 42.5 g 1 07/28/2022 Active alendronate (FOSAMAX) 70 mg tabletIndications:A ge-related [...] once daily. 90 Tablet 3 04/28/2023 Active clopidogreL (PLAVIX) 75 mg tabletIndications:C erebrovascular accident (CVA) due to stenosis of precerebral artery (HC) Take 1 Tablet (75 mg) by mouth once daily. 90 Tablet 3 12/07/2023 Active ezetimibe (ZETIA) 10 mg tabletIndications:H ypercholesteremia Take 1 Tablet (10 mg) by mouth once daily. 90 Tablet 3 12/07/2023 Active losartan (COZAAR) 100 mg tabletIndications:E ssential hypertension TAKE 1 TABLET BY MOUTH EVERY DAY 90 Tablet 12/20/2023 Active ipratropium (ATROVENT NASAL) 21 mcg (0.03 %) nasal sprayIndications:Ch ronic rhinitis Inhale 2 Sprays into affected nostril(s) three times daily. [place] dose in each nostril. 30 mL 11 01/09/2024 Active lansoprazole (Prevacid) 30 mg capsuleIndications: Chronic cough Take 1 Capsule (30 mg) by mouth once daily before a meal. 30 Capsule 01/09/2024 Active Active Problems Problem Noted Date Diagnosed Date Osteopenia of multiple sites 01/09/2024 Overview (01/09/2024): DEXA 2022. Started Fosamax. Heart block AV second degree 01/02/2024 Cerebrovascular accident (CV A) due to stenosis of precerebral artery 11/23/2023 Overview (11/23/2023): CVA 11/2023 Age-related osteoporosis wit hout current pathological fracture 12/24/2022 Overview (12/24/2022): DEXA 12/2015. Recommend initiating Fosamax with hip [...] I diastolic dysfunction 08/23/2018 Pancreatic mass 05/19/2018 Overview (05/19/2018): 11mm incidental mass on CT. Perform MRI abdomen/pelvis in 1 year (05/2019). Pulmonary nodules 05/18/2018 Overview (11/07/2020): Repeat chest CT in 12 months (10/2021). 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 Uterine prolapse 04/30/2015 Overview (04/30/2015): Cystocele and urethral insufficiency LVH (left ventricular hypertrophy) 04/30/2015 SI joint arthritis 04/30/2015 RICARDO-inhibitor cough 04/30/2015 Myalgia 04/30/2015 Vitamin D deficiency 04/10/2015 Chronic kidney disease, stage III (moderate) Abnormal glucose 04/10/2015 Postoperative anemia due to acute blood loss 09/2012 Osteoarthritis of hip 05/17/2012 Essential hypertension Hypercholesteremia Resolved Problems Problem Noted Date Diagnosed Date Resolved Date Sustained SVT 07/29/2017 01/05/2021 Osteopenia of multiple sites 01/14/2016 12/24/2022 Overview (05/31/2018): DEXA 12/2015. Recommend initiating Fosamax with hip FRAX 4.7. Total FRAX 19.6. T- score spine -2.1, T-score LFN -1.7. DEXA 05/18/18: T-scores AP: -1.7, LFN -2.1. Total FRAX 23.7. Hip FRAX 6.7% Recommend starting Fosamax. Patient declines. Repeat in 3-5 years. Encounters Date Type Department Care Team Description 02/21/2024 Nurse Triage [facility] [address] [place] [address] Angeline Sim DO Diarrhea 02/21/2024 Telephone [place] [address] [place] [address] Angeline Sim DO 01/19/2024 Telephone [place] [phone] [place] [address] Angeline Sim DO Form (PHYSICIAN'S ORDER) 01/09/2024 2:05 PM CDT Ancillary Procedure [place] [id number] [place] [address] 01/09/2024 1:20 PM CDT Office Visit [facility] [address] [place] [address] Angeline Sim DO Medicare ANNUAL (subsequent) Visit (83 yo ) 01/09/2024 Travel 01/05/2024 Telephone [facility] [address] [place] [address] Angeline Sim DO Form (PHYSICIAN ORDER) 01/05/2024 Telephone [facility] [address] [place] [phone] Shan Funk MD Consult 12/29/2023 Orders Only [facility] [address] [place] [address] Yanira Marie 2 scans: (2-Ord) FINAL REPORT, DOS 12/07/2023 12/29/2023 Refill [facility] [address] [place] [address] Angeline Sim DO Refill Request (Lansoprazole/) 12/26/2023 11:00 AM CDT Office Visit [facility] [address] [facility] [place] [address] Alfonzo Neal, OD Eye Exam (CEE) 12/26/2023 Travel 12/18/2023 Refill [facility] [address] [place] [address] Angeline Sim DO Refill Request (Losartan) 12/09/2023 Orders Only [facility] [address] [place] [address] Angeline Sim DO 1 scan: (1-Ord) 12/07/2023 12/07/2023 12:50 PM CDT Office Visit [facility] [address] [place] [address] Angeline Sim DO Hospital F/U (DOD 12/01/23) 12/07/2023 Travel from Last 3 Months Immunizations Name Administration Dates Next Due Influenza A (H1N1), Inactivated (Age >=3 Years) 05/01/2012 Influenza, High-dose Inactivated 01/01/2016,03/17 Pneumococcal Poly,23-Valent (Pneumovax) 05/21/19 05 Td (Age >=7 Years) 01/22/2005 Family History Medical History Relation Name Comments Hypertension Brother 1 Heart Disease Brother 2 CABG Heart Disease Father PR Macular degeneration Other muncle Cancer-breast Sister Relation [...] Answer Date Recorded PHQ-2 TOTAL SCORE 0 01/09/2024 Social Connections Answer Date Recorded Frequency of Communication with Friends and Fami ly 0 01/09/2024 Financial Resource Strain Answer Date R ecorded Difficulty of Paying Living Expenses 3 01/09/2024 Difficulty of Paying Living Expenses Not on file 01/09/2024 Food Insecurity Answer Date Recorded Worried About Running Out of Food in the Last Ye ar 1 01/09/2024 Transportation Needs Answer Date Record ed Lack of Transportation (Medical) 1 01/09/2024 Housing Stability Answer Date Recorded Unable to Pay for Housing in the Last Year 1 01/09/2024 Sex and Gender Information Value Date Recorded [...] Sign Reading Time Taken Comments Blood Pressure 122/58 01/09/2024 1:28 PM CDT Pulse 88 01/09/2024 1:28 PM CDT Temperature 36.9 ??C (98.4 ??F) 12/07/2023 1 2:58 PM CDT Respiratory Rate 14 11/25/2022 8:15 AM CDT Oxygen Saturation 96% 12/07/2023 12: 58 PM CDT Inhaled Oxygen Concentration - - Weight 57.9 kg (127 lb 11.2 oz) 01/09/2024 1:28 PM CDT Height 150.5 cm (4' 11.25) 01/09/2024 1:28 PM C DT Body Mass Index 25.57 01/09/2024 1:28 PM CDT Plan of Treatment Upcoming Encounters Date Type Department Care Team (Late st Contact Info) Description 02/23/2024 1:30 PM CDT Office Visit [facility] [address] [place] [address] Bernie Vázquez MBBS [address] [facility] [address] [place], [place] [phone] Health Maintenance Due Date Last Done Comments COVID-19 vaccine series (#1) 1943 Tdap 1949 Zoster (shingles) series for age 50+ (1 of 2) 1957 RSV vaccine for adults or (1 - 1-dose 75+ series) 2013 Tetanus booster 01/22/2015 01/22/2005 Influenza for age 65+ 01/15/2024 01/01/2016 , 04/08/2015, 05/01/2012 BMI (ht and wt on same day) for age 18+ 01/08/2025 01/09/2024, 12/07/2023, 04/28/2023, Additional history exists Depression screening for age 12+ 01/08/2025 01/09/2024, 12/09/2022, 11/12/2022, Additional history exists Medicare Wellness for age 65+ 01/09/2025, 12/09/2022, 11/12/2021, Additional history exists Pneumococcal series for age 65+ Completed 05/21/2004, 10/29/1999 (Completed outside of [facility]) DEXA/DXA scan for age 65+ Completed 2022, 05/18/2018, 01/08/2016 Goals Goal Patient Goal Type Associated Problems Recent Progress Patient-Stated? Author BLOOD PRESSURE - Maintains BP less than 130/80 Blood Pressure No Minna Loco MA BLOOD PRESSURE - Maintains BP less than 140/90 Blood Pressure No Minna Loco MA Medical Devices Implanted Type Area Aeronautics Teacher Device Identifier Shelf Expiration Date Model / Serial / Lot Iol Sarpy Preload 1 Pc Clear 6mm 24.00 Diopter Tecnis - [id number] Implanted:Qty : 1 on 11/25/2022 by Sukhi Edgar MD at [facility] Implants Right: Eye [employer] 07/31/2025 [id number] 0 / [id number] 1 / NA Stem Hip Sz4 Profemur Tl Titnm - [id number] Implanted:Qty : 1 on 05/19/2012 by Ricco Woodruff MD at [facility] Right: Hip 06/19/2019 [id number]# / / [id number] Head Fem Metal 36mm -3.5 - [id number] Implanted:Qty : 1 on 05/19/2012 by Ricco Woodruff MD at [facility] Right: Hip 01/17/2018 [id number] # / / [id number] Profemur Neck 8deg V/V Shrt C - [id number] Implanted:Qty : 1 on 05/19/2012 by Ricco Woodruff MD at [facility] Right: Hip 11/17/2019 [id number]# / / [id number] Liner Hip Id36mm Dynasty A-Class Pe - [id number] Implanted:Qty : 1 on 05/19/2012 by Ricco Woodruff MD at [facility] Right: Hip [employer] Inc 02/17/2020 [id number]# / / [id number] Screw Bone 2.0cm - [id number] Implanted:Qty : 1 on 05/19/2012 by Ricco Woodruff MD at [facility] Right: Hip [employer] Inc 07/17/2012 [id number] # / / [id number] Shell 52mm Grp D Dyn - [id number] Implanted:Qty : 1 on 05/19/2012 by Ricco Woodruff MD at [facility] Right: Hip [employer] 03/19/2020 [id number] # / / [id number] Screw Bone 2.0cm - [id number] Implanted:Qty : 1 on 05/19/2012 by Ricco Woodruff MD at [facility] Right: Hip [employer] 10/17/2018 [id number] # / / [id number] Pin Jason Thread 16in - [id number] Implanted:Qty : 1 on 05/19/2012 at [facility] Demi Biomet 47-2620-1 3# / / [id number] 3# Iol Sarpy Preload 1 Pc Clear 6mm 23.00 Diopter Tecnis - [id number] Implanted:Qty : 1 on 11/11/2022 by Sukhi Edgar MD at [facility] Left: Eye [employer] 07/25/2025 [id number] 0 / [id number] / NA Explanted Type Area Aeronautics Teacher Device Identifier Shelf Expiration Date Model / Serial / Lot Pin Jason Thread 316in - [id number] Explanted:Qty: 1 on 05/19/2012 at [facility] Demi [employer]omet 47-2620-13# / / [id number]# Procedures Procedure Name Priority Date/Time Associated Diagnosis Comments IMMUNOFIXATION,SERUM Routine 01/09/2024 2:17 PM CDT Myalgia PRO-BNP Add On 01/09/2024 2:17 PM CDT Chronic diastolic heart failure (HC) Chronic cough CBC WITH AUTO DIFFERENTIAL Routine 01/09/2024 2:17 PM CDT Normochromic anemia FERRITIN Routine 01/09/2024 2:17 PM CDT Myalgia Other abnormality of red blood cells PROTEIN ELP SERUM W REFLEX Routine 01/09/2024 2:17 PM CDT Myalgia C-REACTIVE PROTEIN Routine 01/09/2024 2: 17 PM CDT Myalgia SEDIMENTATION RATE Routine 01/09/2024 2: 17 PM CDT Myalgia CK TOTAL Routine 01/09/2024 2:17 PM CDT Myalgia VITAMIN D 25 (DEFICIENCY) Routine 01/09/2024 2:17 PM CDT Myalgia Chronic kidney disease, stage 3a (HC) MAGNESIUM Routine 01/09/2024 2:17 PM CDT Myalgia LIPID PANEL W REFLEX MEASURED LDL Routine 01/09/2024 2:17 PM CDT Hypercholesteremia COMP METABOLIC PANEL Routine 01/09/2024 2:17 PM CDT Essential hypertension Stage 3a chronic kidney disease (HC) CBC WITH AUTO DIFFERENTIAL Routine 01/09/2024 2:17 PM CDT Normochromic anemia VITAMIN B12 Routine 01/09/2024 2:17 PM CDT Vitamin B12 deficiency HEMOGLOBIN A1C Routine 01/09/2024 2:17 PM CDT Prediabetes XR CHEST 2 VIEWS PA AND LATERAL Routine 01/09/2024 2:11 PM CDT Chronic cough EXTENDED HOLTER Routine 01/02/2024 Cerebrovascular accident (CVA) due to stenosis of precerebral artery (HC) Irregular heart beat EKG 12 LEAD Routine 12/07/2023 12:00 AM CDT Irregular heart beat XR DXA BONE DENSITY 2 SITES AXIAL Routine 12/22/2022 9:23 AM CDT Osteopenia of multiple sites from Last 3 Months or Most Recently Relevant to Health Maintenance Results * SEDIMENTATION RATE (01/09/2024 2:17 PM CDT) [facility] SEDIMENTATION RATE 14 <30 mm/hr 2023 10:44 PM CDT [facility] Blood BLOOD SPECIMEN / Unknown Venipuncture / Unknown 01/09/2024 2:17 PM CDT 01/09/2024 2:17 PM CDT Angeline Chairezpatricia DO HEMATOLOGY [facility] [address] [place] [address], [place] * (ABNORMAL) PROTEIN ELP SERUM W REFLEX (01/09/2024 2:17 PM CDT) ELP,ALBUMIN 4.57 3.31 - 5.31 g/dL 01/12/2024 1:23 PM CDT [facility] ELP,ALPHA 1 0.30 0.19 - 0.42 g/dL 01/12/2024 1:23 PM CDT [facility] ELP,ALPHA 2 0.99 0.44 - 1.03 g/dL 01/12/2024 1:23 PM CDT [facility] ELP,GAMMA 0.50(L) 0.59 - 1.46 g/dL 01/12/2024 1:23 PM CDT [facility] ELP,BETA 0.74 0.52 - 1.05 g/dL 01/12/2024 1:23 PM CDT [facility] ELP INTERP,SERUM Moderate hypogammaglobulinemia can be seen in immunodeficiency states, protein-losing enteropathy, advanced age, or light chain disease. No monoclonal protein detected. Interpreted and electronically signed by: Ilana Cortes MD ? 01/12/2024 1:23 PM CDT [facility] PROTEIN,TOTA L 7.1 6.0 - 8.0 g/dL 01/12/2024 1:23 PM CDT [facility] Blood BLOOD SPECIMEN / Unknown Venipuncture / Unknown 01/09/2024 2:17 PM CDT 01/09/2024 2:17 PM CDT Angeline Sue Chiquis DO CHEMISTRY [facility] [address] [place] [address], * (ABNORMAL) CBC WITH AUTO DIFFERENTIAL (01/09/2024 2:17 PM CDT) WHITE BLOOD COUNT 3.9(L) 4.5 - 11.0 thou/cu mm 01/09/2024 2:21 PM CDT [facility] RED BLOOD COUNT 3.93(L) 4.00 - 5.20 mil/cu mm 01/09/2024 2:21 PM CDT [facility] HEMOGLOBIN 11.3(L) 12.0 - 16.0 g/dL 01/09/2024 2:21 PM CDT [facility] HEMATOCRIT 34.1 33.0 - 51.0 % 01/09/2024 2:21 PM CDT [facility] MCV 87 80 - 100 fL 01/09/2024 2:21 PM CDT [facility] MCH 28.8 26.0 - 34.0 pg 01/09/2024 2:21 PM CDT [facility] MCHC 33.1 32.0 - 36.0 g/dL 01/09/2024 2:21 PM CDT [facility] RDW 14.1 11.5 - 15.5 % 01/09/2024 2:21 PM CDT [facility] PLATELET COUNT 261 140 - 440 thou/cu mm 01/09/2024 2:21 PM CDT [facility] MPV 9.4 6.5 - 11.0 fL 01/09/2024 2:21 PM CDT [facility] % NEUT 64.4 % 01/09/2024 2:21 PM CDT [facility] % LYMPH 18.2 % 01/09/2024 2:21 PM CDT [facility] % MONO 13.0 % 01/09/2024 2:21 PM CDT [facility] % EOS 3.1 % 01/09/2024 2:21 PM CDT [facility] % BASO 1.3 % 01/09/2024 2:21 PM CDT [facility] ABSOLUTE NEUTROPHILS 2.5 1.7 - 7.0 thou/cu mm 01/09/2024 2:21 PM CDT [facility] ABSOLUTE LYMPHOCYTES 0.7(L) 0.9 - 2.9 thou/cu mm 01/09/2024 2:21 PM CDT [facility] ABSOLUTE MONOCYTES 0.5 <0.9 thou/cu mm 01/09/2024 2:21 PM CDT [facility] ABSOLUTE EOSINOPHILS 0.1 <0.5 thou/cu mm 01/09/2024 2:21 PM CDT [facility] ABSOLUTE BASOPHILS 0.1 <0.3 thou/cu mm 01/09/2024 2:21 PM CDT [facility] Blood BLOOD SPECIMEN / Unknown Venipuncture / Unknown 01/09/2024 2:17 PM CDT 01/09/2024 2:17 PM CDT Angeline Sim DO HEMATOLOGY Performing Organization Address [facility]/State/ZIP Co de Phone Number [facility] [address] [place] [address], * HEMOGLOBIN A1C SCREENING (01/09/2024 2:17 PM CDT) HEMOGLOBIN A1C SCREENING 6.2 <=6.4 % 01/10/2024 6:27 AM CDT [facility] Blood BLOOD SPECIMEN / Unknown Venipuncture / Unknown 01/09/2024 2:17 PM CDT 01/09/2024 2:17 PM CDT Narrative [facility] - 01/10/2024 6:27 AM CDT ? (<5.7%) ?Normal ? (5.7% to 6.4%) ? Indicates prediabetes ? (>=6.5%) ? Confirms diabetes Falsely low levels may be seen with: Recent Transfusion, Recent Significant Blood Loss, Hemolytic Diseases, or Falsely elevated levels may be seen with: Untreated Anemias, Splenectomy Angeline Sim DO CHEMISTRY [facility] [address] [place] [address], [place] * (ABNORMAL) LIPID PANEL W REFLEX MEASURED LDL (01/09/2024 2:17 PM CDT) CHOLESTEROL,TOTAL 255(H) 100 - 199 mg/dL 01/09/2024 11:19 PM CDT [facility] Comment: Cholesterol, Total Reference Ranges Desirable <200 mg/dL Borderline 200-239 mg/dL High >=240 mg/dL TRIGLYCERIDES 229(H) <150 mg/dL 01/09/2024 11:19 PM CDT [facility] HDL CHOLESTEROL 79 >40 mg/dL 11:19 PM CDT [facility] NON-HDL CHOLESTEROL 176(H) <145 mg/dl 01/09/2024 11:19 PM CDT [facility] CHOL/HDL RATIO 3.23 <4.50 01/09/2024 11:19 PM CDT [facility] LDL CHOLESTEROL 130 <=130 mg/dL 01/09/2024 11:19 PM CDT [facility] VLDL CHOLESTEROL 46(H) <=30 mg/dL 01/09/2024 11:19 PM CDT [facility] PROVIDER ORDERED STATUS RANDOM 01/09/2024 11:19 PM CDT [facility] Blood BLOOD SPECIMEN / Unknown Venipuncture / Unknown 01/09/2024 2:17 PM CDT 01/09/2024 2:17 PM CDT Angeline Sim DO CHEMISTRY Performing Organization Address City/[facility]/ZIP Co de Phone Number [facility] [address] [place] [address], [place] * VITAMIN D 25 (DEFICIENCY) (01/09/2024 2:17 PM CDT) VITAMIN D TOTAL 35.0 20.0 - 80.0 ng/mL 01/09/2024 11:19 PM CDT [facility] Blood BLOOD SPECIMEN / Unknown Venipuncture / Unknown 01/09/2024 2:17 PM CDT 01/09/2024 2:17 PM CDT Narrative [facility] - 01/09/2024 11:19 PM CDT ? Vitamin D Status Deficiency: ? <20 ng/mL Insufficiency: ?20-29 ng/mL Sufficiency: ?30-80 ng/mL Possible Toxicity: ??>80 ng/mL Based on Davey of Medicine recommendations Biotin supplements may cause clinically significant interference for this test assay. ??If interference is suspected, it is strongly recommended that biotin is discontinued for at least one week prior to retesting. Angeline Sim DO SEND OUTS [facility] [address] [place] [address], * (ABNORMAL) IMMUNOFIXATION,SERUM (01/09/2024 2:17 PM CDT) IGG 518.64(L) 610.30 - 1,616.00 mg/dL 01/12/2024 1:23 PM CDT [facility] IGA 120.11 84.50 - 499.00 mg/dL 01/12/2024 1:23 PM CDT [facility] IGM 44.29 35.00 - 242.00 mg/dL 01/12/2024 1:23 PM CDT [facility] IFIX INTERP,SERUM Immunofixation on serum shows no monoclonal protein detected and no free light chains detected. Interpreted and electronically signed by: Ilana Cortes MD 01/12/2024 1:23 PM CDT [facility] Blood BLOOD SPECIMEN / Unknown Venipuncture / Unknown 01/09/2024 2:17 PM CDT 01/09/2024 2:17 PM CDT Angeline Brown Chiquis DO CHEMISTRY Performing Organization Address [facility] Co de Phone Number [facility] [address] [place] [address], * C-REACTIVE PROTEIN (01/09/2024 2:17 PM CDT) C-REACTIVE PROTEIN <0.3 <0.5 mg/dL 01/09/2024 11:20 PM CDT [facility] Blood BLOOD SPECIMEN / Unknown Venipuncture / Unknown 01/09/2024 2:17 PM CDT 01/09/2024 2:17 PM CDT Angeline Sim DO CHEMISTRY Performing Organization Address [facility] Co de Phone Number [facility] [address] [place] [address], * PRO-BNP (01/09/2024 2:17 PM CDT) PRO-BNP 245 <450 pg/mL 01/10/2024 1:44 AM CDT [facility] Blood BLOOD SPECIMEN / Unknown Venipuncture / Unknown 01/09/2024 2:17 PM CDT 01/09/2024 2:17 PM CDT Narrative [facility] - 01/10/2024 1:44 AM CDT The following cut-points have been suggested for the use of proBNP for the diagnostic evaluation of heart failure (HF) in patient with acute dyspnea. Patients with eGFR >= 60 Diagnosis (rule in CHF) ? <50 Years Old ?450 pg/mL 50 - 75 Years Old ?900 pg/mL >75 Years Old ? 1800 pg/mL Exclusion (rule out CHF) Age Independent ?300 pg/mL A cutoff of 1200 pg/mL for patients with an eGFR <60 yields a diagnostic sensitivity of 89% and specificity of 72% for acute congestive heart failure. ? Angeline Sim DO SEND OUTS Performing Organization Address [facility] de Phone Number [facility] [address] [place] [address], * MAGNESIUM (01/09/2024 2:17 PM CDT) MAGNESIUM 2.4 1.6 - 2.4 mg/dL 01/09/2024 11:19 PM CDT [facility] Blood BLOOD SPECIMEN / Unknown Venipuncture / Unknown 01/09/2024 2:17 PM CDT 01/09/2024 2:17 PM CDT Angeline Sim DO CHEMISTRY Performing Organization Address [facility] de Phone Number [facility] [address] [place] [address], [place] * (ABNORMAL) FERRITIN (01/09/2024 2:17 PM CDT) FERRITIN 211.0(H) 15.0 - 150.0 ng/mL 01/09/2024 11:19 PM CDT [facility] Blood BLOOD SPECIMEN / Unknown Venipuncture / Unknown 01/09/2024 2:17 PM CDT 01/09/2024 2:17 PM CDT Angeline Sim DO CHEMISTRY Performing Organization Address [facility]/ZIP Co de Phone Number [facility] [address] [place] [address], [place] * VITAMIN B12 (01/09/2024 2:17 PM CDT) Pathologist [facility] VITAMIN B12 462 232 - 1,245 pg/mL 01/09/2024 11:19 PM CDT [facility] Blood BLOOD SPECIMEN / Unknown Venipuncture / Unknown 01/09/2024 2:17 PM CDT 01/09/2024 2:17 PM CDT Narrative [facility] - 01/09/2024 11:19 PM CDT Biotin supplements may cause clinically significant interference for this test assay. ??If interference is suspected, it is strongly recommended that biotin is discontinued for at least one week prior to retesting. Angeline Sim DO CHEMISTRY Performing Organization Address [facility] Co de Phone Number [facility] [address] [place] [address], * CK TOTAL (01/09/2024 2:17 PM CDT) Pathologist [facility] CK,TOTAL 131 26 - 192 IU/L 01/09/2024 11:42 PM CDT [facility] Blood BLOOD SPECIMEN / Unknown Venipuncture / Unknown 01/09/2024 2:17 PM CDT 01/09/2024 2:17 PM CDT Angeline Sim DO CHEMISTRY Performing Organization Address [facility] Co de Phone Number [facility] [address] [place] [address], [place] * (ABNORMAL) COMP METABOLIC PANEL (01/09/2024 2:17 PM CDT) Pathologist [facility] SODIUM 134(L) 136 - 145 mmol/L 01/09/2024 11:05 PM CDT [facility] POTASSIUM 4.3 3.5 - 5.1 mmol/L 01/09/2024 11:05 PM CDT [facility] CHLORIDE 100 98 - 107 mmol/L 01/09/2024 11:05 PM [facility] CO2,TOTAL 23 22 - 29 mmol/L 01/09/2024 11:05 PM [facility] ANION GAP 11 5 - 18 01/09/2024 11:05 PM [facility] GLUCOSE 106(H) 70 - 99 mg/dL 01/09/2024 11:05 PM [facility] CALCIUM 10.0 8.8 - 10.2 mg/dL 01/09/2024 11:05 PM [facility] BUN 21 8 - 23 mg/dL 01/09/2024 11:05 PM [facility] CREATININE 0.89 0.50 - 0.90 mg/dL 01/09/2024 11:05 PM [facility] BUN/CREAT RATIO 24(H) 10 - 20 11:05 PM [facility] eGFR 64(L) >90 mL/min/1.7 3m2 01/09/2024 11:05 PM [facility] Comment:As of 2021, eG FR is calculated by the CKD-EPI creatinine equation without race adjustment. ??eGFR can be influenced by muscle mass, exercise, and diet. ??The reported eGFR is an estimation only and is only applicable if the renal function is stable. ALBUMIN 4.7 4.0 - 4.9 g/dL 01/09/2024 11:05 PM [facility] PROTEIN,TOTAL 7.1 6.0 - 8.0 g/dL 01/09/2024 11:05 PM [facility] BILIRUBIN,TOTAL 0.2 0.0 - 1.2 mg/dL 01/09/2024 11:05 PM [facility] ALK PHOSPHATASE 71 35 - 104 IU/L 01/09/2024 11:05 PM [facility] ALT (SGPT) 19 10 - 35 IU/L 01/09/2024 11:05 PM CDT [facility] AST (SGOT) 22 10 - 35 IU/L 01/09/2024 11:05 PM CDT [facility] Blood BLOOD SPECIMEN / Unknown Venipuncture / Unknown 01/09/2024 2:17 PM CDT 01/09/2024 2:17 PM CDT Angeline Chairezverafigueroa DO [facility] [address] [place] [address], [place] * XR CHEST 2 VIEWS PA AND LATERAL (01/09/2024 2:11 PM CDT) Anatomical Region Laterality Modality CHEST, THORAX, Lung, HEART Compu lavonne Radiography 01/10/2024 2:32 PM CDT Impressions 01/10/2024 2:32 PM CDT No acute findings. Dictated by Rasheeda Quintana MD @ 01/10/2024 2:32:13 PM (Electronically Signed) Narrative 01/10/2024 2:32 PM CDT For Patients: ??As a result of the Cures Act, medical imaging exams and procedure reports are released immediately into your electronic medical record. ??You may view this report before your referring provider. ??If you have questions, please contact your health care provider. INDICATION: Chronic cough COMPARISON: CT chest 11/06/2020, chest radiograph 07/27/2017 TECHNIQUE: PA and lateral 2 view chest. FINDINGS: Lung volumes are good. No new focal or diffuse opacities. Left lung granulomas similar. Mildly asymmetric right apical scarring is unchanged. No pulmonary edema. No pleural effusion. No pneumothorax. No pneumomediastinum. Normal cardiomediastinal silhouette. Bones: Normal for age. Procedure Note Rasheeda Quintana MD - 01/10/2024 For Patients: As a result of the Cures Act, medical imagingexams and procedure reports are released immediately into your electronicmedical record. You may view this report before your referring provider.If you have questions, please contact your health care provider. INDICATION: Chronic cough COMPARISON: CT chest 11/06/2020, chest radiograph 07/27/2017 TECHNIQUE: PA and lateral 2 view chest. FINDINGS: Lung volumes are good. No new focal or diffuse opacities. Left lunggranulomas similar. Mildly asymmetric right apical scarring is unchanged.No pulmonary edema. No pleural effusion. No pneumothorax. Nopneumomediastinum. Normal cardiomediastinal silhouette. Bones: Normal for age. IMPRESSION: No acute findings. Dictated by Rasheeda Quintana MD @ 01/10/2024 2:32:13 PM (Electronically Signed) Angeline Sim DO GENERAL IMAGING * ZIO PATCH XT - weekly to monthly symptoms. Specifiy duration 3 days, 1 week, or 2 weeks (01/02/2024) Angeline Sim DO CARDIAC SERVICES OR D * EKG 12 LEAD (12/07/2023 12:00 AM CDT) Angeline Sim DO EKG ORD * XR DXA BONE DENSITY 2 SITES [...] result of the Century Cures Act, medical imaging exams and procedure reports are released immediately into your electronic medical record. You may view this report before your referring provider. If you have questions, please contact your health care provider. EXAM: XR DXA BONE DENSITY 2 SITES AXIAL LOCATION: [facility] DATE: 12/22/2022 INDICATION: BMD screening. [...] DXA BONE DENSITY 2 SITES AXIAL LOCATION: [facility] DATE: 12/22/2022 INDICATION: BMD screening. [...] previous DEXA scan was performed at an outsidefacility, therefore direct computer comparison values are not [...] 9:07 AM 05/19/2012 3:49 PM Care Teams Construction Producer Relationship Specialty [place] [address] [place] [address] PCP - General Family Practice 04/08/15 Monik Sotelo MD [address] [place] [address] Hematology Hematology and Oncology 03/17/20 Denise Cisse, YARD WAREHOUSE WORKER [address] [place] [address] Hematology Hematology and Oncology 03/17/20
== END 2024-02-21 22:03 | disposition home or self-care (01) ==
PROVIDERS: Emergency Provider Family Medicine; PCP Family Medicine
DX: D64.9 Anemia, unspecified (principal); I95.1 Orthostatic hypotension
CPT/HCPCS: 99283; 99284

== ENCOUNTER 2024-02-22 08:30 | Outpatient (CLI) | payer MEDICARE, SELFPAY ==
--- OUTSIDE RECORDS SUMMARY | 2024-02-24 12:53 | XMS_ITS | Referral Summary ---
Author Organization [facility] Address [address] [place] [address] Care Team Providers Care Cinema Operator Name Role Phone MihaelaveraAngeline marti DO Primary Care Provider [phone] Allergies Active Allergy Reactions Criticality Noted Date [...] of Treatment Not on file Care Teams Cinema Operator Relationship Specialty [place] [address] [place] [address] PCP - General Family Medicine 12/31/20
--- OUTSIDE RECORDS SUMMARY | 2024-02-24 12:53 | XMS_ITS | Clinical Summary ---
Author Organization [facility] Address [address] [place] [id number] Care Team Providers Care Class B Truck Driver Name Role Phone MihaelaverafigueroaGerardodylan Go DO Primary Care Provider [phone] Allergies Active Allergy Reactions Criticality Noted Date [...] carotid artery s urgery Heart Disease Father [place] Circulatory Mother hypotension Relation Status Comments Brother [...] of Treatment Not on file Care Teams Class B Truck Driver Relationship Specialty [place] [address] [place] [address] PCP - General Family Medicine 12/31/20
== END 2024-02-22 08:31 | disposition home or self-care (01) ==
LOC: NFLDREF 02-24 12:50
PROVIDERS: PCP Family Medicine; Referring Provider Family Medicine; Visit Provider Physician Assistant
DX: R19.7 Diarrhea, unspecified (principal)
CPT/HCPCS: 87045; 87046; 87177; 87209; 87427; 87493

== ENCOUNTER 2024-07-19 11:46 | Outpatient (CLI) | payer MEDICARE, SELFPAY | END 2024-07-19 11:47 | disposition home or self-care (01) | PROVIDERS: PCP Family Medicine; Visit Provider Family Medicine | DX: I10 Essential (primary) hypertension (principal); R42 Dizziness and giddiness; D64.9 Anemia, unspecified; N18.30 Chronic kidney disease, stage 3 unspecified | CPT/HCPCS: 80053; 82043; 82570; 84443 ==

== ENCOUNTER 2024-07-24 13:36 | Outpatient (CLI) | payer MEDICARE, SELFPAY | END 2024-07-24 13:37 | disposition home or self-care (01) | LOC: NFLDREF 07-27 02:52 | PROVIDERS: PCP Family Medicine; Referring Provider Family Medicine; Visit Provider Family Medicine | DX: I10 Essential (primary) hypertension (principal); D64.9 Anemia, unspecified; E87.1 Hypo-osmolality and hyponatremia; R42 Dizziness and giddiness | CPT/HCPCS: 82043; 82570 ==

== ENCOUNTER 2024-08-08 09:35 | Outpatient (CLI) | payer MEDICARE, SELFPAY | END 2024-08-08 09:36 | disposition home or self-care (01) | LOC: RAD 09:35 | PROVIDERS: PCP Family Medicine; Visit Provider Family Medicine | DX: R42 Dizziness and giddiness (principal); I35.1 Nonrheumatic aortic (valve) insufficiency; I34.0 Nonrheumatic mitral (valve) insufficiency; I50.32 Chronic diastolic (congestive) heart failure; I10 Essential (primary) hypertension | CPT/HCPCS: 93306 ==

== ENCOUNTER 2025-01-02 15:37 | Outpatient (CLI) | payer MEDICARE, SELFPAY | END 2025-01-02 15:38 | disposition home or self-care (01) | LOC: LKVREF 15:37 | PROVIDERS: PCP Family Medicine; Visit Provider Physician Assistant | DX: D64.9 Anemia, unspecified (principal); E78.00 Pure hypercholesterolemia, unspecified; I10 Essential (primary) hypertension | CPT/HCPCS: 82728 ==

== ENCOUNTER 2025-01-10 13:00 | Outpatient (RCR) | payer MEDICARE, SELFPAY ==
--- NOTE | 2025-01-09 09:37 | PT.OPE ---
[facility] PT [facility] Eval Start: 01/07/25 15:22 Freq: Status: Active Protocol: Document 01/07/25 15:23 KEITH (Rec: 01/07/25 15:26 KEITH [id number]) E-signed By Ministerio Zuñiga DPT, MS Physical Therapy Outpatient Evaluation Insurance Information Recert Due Date 04/07/25 Insurance Name Medicare B,Blue Cross/Blue Shield Medical Diagnosis Dizziness and giddiness Treating Diagnosis L posterior canal BPPV, hypertension with positional changes against gravity, sensory disorganization, VOR cancellation deficit, gait dysfunction, imbalance Subjective Subjective Pt is an 84 y.o. female with a PMH of a CVA in 2023 who presents to PT with c/o a constant lightheaded dizzy sensation since May 2024. Sxs began during a 3- month period when pt was experiencing chronic diarrhea which ended up being caused by a allergy to Plavix. Resolution of diarrhea since switching to 2 baby aspirin daily but she has experienced near constant lightheadedness since. Feels like she has lost control of her life with increased imbalance and significantly limited activity levels due to lightheadedness and imbalance, especially with an increased fear of falling . Describes she recovered well from her stroke which initially caused L LE weakness over the first few weeks and difficulty speaking for several hours following. Denies lightheadedness or imbalance following her stroke until frequent diarrhea began. Recalls previous low sodium levels with recent labs showing low iron levels but has not begun iron supplements. Denies GONZALEZ, neck pain, room spinning dizziness sensations with sxs feeling primarily as a disorientation in her head, especially with getting out of bed or standing quickly. Busy environments increase disorientation sxs causing her to leave those environments quickly. Pt lives alone in a split-level home with 7 steps to reach the main level of her house which have been more difficult since May. 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 Has not driven since May. Returns to her PCP in 15 days and has an appt at [facility] in January for orthostatic testing. AGGR factors: supine<>sit and sit to stand transfers, balance in dark and uneven surfaces, quick head and body movements, busy environments. ALLEV factors: slow movements, rest. Pt hopes to test for BPPV and resolve lightheaded sensations to safely increase activity levels. Pain Comments Mild-mod constant lightheadedness/ dizziness Current Work Status Retired Occupation Lives alone in a split entry home with 7 stairs. Pt's daughter available for assistance at home and with transportation Precautions Therapy Limitations/ Not Limited Systems Review Objective Functional Test DHI: 82 Performed & Score Assessment Assessment/ Pt displays signs and symptoms consistent with L Impression posterior canalithiasis BPPV with + L Marah Hallpike testing on the second test. She continued to experience constant lightheaded sensations following L posterior CRM x 2, especially after returning to sitting from the 3rd treatment position. Negative orthostatic hypotension testing today but pt displayed high BP levels following supine to sit transfers (180/92 and 178/91) with a significant increase in BP compared to supine positions. BP will be re-testing in future visits with a smaller BP cuff to ensure accuracy due to time limitations today. This information will be shared with Dr. Bolden prior to her follow-up visit as pt will benefit from further investigation into her BP at rest and with positional changes with orthostatic testing. Sensory disorganization found with testing which is consistent with peripheral vertigo with negative ACCOUNTS PAYABLE ADMINISTRATOR testing today. + VOR cancellation testing with increased sxs with but pt was experiencing dizziness/ lightheadedness prior to testing. Recommended pt avoid sustained flex or ext head positions over the next 48 hours. He would benefit from continued skilled therapy to address these limitations. Primary Functional Therapy goals to be completed in 10 weeks: Limitations 1.Patient will display resolution of L posterior canalithiasis BPPV symptoms for >5 consecutive days to improve safety with pickleball and all daily activities . 2.Pt will display improved balance on compliant surfaces with minimal sway to decrease falls risk with amb. 3. Pt will display improved 4-item DGI testing >02/24 to decrease falls risk and improve safety with amb. 4. Pt will report >75% improvement in DHI questionnaire to significantly improve tolerance to functional activities. Plan of Care Rehabilitation Good Potential Rehabilitation Due to pt's age, PMH and chronic nature of sxs Potential Comments Physical Therapy Therapy goals to be completed in 10 weeks: Goals 1.Patient will display resolution of L posterior canalithiasis BPPV symptoms for >5 consecutive days to improve safety with pickleball and all daily activities . 2.Pt will display improved balance on compliant surfaces with minimal sway to decrease falls risk with amb. 3. Pt will display improved 4-item DGI testing >02/24 to decrease falls risk and improve safety with amb. 4. Pt will report >75% improvement in DHI questionnaire to significantly improve tolerance to functional activities. Coordination/ Referral Source Communication With Treatment Plan/ Canalith Repositioning,Neuromuscular Re-ed,Therapeutic Direct Interventions Exercises Frequency/Duration 1-2x per week for 6-10 visits Patient Will Be Completion of LTG(s),Skills Plateau,Independent w/HEP, Discharged From Independently Progressing Therapy Evaluation Billing Untimed Code 40 Treatment Minutes Complexity Moderate Certification Information Initial 01/07/25 Certification Date Ending Certification 04/07/25 Date Provider Signature Yes Required Provider Signature POC & Medical Necessity Shows Agreement With Physician NPI Number Write NPI# Here Physician Comment/ : Change Physician Signature Please Sign/Date Here & Date Requested
== END 2025-05-10 23:59 | disposition home or self-care (01) ==
PROVIDERS: PCP Family Medicine; Visit Provider Physician Assistant
DX: R42 Dizziness and giddiness (principal); Z51.89 Encounter for other specified aftercare
CPT/HCPCS: 97110; 97162; 97535

== ENCOUNTER 2025-02-13 15:44 | Outpatient (CLI) | payer MEDICARE, SELFPAY | END 2025-02-13 15:45 | disposition home or self-care (01) | PROVIDERS: PCP Family Medicine; Visit Provider Family Medicine | DX: D64.9 Anemia, unspecified (principal); E87.1 Hypo-osmolality and hyponatremia; R73.9 Hyperglycemia, unspecified; I63.9 Cerebral infarction, unspecified; I12.9 Hypertensive chronic kidney disease with stage 1 through stage 4 chronic kidney disease, or unspecified chronic kidney disease; N18.30 Chronic kidney disease, stage 3 unspecified | CPT/HCPCS: 80053; 82043; 82306; 82570 ==

== ENCOUNTER 2025-02-14 14:25 | Outpatient (CLI) | payer MEDICARE, SELFPAY | END 2025-02-14 14:26 | disposition home or self-care (01) | LOC: NFLDREF 02-28 00:56 | PROVIDERS: PCP Family Medicine; Referring Provider Family Medicine; Visit Provider Family Medicine | DX: E87.1 Hypo-osmolality and hyponatremia (principal) | CPT/HCPCS: 82043; 82570 ==